=== PATIENT | female | born 1950 | race Caucasian/White ===

== ENCOUNTER → 2016-09-12 | Day surgery (SDC) | payer OTHER ==
[2016-09-11 08:50] VITALS: Ht 154.9 cm; Wt 74.1 kg
[~2016-09-12] VITALS: Ht 154.9 cm; Wt 74.1 kg
[~2016-09-12] MED LIST: ADVIN25/60 INH; ALBINS/ INH; ALBU18002 INH; ARIP20TA4 PO; ASPI325T39 PO; ASPI325T45 PO; ATOR10TA88 PO; BUPIVACAINE 0.25% 2.5MG/ML PF 10 ML VIAL ONE; BUPRTAB PO; BUPRTAB51 PO; CALC0.2510 PO; CHOL20009 PO; CLON2TAB3 PO; CYCL0.05 OPB; CYCL0.052 OP; CZR25 PO; DENO60SO SQ; DEXL60CA4 PO; DSY50 PO; DULO-24 PO; ESCI1TAB10 PO; FLUT0.0529; FLUT0.15 NAE; GLUC1CAP35 PO; GLUCPOW41 PO; HYDR200T5 PO; IMMU4INJ SQ; IOPAMIDOL INJ 61% 15 ML VIAL ONE; IPRASOL4 INH; LACTCAP3 PO; LEVO200T PO; LEVO200T6 PO; LIDOCAINE HCL 1% MPF 5 ML VIAL ONE; LOSA1TAB38 PO; METH1TAB81 PO; MIRT15TA53 PO; MIRT45TA PO; MONT1TAB3 PO; OMEG-112 PO; OMEG10007 PO; PANC6000 PO; PANT1TAB48 PO; PANT40TA PO; POTA1TAB PO; PRAM1TAB6 PO; PYRI50TA12 PO; RANI300T2 PO; ROPI0.25 PO; ROPI1TAB PO; ROPI8TAB PO; SENNTAB23 PO; SPIR1TAB72 PO; SPRIN/30 INH; TIOTCAP INH; TIZA4CAP PO; VNTHFA/IN INH; ZNTT/150 PO; [UNRECOGNIZED DRUG - CODE] SQ
--- NOTE | 2016-09-12 12:58 | History & Physical Bridge - [place] ---
H&P Re-Evaluation Bridge Note: I have examined the patient, reviewed the History & Physical and in the interval since the performance of the History & Physical I have noted the following changes of clinical significance: No changes noted
--- NOTE | 2016-09-12 13:22 | Discharge Instructions ---
Discharge Instructions Visit Reason for Visit: Sacroiliitis Discharge Discharge Diagnosis / Problem: right sacroilitits Medications Stopped Medications Name(s): ASA LAST DOSE Friday Activity Recommendations Activity Limitations: resume your previous activity Anesthesia . Post Anesthesia Instructions: If you have had General Anesthesia or IV Sedation: * Do not drive today. * Resume driving when surgeon permits. * Do not make important decisions or sign legal documents today. * Call surgeon for: 1. Temperature elevations greater than 101 degrees F. 2. Uncontrollable pain. 3. Excessive bleeding. 4. Persistent nausea and vomiting. 5. Medication intolerance (nausea, vomiting or rash). * For nausea and vomiting use only clear liquids such as: tea, soda, bouillon until nausea subsides, then gradually increase diet as tolerated. * If you have any concerns or questions, call your surgeon's office. If physician is unavailable and it is an emergency, call 911 or go to the nearest emergency room. . Diet Recommendations Recommended Home Diet: resume previous diet Procedures Procedures Performed: Right Sacroiliac Joint Injection Pending Studies Studies pending at discharge: no Medical Emergencies . Who to Call and When: Medical Emergencies: If at any time you feel your situation is an emergency, please call 911 immediately. . Non-Emergent Contact Non-Emergency issues call your: Specialist . . "Provider Documentation" section prepared by Roney Pelayo.
[2016-09-12 13:26] VITALS: TEMP 37
[2016-09-12 13:29] VITALS: BP 111/70; PULSE 68; O2SAT 95
--- NOTE | 2016-09-12 13:46 | OPERATIVE REPORT ---
DATE OF OPERATION: 09/12/2016 PREOPERATIVE DIAGNOSIS: Right sacroiliitis. POSTOPERATIVE DIAGNOSIS: Same. PROCEDURE: Right sacroiliac joint injection under fluoroscopic guidance. INDICATIONS: The patient is a 66-year-old white female who has received SI joint injections in the past with good results. Last one she received was a little more than 6 months ago; however, the pain has returned and is problematic to her. She presents today for a right sacroiliac joint injection under fluoroscopic guidance. PHYSICAL EXAMINATION: Pleasant female seated comfortably. She has point tenderness to palpation of her right SI joint. This is worse with extension and a positive David maneuver. Negative straight leg raises and intact sensation distally. CONSENT: Verbal and written consent was obtained from the patient. Risks and benefits were reviewed. Risks include but are not limited to abscess and allergic reaction. She wishes to proceed. PROCEDURE: The patient was taken back to the special procedures room of [facility]. She was maintained in a prone position. Backside was cleansed with Betadine x3 and a dry sterile dressing was applied. Fluoroscope was used to identify the right sacroiliac joint and the overlying skin was anesthetized with 4 mL of lidocaine 1% with a 25 gauge 1.5-inch needle. A 25 gauge 3.5 inch spinal needle was then directed under fluoroscopic guidance into the SI joint. There was a little give when it entered the joint and she then underwent injection after negative aspiration of 0.25 mL of Isovue 300 contrast which demonstrated intraarticular uptake and placement of the needle. She then underwent injection after negative aspiration of 40 mg of Depo-Medrol and 1.5 mL of bupivacaine 0.25%. Injection was well tolerated. DISPOSITION: 1. The patient is taken out into the discharge recovery area where she will be discharged home once discharge criteria have been met. 2. Follow up in the [facility] office in 2-4 weeks. I attest to the content of the Intraoperative Record and any orders documented therein. Any exceptio ns are noted below.
== END | disposition home or self-care (01) ==
LOC: X.SURG 12:15
PROVIDERS: ATTEND Physical Medicine & Rehabilitation
DX: M46.1 Sacroiliitis, not elsewhere classified (principal); M43.16 Spondylolisthesis, lumbar region

== ENCOUNTER → 2016-10-25 | Outpatient (CLI) | payer OTHER ==
[~2016-10-25] MED LIST changes: -BUPIVACAINE 0.25% 2.5MG/ML PF 10 ML VIAL ONE; -IOPAMIDOL INJ 61% 15 ML VIAL ONE; -LIDOCAINE HCL 1% MPF 5 ML VIAL ONE
[2016-10-25 11:13] LABS: HEMATOCRIT 42.7 % (37-47); MEAN CELL VOLUME 95.3 fL (80-100); MEAN CORPUSCULAR HEMOGLOBIN 32.4 pg (25-34); MEAN PLATELET VOLUME 9.5 fL (7.4-10.4); PLATELET COUNT 325 K/uL (130-400); RED BLOOD COUNT 4.48 M/uL (4.2-5.4); WHITE BLOOD COUNT 7.59 K/uL (4.8-10.8)
[2016-10-25 11:30] LABS: BLOOD UREA NITROGEN 29 mg/dl (7-18); BUN/CREATININE RATIO 24.1 (10-20); CALCIUM 9.1 mg/dl (8.5-10.1); CARBON DIOXIDE 29 mmol/L (21-32); CHLORIDE 100 mmol/L (98-107); GLUCOSE 94 mg/dl (70-99); PHOSPHORUS 2.4 mg/dl (2.5-4.9); POTASSIUM 4.2 mmol/L (3.5-5.1); SODIUM 138 mmol/L (136-145)
== END | disposition home or self-care (01) ==
LOC: C.LAB1850 10:01
PROVIDERS: ATTEND Internal Medicine Nephrology
DX: N18.3 Chronic kidney disease, stage 3 (moderate) (principal)

== ENCOUNTER → 2016-11-28 | Day surgery (SDC) | payer OTHER ==
[2016-11-11 08:07] VITALS: Ht 154.9 cm; Wt 74.1 kg
[~2016-11-28] VITALS: Ht 154.9 cm; Wt 74.1 kg
[~2016-11-28] MED LIST changes: +ATOR10TA82 PO; -ATOR10TA88 PO; +BUPIVACAINE 0.25% 2.5MG/ML PF 10 ML VIAL INFIL ONE; +CEPH500C2 PO; +IOPAMIDOL INJ 61% 15 ML VIAL ONE; +LIDOCAINE HCL 1% MPF 5 ML VIAL ONE; -ROPI0.25 PO
[2016-11-28 14:26] VITALS: TEMP 36.6
[2016-11-28 14:30] VITALS: BP 122/73
[2016-11-28 14:32] VITALS: PULSE 83; O2SAT 91
--- NOTE | 2016-11-28 14:45 | Discharge Instructions ---
Discharge Instructions Date of Service Nov 28, 2016. Visit Reason for Visit: Sacroiliitis Discharge Discharge Diagnosis / Problem: low back pain Discharge Goals Goal(s): Decrease discomfort, Improve function Medications Stopped Medications Name(s): Told to stop blood thinners last dose Friday for aspirin 325mg Activity Recommendations Activity Limitations: resume your previous activity Anesthesia . Post Anesthesia Instructions: If you have had General Anesthesia or IV Sedation: * Do not drive today. * Resume driving when surgeon permits. * Do not make important decisions or sign legal documents today. * Call surgeon for: 1. Temperature elevations greater than 101 degrees F. 2. Uncontrollable pain. 3. Excessive bleeding. 4. Persistent nausea and vomiting. 5. Medication intolerance (nausea, vomiting or rash). * For nausea and vomiting use only clear liquids such as: tea, soda, bouillon until nausea subsides, then gradually increase diet as tolerated. * If you have any concerns or questions, call your surgeon's office. If physician is unavailable and it is an emergency, call 911 or go to the nearest emergency room. . Diet Recommendations Recommended Home Diet: resume previous diet Procedures Procedures Performed: Left Sacroiliac Joint Injection Pending Studies Studies pending at discharge: no Medical Emergencies . Who to Call and When: Medical Emergencies: If at any time you feel your situation is an emergency, please call 911 immediately. . Non-Emergent Contact Non-Emergency issues call your: Specialist . . "Provider Documentation" section prepared by Roney Pelayo.
--- NOTE | 2016-11-28 15:38 | OPERATIVE REPORT ---
DATE OF OPERATION: 11/28/2016 PREOPERATIVE DIAGNOSIS: Left sacroiliitis. POSTOPERATIVE DIAGNOSIS: Same. PROCEDURE: Left sacroiliac joint injection under fluoroscopic guidance. INDICATIONS FOR PROCEDURE: The patient is a 66-year-old white female who has received positive responses to SI joint injections in the past, most recently in the right side and this was done in October 25. Since that time, she subsequently has had resolution of right-sided SI pain, but developed left-sided sacroiliac joint pain and presents today for an injection to provide her with relief. PHYSICAL EXAMINATION: Pleasant female seated comfortably. She has point tenderness to palpation of her left SI joint. It is worse with a little extension and a modified David maneuver is positive. Normal motor and sensory exam down the lower extremities. CONSENT: Verbal and written consent was obtained from the patient. Risks and benefits were reviewed. The risks include but are not limited to epidural abscess and allergic reaction. The patient wishes to proceed. DESCRIPTION OF PROCEDURE: The patient was taken back to the special procedures room of [facility]. She was maintained in a prone position. Backside was cleansed with Betadine x3 and a dry sterile dressing was applied. Fluoroscope was used to identify the left SI joint and the overlying skin was anesthetized with 3 mL of lidocaine 1% with a 25-gauge 1.5-inch needle. A 25-gauge 3.5-inch spinal needle was then directed under fluoroscopic guidance into the joint, it was advanced and then was a give as it entered the joint. Isovue 300 contrast 0.25 of a mL was injected in which demonstrated intraarticular uptake. She then underwent injection after negative aspiration of 40 mg of Depo-Medrol and 1.5 mL of preservative free sodium chloride. Injection was well tolerated. DISPOSITION: 1. The patient is taken out into the discharge recovery area where she will be discharged home once discharge criteria have been met. 2. Follow up in the [facility] office in 2-4 weeks. I attest to the content of the Intraoperative Record and any orders documented therein. Any exceptio ns are noted below.
== END | disposition home or self-care (01) ==
LOC: X.SURG 13:52
PROVIDERS: ATTEND Physical Medicine & Rehabilitation
DX: M46.1 Sacroiliitis, not elsewhere classified (principal)

== ENCOUNTER → 2017-02-13 | Day surgery (SDC) | payer OTHER ==
[2017-01-23 14:09] VITALS: Ht 154.9 cm; Wt 74.1 kg
[~2017-02-13] VITALS: Ht 154.9 cm; Wt 74.1 kg
[~2017-02-13] MED LIST changes: -BUPIVACAINE 0.25% 2.5MG/ML PF 10 ML VIAL INFIL ONE; +BUPIVACAINE 0.25% 2.5MG/ML PF 10 ML VIAL ONE
[2017-02-13 13:33] VITALS: TEMP 36.2
--- NOTE | 2017-02-13 13:39 | Discharge Instructions ---
Discharge Instructions Date of Service Feb 13, 2017. Visit Reason for Visit: Sacriliitis Discharge Discharge Diagnosis / Problem: low back pain Discharge Goals Goal(s): Decrease discomfort, Improve function Activity Recommendations Activity Limitations: resume your previous activity Anesthesia . Post Anesthesia Instructions: If you have had General Anesthesia or IV Sedation: * Do not drive today. * Resume driving when surgeon permits. * Do not make important decisions or sign legal documents today. * Call surgeon for: 1. Temperature elevations greater than 101 degrees F. 2. Uncontrollable pain. 3. Excessive bleeding. 4. Persistent nausea and vomiting. 5. Medication intolerance (nausea, vomiting or rash). * For nausea and vomiting use only clear liquids such as: tea, soda, bouillon until nausea subsides, then gradually increase diet as tolerated. * If you have any concerns or questions, call your surgeon's office. If physician is unavailable and it is an emergency, call 911 or go to the nearest emergency room. . Diet Recommendations Recommended Home Diet: resume previous diet Pending Studies Studies pending at discharge: no Medical Emergencies . Who to Call and When: Medical Emergencies: If at any time you feel your situation is an emergency, please call 911 immediately. . Non-Emergent Contact Non-Emergency issues call your: Specialist . . "Provider Documentation" section prepared by Roney Pelayo. .
[2017-02-13 13:48] VITALS: BP 111/73; PULSE 74; O2SAT 96
--- NOTE | 2017-02-13 13:58 | OPERATIVE REPORT ---
DATE OF OPERATION: 02/13/2017 PREOPERATIVE DIAGNOSES: Right sacroiliitis and underlying lupus. POSTOPERATIVE DIAGNOSES: Same. PROCEDURE: Right sacroiliac joint injection under fluoroscopic guidance. INDICATIONS: The patient is a 66-year-old white female who underwent a left SI joint for sacroiliitis and reports that it did fantastic with resolution of left-sided pain. She subsequently developed pain on the right side. She has underlying lupus and presents today for an injection to provide her with relief of the sacroiliitis. PHYSICAL EXAMINATION: Pleasant female, seated comfortably. She is tender to palpation over her right SI joint. Left is nontender. The pain gets worse with extension. There is a positive David maneuver and she has normal lower extremity sensation and strength. CONSENT: Verbal and written consent was obtained from the patient. Risks and benefits were reviewed. Risks include, but are not limited to infection and allergic reaction. She wishes to proceed. DESCRIPTION OF PROCEDURE: The patient was taken back into the special procedures room of the [facility], where she was maintained in a prone position. Backside was cleansed with Betadine x3. Dry sterile dressing was applied. Fluoroscope was used to identify the right SI joint. Overlying skin was anesthetized with 2.5 mL of lidocaine 1% with a 25-gauge 1-1/2 inch needle. A 25-gauge 3-1/2 inch spinal needle was directed under fluoroscopic guidance into the joint. She then underwent injection after negative aspiration of Isovue 300 contrast 0.25 mL, which showed intraarticular uptake. This was then followed by injection of 40 mg of Depo-Medrol and 1.5 mL of bupivacaine 0.25%. Injection was well tolerated. DISPOSITION: 1. The patient was taken out into the discharge recovery area, where she will be discharged home once discharge criteria have been met. 2. Follow up in the [facility] office in 4 weeks' time. I attest to the content of the Intraoperative Record and any orders documented therein. Any exception s are noted below.
== END | disposition home or self-care (01) ==
LOC: X.SURG 12:38
PROVIDERS: ATTEND Physical Medicine & Rehabilitation
DX: M46.1 Sacroiliitis, not elsewhere classified (principal); M32.9 Systemic lupus erythematosus, unspecified

== ENCOUNTER → 2017-03-26 | Outpatient (CLI) | payer OTHER ==
[~2017-03-26] MED LIST changes: -ATOR10TA82 PO; +ATOR10TA88 PO; -BUPIVACAINE 0.25% 2.5MG/ML PF 10 ML VIAL ONE; -CEPH500C2 PO; -IOPAMIDOL INJ 61% 15 ML VIAL ONE; -LIDOCAINE HCL 1% MPF 5 ML VIAL ONE
--- NOTE | 2017-03-26 12:04 | DIAGNOSTIC IMAGING REPORT ---
ABDOMEN LIMITED (US) CLINICAL HISTORY: R94.5 abnormal liver enzymes COMPARISON STUDY: No previous studies for comparison. FINDINGS: The pancreas appears normal as visualized. There is slightly coarsened hepatic echotexture without evidence of focal mass. The gallbladder surgically absent. There is no ductal dilatation. The common bile duct measures 5 mm. There is no right-sided hydronephrosis. IMPRESSION: Surgically absent gallbladder. Slightly coarsened hepatic echotexture without evidence of focal mass. No ductal dilatation Electronically signed by: Conrad Fierro M.D. 03/26/2017 12:03 PM Dictated Date/Time: 03/26/2017 12:02 PM
== END | disposition home or self-care (01) ==
LOC: C.ULTR 11:19
PROVIDERS: ATTEND Family Medicine
DX: R94.5 Abnormal results of liver function studies (principal)

== ENCOUNTER → 2017-04-08 | Outpatient (CLI) | payer OTHER ==
--- NOTE | 2017-04-08 09:36 | DIAGNOSTIC IMAGING REPORT ---
CHEST 2 VIEWS ROUTINE CLINICAL HISTORY: 66 years-old Female presenting with CHRONIC COUGH. TECHNIQUE: PA and lateral views of the chest were obtained. COMPARISON: 03/04/2016. FINDINGS: Left-sided implanted medical records technician projects over the left mid lung, unchanged. Cardiomediastinal silhouette normal. Lungs and pleural spaces clear. Chronic deformity of the right humeral neck consistent with prior fracture. Surgical clips projecting over the right upper quadrant may be present. IMPRESSION: 1. No acute cardiopulmonary disease. Electronically signed by: Daryl Curtis M.D. 04/08/2017 9:35 AM Dictated Date/Time: 04/08/2017 9:34 AM
== END | disposition home or self-care (01) ==
LOC: C.RAD1850 09:02
PROVIDERS: ATTEND Student in an Organized Health Care Education/Training Program
DX: R05 Cough (principal)

== ENCOUNTER 2017-04-10 10:05 | Emergency (ER) | payer OTHER ==
[~2017-04-10] VITALS: Ht 152.4 cm; Wt 76.6 kg
[~2017-04-10 10:05] MED LIST changes: -ADVIN25/60 INH; -ALBINS/ INH; -ALBU18002 INH; -ASPI325T39 PO; -ATOR10TA88 PO; -BUPRTAB PO; -CYCL0.052 OP; -CZR25 PO; -DEXL60CA4 PO; -DSY50 PO; -DULO-24 PO; -FLUT0.15 NAE; -GLUC1CAP35 PO; -LEVO200T6 PO; -MIRT15TA53 PO; -OMEG10007 PO; -PANT40TA PO; -PRAM1TAB6 PO; -PYRI50TA12 PO; -ROPI1TAB PO; -SPIR1TAB72 PO; -SPRIN/30 INH; -TIZA4CAP PO; -ZNTT/150 PO; -[UNRECOGNIZED DRUG - CODE] SQ
[2017-04-10 10:30] VITALS: TEMP 36.6; Ht 152.4 cm; Wt 76.6 kg
[2017-04-10] MEDS ORDERED: SODIUM CHLORIDE 0.9% 1000ML 1,000 ML IV STA (10:56)
[2017-04-10] MEDS ORDERED: OPTIRAY 320 IV PRN (11:15)
--- NOTE | 2017-04-10 11:25 | DIAGNOSTIC IMAGING REPORT ---
CHEST ONE VIEW PORTABLE CLINICAL HISTORY: Atypical chest pain COMPARISON STUDY: 04/08/2017 FINDINGS: The cardiac and mediastinal contours are normal. There is no evidence of focal pulmonary consolidation. There is no evidence of failure. No pleural effusions are visualized.[ There are minimal basilar atelectatic changes. There is a cranial neurostimulator projected over the left chest wall. There are old posterior back deformity is involving the right shoulder. IMPRESSION: No active disease in the chest. Electronically signed by: Conrad Fierro M.D. 04/10/2017 11:24 AM Dictated Date/Time: 04/10/2017 11:19 AM
--- NOTE | 2017-04-10 11:30 | EMERGENCY ROOM VISIT NOTE ---
History Report prepared by Danyelle: Sammi Martinez Under the Supervision of: Dr. Santi Lima M.D. First contact with patient: 10:53 Chief Complaint: NEURO SYMPTOMS Stated Complaint: RIGHT ARM GOING NUMB Nursing Triage Summary: Patient ambulatory to triage using cane. Pt states when she was showering this morning her right arm went numb 3 times. Pt states she felt weak all over, has a history of TIAs. Pt states "I feel okay (now)" History of Present Illness The patient is a 66 year old female who presents to the Emergency Room with complaints of an episode for neurological symptoms starting 2 and a half hours ago. The patient states that she woke up this morning and noticed she was shaky. She states when she got a shower and was washing her hair, her left arm became numb. She reports that she couldn't director search her arm at all. She states that 3 episodes of this happened. She reports that her arm has been intermittently tingling. The patient complains of a cough, a headache, and feeling the need to over articulate her words. The patient denies fevers, chills , congestion, nausea, vomiting, diarrhea, constipation, and dizziness. She notes a history of TIA, Lupus, and an essential tremor that required an insertion of a brain stimulator with a neuro transmitter. She notes that she takes an Aspirin daily and had a sinus infection a month ago. Source of History: patient Onset: 2 and a half hours ago Position: other (global) Quality: other (global) Timing: other (episode) Associated Symptoms: + headache, + cough, + numbness, No fevers, No chills, No nausea, No vomiting, No diarrhea Note: The patient complains of tingling and the need to over articulate her words. The patient denies congestion, constipation, and dizziness. Review of Systems See HPI for pertinent positives and negatives. A total of ten systems were reviewed and were otherwise negative. Past Medical & Surgical Medical Problems: (1) Asthma (2) HTN (hypertension) (3) Lupus (4) Osteoporosis (5) TIA (transient ischemic attack) Surgical Problems: (1) H/O: hysterectomy (2) History of cholecystectomy (3) S/P deep brain stimulator placement (4) Status post breast reduction Family History No pertinent family history Social History Smoking Status: Never Smoker Drug Use: none Marital Status: Housing Status: lives with significant other Occupation Status: disabled Current/Historical Medications Scheduled Aripiprazole (Abilify), 20 MG PO DAILY Aspirin (Aspirin Ec), 325 MG PO DAILY Atorvastatin (Lipitor), 10 MG PO HS Bupropion Hcl (Wellbutrin Xl), 150 MG PO DAILY Clonazepam (Klonopin), 1 MG PO AMPM Clonazepam (Klonopin), 2 MG PO QPM Cyclosporine (Ophth) (Restasis), 1 DROP OP BID Denosumab (Prolia), 60 MG SQ [id number] Dexlansoprazole (Dexilant), 60 MG PO UD Duloxetine HCl (Cymbalta), 20 MG PO DAILY Escitalopram Oxalate (Lexapro), 20 MG PO DAILY Fish Oil ([place]-3), 2 CAP PO DAILY Fluticasone Prop/Salmeterol (Advair Diskus 250/50 60 Dose), 1 PUFF INH BID Fluticasone Propionate (Nasal) (Flonase Allergy Relief), 2 SPRAYS RUEL DAILY Sacetxckcps-Founctssdbh-Frg C- (Glucosamine Chondroitin), 1 CAP PO DAILY Hctz/Spironolactone (Spironolactone/Hydrochlor 25-25 mg), 2 TAB PO DAILY Hydroxychloroquine Sulfate (Plaquenil), 400 MG PO DAILY Immune Globulin (Human) Subcut (Hizentra), 12 GM SQ Q7DAYS Levothyroxine Sodium (Levothyroxine Sodium), 200 MCG PO DAILY Losartan Potassium (Losartan Potassium), 25 MG PO DAILY Mirtazapine (Mirtazapine), 15 MG PO HS Pancrelipase (Lipase-Protease- (Creon), 24,000 UNITS PO QID Pantoprazole (Protonix), 40 MG PO DAILY Pramipexole Dihydrochloride (Pramipexole Dihydrochlori), 3.5 TAB PO DAILY Pyridoxine Hcl (Pyridoxine Hcl), 50 MG PO DAILY Ropinirole (Requip), 1 TAB PO TID Tiotropium [place] (Spiriva Handihaler), 1 CAP INH DAILY Tizanidine (Zanaflex), 4 MG PO HS Trazodone HCl (Trazodone HCl), 25 MG PO HS Scheduled PRN Albuterol Sulf (Proventil 0.083% 2.5MG/3ML), 2.5 MG INH Q6 PRN for SOB/Wheezing Albuterol Sulfate (Proair Respiclick), 2 PUFFS INH QID PRN for Wheezing Ranitidine (Zantac), 300 MG PO HS PRN for ACID REFLUX Allergies Coded Allergies: Sumatriptan (Verified Allergy, Severe, ANAPHYLAXIS, 02/13/17) Amlodipine (Verified Allergy, Mild, HIVES, 02/13/17) Cyclobenzaprine (Verified Allergy, Unknown, VERTIGO, 02/13/17) Gabapentin (Verified Allergy, Unknown, STROKE SYMPTOMS, 02/13/17) Methocarbamol (Verified Allergy, Unknown, VERTIGO, 02/13/17) Codeine (Verified Adverse Reaction, Mild, GI SYMPTOMS, 02/13/17) HEADACHE AND STOMACH UPSET Physical Exam Vital Signs Date Time Temp Pulse Resp B/P (MAP) Pulse Ox O2 Delivery O2 Flow Rate FiO2 04/10/17 17:03 75 20 117/77 94 04/10/17 16:16 79 04/10/17 15:45 82 25 04/10/17 15:31 154/69 04/10/17 15:15 24 04/10/17 15:04 74 20 146/80 96 Room Air 04/10/17 14:45 74 22 93 04/10/17 14:34 146/80 04/10/17 14:10 74 92 04/10/17 13:40 70 94 04/10/17 13:22 147/81 04/10/17 13:10 73 17 04/10/17 12:40 65 23 94 04/10/17 12:35 80 15 138/60 96 04/10/17 12:05 75 04/10/17 12:05 75 16 04/10/17 10:30 36.6 73 17 125/78 98 Room Air Physical Exam GENERAL: Awake, alert, well-appearing, in no distress. Tremulous. HENT: Normocephalic, atraumatic. Dry mucus membranes. EYES: Normal conjunctiva. Sclera non-icteric. NECK: Supple. No nuchal rigidity. FROM. No JVD. RESPIRATORY: Clear to auscultation. CARDIAC: Regular rate, normal rhythm. Extremities warm and well perfused. Pulses equal. ABDOMEN: Soft, non-distended. No tenderness to palpation. No rebound or guarding. No masses. RECTAL: Deferred. MUSCULOSKELETAL: Chest examination reveals no tenderness. The back is symmetrical on inspection without obvious abnormality. There is no CVA tenderness to palpation. No joint edema. LOWER EXTREMITIES: Calves are equal size bilaterally and non-tender. No edema. No discoloration. NEURO: Normal sensorium. No sensory or motor deficits noted. Slowed speech but clear with good articulation. Mild dysmetria on the left finger to nose. Gait appears compensated. Otherwise neuro intact. SKIN: No rash or jaundice noted. Medical Decision & Procedures ER Provider Diagnostic Interpretation: Radiology results as stated below per my review and radiologist interpretation: CT ANGIOGRAPHY HEAD COMBO CT DOSE: 981.54 mGy.cm CLINICAL HISTORY: Arm numbness. Possible stroke. TECHNIQUE: Unenhanced images are obtained through the brain. The patient was then rescanned in a dynamic helical fashion during intravenous administration of 118 cc Optiray 320. Arterial phase angiographic images were acquired. MIP images were acquired. A dose lowering technique was utilized adhering to the principles of ALARA. COMPARISON STUDY: Noncontrast head CT dated 12/26/2015 FINDINGS: The noncontrast study, no intra or extra-axial mass lesions are visualized. There are bilateral deep brain thalamic stimulators. There is no acute hemorrhage. There is no midline shift. There is no hydrocephalus. There is no evidence of acute sinusitis. 6 postcontrast images reveal no evidence of major intracranial branch occlusion. There are minor intracranial atheromatous changes. There are no major intracranial branch occlusions. There are no lesion suspicious for aneurysm. There is no evidence of dural venous sinus thrombosis. There is an incidental left frontal developmental venous anomaly IMPRESSION: 1. Bilateral deep brain thalamic stimulators 2. No acute intracranial findings 3. Left frontal developmental venous anomaly 4. No evidence of aneurysm. No major intracranial branch occlusions Electronically signed by: Conrad Fierro M.D. 04/10/2017 1:05 PM Dictated Date/Time: 04/10/2017 1:01 PM CHEST ONE VIEW PORTABLE CLINICAL HISTORY: Atypical chest pain COMPARISON STUDY: 04/08/2017 FINDINGS: The cardiac and mediastinal contours are normal. There is no evidence of focal pulmonary consolidation. There is no evidence of failure. No pleural effusions are visualized.[ There are minimal basilar atelectatic changes. There is a cranial neurostimulator projected over the left chest wall. There are old posterior back deformity is involving the right shoulder. IMPRESSION: No active disease in the chest. Electronically signed by: Conrad Fierro M.D. 04/10/2017 11:24 AM Dictated Date/Time: 04/10/2017 11:19 AM NECK ANGIO WITH CONTRAST HISTORY: Mental status change peripheral neuropathy TECHNIQUE: Multiaxial CT images of the neck were performed following the intravenous administration of contrast to evaluate the major cervical vessels. Maximum intensity projection images were also obtained. All measurements were calculated based on NASCET criteria. A dose lowering technique was utilized adhering to the principles of ALARA. COMPARISON STUDY: None. FINDINGS: The aortic arch and proximal great vessels are widely patent. There is no significant stenosis, occlusion, or dissection identified within the bilateral common carotid, internal carotid, or vertebral arteries. Minimal scattered plaque formation. Mild narrowing distal right vertebral artery felt to be anatomic. IMPRESSION: No significant stenosis, occlusion, or dissection identified within the carotid or vertebral arteries. Minimal scattered plaque formation The above report was generated using voice recognition software. It may contain grammatical, syntax or spelling errors. Electronically signed by: Gamal Toledo M.D. 04/10/2017 1:06 PM Dictated Date/Time: 04/10/2017 1:02 PM Laboratory Results 04/10/17 11:30 Red Blood Count 4.45, Mean Corpuscular Volume 93.0, Mean Corpuscular Hemoglobin 31.9, Mean Corpuscular Hemoglobin Concent 34.3, Mean Platelet Volume 9.5, Neutrophils (%) (Auto) 67.2, Lymphocytes (%) (Auto) 18.7, Monocytes (%) (Auto) 10.7, Eosinophils (%) (Auto) 2.7, Basophils (%) (Auto) 0.5, Neutrophils # (Auto ) 2.70, Lymphocytes # (Auto) 0.75, Monocytes # (Auto) 0.43, Eosinophils # (Auto ) 0.11, Basophils # (Auto) 0.02 04/10/17 11:30 Test 04/10/17 11:30 04/10/17 13:15 White Blood Count 4.02 K/uL (4.8-10.8) Red Blood Count 4.45 M/uL (4.2-5.4) Hemoglobin 14.2 g/dL (12.0-16.0) Hematocrit 41.4 % (37-47) Mean Corpuscular Volume 93.0 fL (80-100) Mean Corpuscular Hemoglobin 31.9 pg (25-34) Mean Corpuscular Hemoglobin Concent 34.3 g/dl (32-36) Platelet Count 266 K/uL (130-400) Mean Platelet Volume 9.5 fL (7.4-10.4) Neutrophils (%) (Auto) 67.2 % Lymphocytes (%) (Auto) 18.7 % Monocytes (%) (Auto) 10.7 % Eosinophils (%) (Auto) 2.7 % Basophils (%) (Auto) 0.5 % Neutrophils # (Auto) 2.70 K/uL (1.4-6.5) Lymphocytes # (Auto) 0.75 K/uL (1.2-3.4) Monocytes # (Auto) 0.43 K/uL (0.11-0.59) Eosinophils # (Auto) 0.11 K/uL (0-0.5) Basophils # (Auto) 0.02 K/uL (0-0.2) RDW Standard Deviation 45.9 fL (36.4-46.3) RDW Coefficient of Variation 13.5 % (11.5-14.5) Immature Granulocyte % (Auto) 0.2 % Immature Granulocyte # (Auto) 0.01 K/uL (0.00-0.02) Anion Gap 3.0 mmol/L (3-11) Est Creatinine Clear Calc Drug Dose 54.3 ml/min Estimated GFR () 74.7 Estimated GFR (Non- 64.4 BUN/Creatinine Ratio 13.4 (10-20) Calcium Level 9.1 mg/dl (8.5-10.1) Phosphorus Level 2.7 mg/dl (2.5-4.9) Magnesium Level 2.1 mg/dl (1.8-2.4) Troponin I < 0.015 ng/ml (0-0.045) Urine Color YELLOW Urine Appearance CLEAR (CLEAR) Urine pH 7.5 (4.5-7.5) Urine Specific [place] 1.020 (1.000-1.030) Urine Protein NEG (NEG) Urine Glucose (UA) NEG (NEG) Urine Ketones NEG (NEG) Urine Occult Blood NEG (NEG) Urine Nitrite NEG (NEG) Urine Bilirubin NEG (NEG) Urine Urobilinogen NEG (NEG) Urine Leukocyte Esterase NEG (NEG) Laboratory results reviewed by me Medications Administered Medications (Trade) Dose Ordered Sig/Heather Route Start Time Stop Time Status Last Admin Dose Admin Sodium Chloride 1,000 ml @ 999 mls/hr Q1H1M STAT IV 04/10/17 10:56 04/10/17 11:56 DC 04/10/17 11:36 999 MLS/HR ECG Indication: weakness Rate (beats per minute): 73 Rhythm: sinus rhythm Findings: PVC, no acute ischemic change, other (normal axis) ED Course 1055: The patient was evaluated in room C1B. A complete history and physical exam was performed. 1056: Ordered NSS 1000 ml @ 999 mls/hr IV. 1442: I discussed the patient's case with Dr. Hutton. He states that the patient does not need to be transferred and that the appropriate work up was completed. He states that if the patient is feeling at baseline then she can be discharged and follow up with neurology. Otherwise, the patient should be further observed by internal medicine. 1505: I reevaluated the patient. The patient does not feel at baseline and would like to be further observed. 1532: Discussed the patient's case with Dr. Tran. The patient will be evaluated for further treatment and disposition. 1654: The patient did not want to stay for further evaluation so she will be discharged home. She verbalized understanding and agreement. The patient is ready for discharge. Medical Decision I reviewed the patient's past medical history, medications, and the nursing notes as described above. Differential diagnoses include movement disorder, TIA, stroke, dehydration, electrolyte abnormality, infection pulmonary vs urinary. Patient is a 66-year-old woman with a past medical history of previous TIAs well as refractory essential tremor required deep brain stimulator resents emergency department with acute onset left arm tingling numbness and weakness lasting 5 seconds per history of present illness. On arrival the patient reports that the symptoms mostly resolved although her speech was slightly slowed which was different from normal and her gait appeared slightly compensated which was also not her baseline. Otherwise, patient. Neurologically intact. Mucous members are dry the patient's clinically dry appearance. Patient was given IV fluids with improvement in her symptoms. Otherwise CT CTA of the patient's head and neck was done and was negative for any acute findings with patent vessels. Labs otherwise unremarkable including negative UA. Chest x-ray unremarkable. Discussed with neurology senior radiation therapist for the patient's neurologist Dr. Doewll who did not feel the patient required immediate transfer to [place] where the patient's DBS was placed. Recommended that if the patient was improved symptomatically could be discharged to follow- up with her neurologist or if there are additional concerns could be observed overnight to see if symptoms recur. Initially the patient was agreeable for overnight observation. Patient was seen by medicine hospitalist and in the interim the patient reconsidered and preferred discharge. Considering the patient was back to baseline, discharge with close neuro follow-up reasonable. Findings and plan for follow-up d/w patient. Patient agreeable and d/c'd per discharge instructions. Medication Reconcilliation Current Medication List: was personally reviewed by me Blood Pressure Screening Patient's blood pressure: Elevated blood pressure Blood pressure disposition: Elevated BP felt to be situational Consults Time Called: 1440 Consulting Physician: Dr. Hutton- Oncology Returned Call: 1442 I discussed the patient's case with Dr. Hutton. He states that the patient does not need to be transferred and that the appropriate work up was completed. He states that if the patient is feeling at baseline then she can be discharged and follow up with neurology. Otherwise, the patient should be further observed by internal medicine. Additional Consults: Time Called: 1526 Consulted Physician: Dr. Tran- Internal Medicine Returned Call: 1530 Additional Comments: Discussed the patient's case with Dr. Tran. The patient will be evaluated for further treatment and disposition. Impression Primary Impression: Paresthesia Additional Impression: Weakness of extremity Scribe Attestation The scribe's documentation has been prepared under my direction and personally reviewed by me in its entirety. I confirm that the note above accurately reflects all work, treatment, procedures, and medical decision making performed by me. Departure Information Dispostion Home / Self-Care Referrals Alyse Iglesias M.D. (PCP) Forms HOME CARE DOCUMENTATION FORM, IMPORTANT VISIT INFORMATION, WORK / SCHOOL INSTRUCTIONS Patient Instructions ED Paraesthesias, ED Weakness [facility], My [facility] Additional Instructions Please follow up with your neurologist in the next 1-3 days for reevaluation. You were mildly dehydrated which may have precipitated your symptoms. Otherwise, your exam, lab results, CT scan did not show signs of an emergent condition at this time. Drink plenty of fluids and ensure hydration. Return to the emergency department for worsening symptoms as described in the accompanying instructions. Problem Qualifiers
[2017-04-10 11:42] LABS: BASO % 0.5 %; BASO ABS # 0.02 K/uL (0-0.2); COMPLETE YES; EOS % 2.7 %; HEMATOCRIT 41.4 % (37-47); IG% 0.2 %; LYMPH % 18.7 %; LYMPH ABS # 0.75 K/uL (1.2-3.4); MEAN CORPUSCULAR HEMOGLOBIN 31.9 pg (25-34); MEAN CORPUSCULAR HGB CONC 34.3 g/dl (32-36); MEAN PLATELET VOLUME 9.5 fL (7.4-10.4); MONO % 10.7 %; NEUT % 67.2 %; PLATELET COUNT 266 K/uL (130-400); RED BLOOD COUNT 4.45 M/uL (4.2-5.4); WHITE BLOOD COUNT 4.02 K/uL (4.8-10.8)
[2017-04-10 12:00] LABS: BLOOD UREA NITROGEN 12 mg/dl (7-18); BUN/CREATININE RATIO 13.4 (10-20); CALCIUM 9.1 mg/dl (8.5-10.1); CARBON DIOXIDE 31 mmol/L (21-32); CHLORIDE 98 mmol/L (98-107); CREATININE 0.92 mg/dl (0.60-1.20); GLUCOSE 86 mg/dl (70-99); MAGNESIUM 2.1 mg/dl (1.8-2.4); POTASSIUM 3.7 mmol/L (3.5-5.1); SODIUM 132 mmol/L (136-145)
[2017-04-10] MEDS ORDERED: HYDR200T5 PO (12:02)
[2017-04-10] MEDS ORDERED: ADVIN25/60 INH (12:02)
[2017-04-10] MEDS ORDERED: SPIR1TAB72 PO (12:02)
[2017-04-10] MEDS ORDERED: ALBINS/ INH (12:02)
[2017-04-10] MEDS ORDERED: ESCI1TAB10 PO (12:02)
[2017-04-10] MEDS ORDERED: ASPI325T39 PO (12:02)
[2017-04-10] MEDS ORDERED: LEVO200T6 PO (12:02)
[2017-04-10] MEDS ORDERED: GLUC1CAP35 PO (12:02)
[2017-04-10] MEDS ORDERED: ZNTT/150 PO (12:02)
[2017-04-10] MEDS ORDERED: CZR25 PO (12:02)
[2017-04-10] MEDS ORDERED: CLON2TAB3 PO ×2 (12:02)
[2017-04-10] MEDS ORDERED: PANT40TA PO (12:02)
[2017-04-10] MEDS ORDERED: BUPRTAB PO (12:02)
[2017-04-10] MEDS ORDERED: ARIP20TA4 PO (12:02)
[2017-04-10] MEDS ORDERED: DENO60SO SQ (12:02)
[2017-04-10] MEDS ORDERED: TIZA4CAP PO (12:02)
[2017-04-10] MEDS ORDERED: DULO-24 PO (12:02)
[2017-04-10] MEDS ORDERED: CYCL0.052 OP (12:02)
[2017-04-10] MEDS ORDERED: PANC6000 PO (12:02)
[2017-04-10] MEDS ORDERED: ALBU18002 INH (12:02)
[2017-04-10] MEDS ORDERED: PYRI50TA12 PO (12:02)
[2017-04-10] MEDS ORDERED: OMEG10007 PO (12:02)
[2017-04-10] MEDS ORDERED: ROPI1TAB PO (12:02)
[2017-04-10] MEDS ORDERED: [UNRECOGNIZED DRUG - CODE] SQ (12:02)
[2017-04-10] MEDS ORDERED: ATOR10TA88 PO (12:02)
[2017-04-10] MEDS ORDERED: SPRIN/30 INH (12:02)
[2017-04-10] MEDS ORDERED: PRAM1TAB6 PO (12:02)
[2017-04-10] MEDS ORDERED: FLUT0.15 NAE (12:02)
[2017-04-10] MEDS ORDERED: DSY50 PO (12:02)
[2017-04-10] MEDS ORDERED: MIRT15TA53 PO (12:02)
[2017-04-10] MEDS ORDERED: DEXL60CA4 PO (12:02)
[2017-04-10 12:05] LABS: PHOSPHORUS 2.7 mg/dl (2.5-4.9)
--- NOTE | 2017-04-10 13:07 | DIAGNOSTIC IMAGING REPORT ---
CT ANGIOGRAPHY HEAD COMBO CT DOSE: 981.54 mGy.cm CLINICAL HISTORY: Arm numbness. Possible stroke. TECHNIQUE: Unenhanced images are obtained through the brain. The patient was then rescanned in a dynamic helical fashion during intravenous administration of 118 cc Optiray 320. Arterial phase angiographic images were acquired. MIP images were acquired. A dose lowering technique was utilized adhering to the principles of ALARA. COMPARISON STUDY: Noncontrast head CT dated 12/26/2015 FINDINGS: The noncontrast study, no intra or extra-axial mass lesions are visualized. There are bilateral deep brain thalamic stimulators. There is no acute hemorrhage. There is no midline shift. There is no hydrocephalus. There is no evidence of acute sinusitis. 6 postcontrast images reveal no evidence of major intracranial branch occlusion. There are minor intracranial atheromatous changes. There are no major intracranial branch occlusions. There are no lesion suspicious for aneurysm. There is no evidence of dural venous sinus thrombosis. There is an incidental left frontal developmental venous anomaly IMPRESSION: 1. Bilateral deep brain thalamic stimulators 2. No acute intracranial findings 3. Left frontal developmental venous anomaly 4. No evidence of aneurysm. No major intracranial branch occlusions Electronically signed by: Conrad Fierro M.D. 04/10/2017 1:05 PM Dictated Date/Time: 04/10/2017 1:01 PM
--- NOTE | 2017-04-10 13:08 | DIAGNOSTIC IMAGING REPORT ---
NECK ANGIO WITH CONTRAST HISTORY: Mental status change peripheral neuropathy TECHNIQUE: Multiaxial CT images of the neck were performed following the intravenous administration of contrast to evaluate the major cervical vessels. Maximum intensity projection images were also obtained. All measurements were calculated based on NASCET criteria. A dose lowering technique was utilized adhering to the principles of ALARA. COMPARISON STUDY: None. FINDINGS: The aortic arch and proximal great vessels are widely patent. There is no significant stenosis, occlusion, or dissection identified within the bilateral common carotid, internal carotid, or vertebral arteries. Minimal scattered plaque formation. Mild narrowing distal right vertebral artery felt to be anatomic. IMPRESSION: No significant stenosis, occlusion, or dissection identified within the carotid or vertebral arteries. Minimal scattered plaque formation The above report was generated using voice recognition software. It may contain grammatical, syntax or spelling errors. Electronically signed by: Gamal Toledo M.D. 04/10/2017 1:06 PM Dictated Date/Time: 04/10/2017 1:02 PM
[2017-04-10 13:40] LABS: URINE APPEARANCE CLEAR (CLEAR); URINE BILIRUBIN NEG (NEG); URINE COLOR YELLOW; URINE NITRITE NEG (NEG); URINE PH 7.5 (4.5-7.5); UROBILINOGEN NEG (NEG); ZZUR CULT IF INDIC CLEAN CATCH NO
[2017-04-10 13:41] LABS: MANUAL MICROSCOPIC REQUIRED? NO; REVIEW REQ? NO
--- NOTE | 2017-04-10 16:23 | Medical Consult ---
History General Date of Service: Apr 10, 2017. Stated Complaint: Right Arm Going Numb HPI The patient is a 66 year old female who presents to [facility] with complaints of Right Arm Going Numb. The patient's primary care provider is Alyse Iglesias M.D.. This patient presents with transient right arm numbness. The patient says she said for regain of her bili right arm. 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 Patient states during the episode she had no facial droop slurring of speech inability to speak or weakness of her legs that she was standing in the shower. She said she felt this going up towards the bicep area but not involving the shoulder on the right. The patient denies any other recent changes in medication or changes in her health she does take a daily aspirin. She currently is in her normal state Review of Systems ROS: well nourished well developed No double vision blurry vision No problems with speech or swallowing No palpitations, chest pain or pressure No Wheezing or breathing issues No abdominal pain nausea vomiting diarrhea changes in appetite or weight No burning urine urine frequency or changes in color No focal joint pain or muscle pain No skin rashes or oral lesions No unusual bruising or bleeding No focused back pain or numbness or loss of strength is transient and is completely return to normal No changes in memory or confusion Family History No pertinent family history Social History Hx Tobacco Use In Past Year?: No Smoking Status: Never Smoker Marital status: Housing status: lives with family Occupational Status: disabled Immunizations History of Influenza Vaccine: Yes History of Tetanus Vaccine?: Unknown History of Pneumococcal: No History of Hepatitis B Vaccine: No History of MDRO History of MDRO: No Allergies Coded Allergies: Sumatriptan (Verified Allergy, Severe, ANAPHYLAXIS, 02/13/17) Amlodipine (Verified Allergy, Mild, HIVES, 02/13/17) Cyclobenzaprine (Verified Allergy, Unknown, VERTIGO, 02/13/17) Gabapentin (Verified Allergy, Unknown, STROKE SYMPTOMS, 02/13/17) Methocarbamol (Verified Allergy, Unknown, VERTIGO, 02/13/17) Codeine (Verified Adverse Reaction, Mild, GI SYMPTOMS, 02/13/17) HEADACHE AND STOMACH UPSET Current Medications Reported Home Medications Medications Dose Route/Sig Max Daily Dose Days Date Category Dose Instructions Trazodone HCl 50 Mg Tab 25 Mg PO HS 04/10/17 Reported 1/2 OF A 50 MG TABLET Spiriva Handihaler (Tiotropium Minden) 30 Puff/540 Mcg Aerp 1 Cap INH DAILY 04/10/17 Reported Zanaflex (Tizanidine HCl) 4 Mg Cap 4 Mg PO HS 04/10/17 Reported Zantac (Ranitidine HCl) 150 Mg Tab 300 Mg PO HS PRN 04/10/17 Reported TWO 150 MG TABLETS Requip (Ropinirole HCl) Unknown Strength Tab 1 Tab PO TID 04/10/17 Reported Pyridoxine Hcl 50 Mg Tab 50 Mg PO DAILY 04/10/17 Reported Pramipexole Dihydrochlori (Pramipexole Dihydrochloride) 1 Mg Tab 3.5 Tab PO DAILY 04/10/17 Reported 3.5 MG DAILY Protonix (Pantoprazole Sodium) 40 Mg Tab 40 Mg PO DAILY 04/10/17 Reported Creon (Pancrelipase (Lipase-Protease-) 1 Cap Cap 24,000 Units PO QID 04/10/17 Reported WITH EACH MEAL AND SNACK Red Devil-3 (Fish Oil) 1 Ea Cap 2 Cap PO DAILY 04/10/17 Reported Mirtazapine 15 Mg Tab 15 Mg PO HS 04/10/17 Reported Losartan Potassium 25 Mg Tab 25 Mg PO DAILY 04/10/17 Reported Levothyroxine Sodium 200 Mcg Tab 200 Mcg PO DAILY 04/10/17 Reported Hizentra (Immune Globulin (Human) Subcut) 2 Gm/10 Ml Inj 12 Gm SQ Q7DAYS 04/10/17 Reported Plaquenil (Hydroxychloroquine Sulfate) 200 Mg Tab 400 Mg PO DAILY 04/10/17 Reported WITH FOOD OR MILK Spironolactone/Hydrochlor 25-25 mg (HCTZ/Spironolactone) 1 Ea Tab 2 Tab PO DAILY 04/10/17 Reported Advair Diskus 250/50 60 Dose (Fluticasone Prop/Salmeterol) 1 Ea Aerp 1 Puff INH BID 04/10/17 Reported Flonase Allergy Relief (Fluticasone Propionate (Nasal)) 50 Mcg/Act Spr 2 Sprays RUEL DAILY 04/10/17 Reported Lexapro (Escitalopram Oxalate) 20 Mg Tab 20 Mg PO DAILY 04/10/17 Reported Dexilant (Dexlansoprazole) 60 Mg Cap 60 Mg PO UD 04/10/17 Reported Prolia (Denosumab) 60 Mg/Ml Mabel 60 Mg SQ [id number] 04/10/17 Reported Restasis (Cyclosporine (Ophth)) 0.05 % Emu 1 Drop OP BID 04/10/17 Reported Klonopin (Clonazepam) 2 Mg Tab 2 Mg PO QPM 04/10/17 Reported Klonopin (Clonazepam) 2 Mg Tab 1 Mg PO AMPM 04/10/17 Reported 1/2 OF A 2 MG TABLET IN AM AND AT NOON Glucosamine Chondroitin (Uikqsegyqww-Tdpzpkdnpej-Edy C-) 1 Cap Cap 1 Cap PO DAILY 04/10/17 Reported Wellbutrin Xl (Bupropion Hcl) 150 Mg Tab 150 Mg PO DAILY 04/10/17 Reported Lipitor (Atorvastatin Calcium) 10 Mg Tab 10 Mg PO HS 04/10/17 Reported Aspirin Ec (Aspirin) 325 Mg Tab 325 Mg PO DAILY 04/10/17 Reported Proventil 0.083% 2.5MG/3ML (Albuterol Sulf) 2.5 Mg/3 Ml Nebu 2.5 Mg INH Q6 PRN 04/10/17 Reported Proair Respiclick (Albuterol Sulfate) 108 Mcg/Act Aer 2 Puffs INH QID PRN 04/10/17 Reported Cymbalta (Duloxetine HCl) 20 Mg Cap 20 Mg PO DAILY 04/10/17 Reported Abilify (Aripiprazole) 20 Mg Tab 20 Mg PO DAILY 04/10/17 Reported Physical Physical Exam Vital Signs: Date Time Temp Pulse Resp B/P (MAP) Pulse Ox O2 Delivery O2 Flow Rate FiO2 04/10/17 16:16 79 04/10/17 15:45 82 25 04/10/17 15:31 154/69 04/10/17 15:15 24 04/10/17 15:04 74 20 146/80 96 Room Air 04/10/17 14:45 74 22 93 04/10/17 14:34 146/80 04/10/17 14:10 74 92 04/10/17 13:40 70 94 04/10/17 13:22 147/81 04/10/17 13:10 73 17 04/10/17 12:40 65 23 94 04/10/17 12:35 80 15 138/60 96 04/10/17 12:05 75 04/10/17 12:05 75 16 04/10/17 10:30 36.6 73 17 125/78 98 Room Air General Appearance: WELL-APPEARING, WD/WN, NO APPARENT DISTRESS Head: NORMOCEPHALIC, ATRAUMATIC Eyes: PERRLA, EOMI Neck: NORMAL RANGE OF MOTION, TRACHEA MIDLINE Respiratory: BREATH SOUNDS NORMAL, CLEAR TO AUSCULTATION, CLEAR TO PERCUSSION Cardiovasular: REGULAR RATE/RHYTHM, NORMAL S1S2 Abdomen: NON TENDER, NORMAL BOWEL SOUNDS, NO REBOUND Upper Extremities: NO EDEMA, NO DEFORMITY, NORMAL ROM Lower Extremities: NO EDEMA, NO DEFORMITY, NORMAL ROM Neuro: ALERT, ORIENTED x 3, NORMAL MOTOR EXAM, NORMAL SENSATION, other (the physical baseline tremor) Psychiatric: NORMAL AFFECT, NO SUICIDAL IDEATION, CONTRACTS FOR SAFETY Diagnostics Labs Results Past 24 Hours Test 04/10/17 11:30 04/10/17 13:15 Range/Units White Blood Count 4.02 4.8-10.8 K/uL Red Blood Count 4.45 4.2-5.4 M/uL Hemoglobin 14.2 12.0-16.0 g/dL Hematocrit 41.4 37-47 % Mean Corpuscular Volume 93.0 80-100 fL Mean Corpuscular Hemoglobin 31.9 25-34 pg Mean Corpuscular Hemoglobin Concent 34.3 32-36 g/dl Platelet Count 266 130-400 K/uL Mean Platelet Volume 9.5 7.4-10.4 fL Neutrophils (%) (Auto) 67.2 % Lymphocytes (%) (Auto) 18.7 % Monocytes (%) (Auto) 10.7 % Eosinophils (%) (Auto) 2.7 % Basophils (%) (Auto) 0.5 % Neutrophils # (Auto) 2.70 1.4-6.5 K/uL Lymphocytes # (Auto) 0.75 1.2-3.4 K/uL Monocytes # (Auto) 0.43 0.11-0.59 K/uL Eosinophils # (Auto) 0.11 0-0.5 K/uL Basophils # (Auto) 0.02 0-0.2 K/uL RDW Standard Deviation 45.9 36.4-46.3 fL RDW Coefficient of Variation 13.5 11.5-14.5 % Immature Granulocyte % (Auto) 0.2 % Immature Granulocyte # (Auto) 0.01 0.00-0.02 K/uL Sodium Level 132 136-145 mmol/L Potassium Level 3.7 3.5-5.1 mmol/L Chloride Level 98 98-107 mmol/L Carbon Dioxide Level 31 21-32 mmol/L Anion Gap 3.0 3-11 mmol/L Blood Urea Nitrogen 12 7-18 mg/dl Creatinine 0.92 0.60-1.20 mg/dl Est Creatinine Clear Calc Drug Dose 54.3 ml/min Estimated GFR () 74.7 Estimated GFR (Non- 64.4 BUN/Creatinine Ratio 13.4 10-20 Random Glucose 86 70-99 mg/dl Calcium Level 9.1 8.5-10.1 mg/dl Phosphorus Level 2.7 2.5-4.9 mg/dl Magnesium Level 2.1 1.8-2.4 mg/dl Troponin I < 0.015 0-0.045 ng/ml Urine Color YELLOW Urine Appearance CLEAR CLEAR Urine pH 7.5 4.5-7.5 Urine Specific Nolan 1.020 1.000-1.030 Urine Protein NEG NEG Urine Glucose (UA) NEG NEG Urine Ketones NEG NEG Urine Occult Blood NEG NEG Urine Nitrite NEG NEG Urine Bilirubin NEG NEG Urine Urobilinogen NEG NEG Urine Leukocyte Esterase NEG NEG Diagnostic Radiology Normal head CT and CTA of major vessels of the brain Radiology Interpretation: CXR NORMAL EKG Interpretation: NORMAL EKG Impression Assessment and Plan 66-year-old female with transient neurological changes on the contralateral side to her deep brain simulator is With complete resolution of her symptoms, negative imaging studies that we can perform here given her implantable device, it is reasonable to have her return to home continue to take her antiplatelet medication and follow-up with Dr. Dowell her typical neurologist. She states she is also going to contact the surgeon plan at the [facility] and she's had considerations for an MRI to be done in the past's Her chronic medical problems which include asthma thyroiditis and hypothyroidism depression and anxiety lupus hypogammaglobulinemia are stable and she'll maintain her multiple medications regarding these issues. Dr. Dowell's partner Dr. Perez was contacted prior to her being released from the ER to convey message to Dr. Dowell staff to phone the patient April 11 for follow- up on her condition. I discussed the case with Dr. gee is agreeable to discharge from the emergency department
[2017-04-10 17:03] VITALS: BP 117/77; PULSE 75; O2SAT 94
== END 2017-04-10 17:05 | disposition home or self-care (01) ==
LOC: C.EDB 10:10 → C.EDC 17:05
DX: R20.2 Paresthesia of skin (principal); Z86.73 Personal history of transient ischemic attack (TIA), and cerebral infarction without residual deficits; M62.81 Muscle weakness (generalized); J45.909 Unspecified asthma, uncomplicated; I10 Essential (primary) hypertension; E03.9 Hypothyroidism, unspecified; M81.0 Age-related osteoporosis without current pathological fracture; F32.9 Major depressive disorder, single episode, unspecified; Z79.82 Long term (current) use of aspirin; E06.9 Thyroiditis, unspecified; Z79.4 Long term (current) use of insulin; Z79.899 Other long term (current) drug therapy

== ENCOUNTER → 2017-04-17 | Outpatient (CLI) | payer OTHER ==
[~2017-04-17] MED LIST changes: +ADVIN25/60 INH; +ALBINS/ INH; +ALBU18002 INH; +ASPI325T39 PO; -ASPI325T45 PO; +ATOR10TA88 PO; +BUPRTAB PO; -BUPRTAB51 PO; -CALC0.2510 PO; -CHOL20009 PO; -CYCL0.05 OPB; +CYCL0.052 OP; +CZR25 PO; +DEXL60CA4 PO; +DSY50 PO; +DULO-24 PO; -FLUT0.0529; +FLUT0.15 NAE; +GLUC1CAP35 PO; -GLUCPOW41 PO; -IMMU4INJ SQ; -IPRASOL4 INH; -LACTCAP3 PO; -LEVO200T PO; +LEVO200T6 PO; -LOSA1TAB38 PO; -METH1TAB81 PO; +MIRT15TA53 PO; -MIRT45TA PO; -MONT1TAB3 PO; -OMEG-112 PO; +OMEG10007 PO; -PANT1TAB48 PO; +PANT40TA PO; -POTA1TAB PO; +PRAM1TAB6 PO; +PYRI50TA12 PO; -RANI300T2 PO; +ROPI1TAB PO; -ROPI8TAB PO; -SENNTAB23 PO; +SPIR1TAB72 PO; +SPRIN/30 INH; -TIOTCAP INH; +TIZA4CAP PO; -VNTHFA/IN INH; +ZNTT/150 PO; +[UNRECOGNIZED DRUG - CODE] SQ
--- NOTE | 2017-05-01 14:33 | PULMONARY FUNCTION TEST ---
Pre-bronchodilator spirometry is well within normal limits. There was no significant response to bronchodilator, but this should not preclude a therapeutic trial if clinically warranted. Lung volumes and diffusion capacity were well within normal limits. Clinical correlation is needed.
== END | disposition home or self-care (01) ==
LOC: C.RC 12:36
PROVIDERS: ATTEND Student in an Organized Health Care Education/Training Program
DX: R05 Cough (principal)

== ENCOUNTER → 2017-05-05 | Outpatient (CLI) | payer OTHER ==
[2017-05-05 09:54] LABS: URINE APPEARANCE CLEAR (CLEAR); URINE BILIRUBIN NEG (NEG); URINE COLOR YELLOW; URINE NITRITE NEG (NEG); URINE PH 6.5 (4.5-7.5); URINE SPECIFIC GRAVITY 1.017 (1.000-1.030); UROBILINOGEN NEG (NEG)
[2017-05-05 10:00] LABS: MANUAL MICROSCOPIC REQUIRED? NO; REVIEW REQ? NO
[2017-05-05 10:13] LABS: BLOOD UREA NITROGEN 18 mg/dl (7-18); BUN/CREATININE RATIO 18.3 (10-20); CARBON DIOXIDE 33 mmol/L (21-32); CHLORIDE 105 mmol/L (98-107); CREATININE 0.97 mg/dl (0.60-1.20); GLUCOSE 79 mg/dl (70-99); PHOSPHORUS 3.9 mg/dl (2.5-4.9); POTASSIUM 3.8 mmol/L (3.5-5.1); SODIUM 141 mmol/L (136-145)
== END | disposition home or self-care (01) ==
LOC: C.LAB1850 07:45
PROVIDERS: ATTEND Internal Medicine Nephrology
DX: N18.3 Chronic kidney disease, stage 3 (moderate) (principal)

== ENCOUNTER → 2017-07-07 | Outpatient (CLI) | payer OTHER ==
[~2017-07-07] MED LIST changes: +ATOR10TA82 PO; -ATOR10TA88 PO
== END | disposition home or self-care (01) ==
LOC: C.LAB1850 13:27
PROVIDERS: ATTEND Internal Medicine Pulmonary Disease
DX: J45.909 Unspecified asthma, uncomplicated (principal)

== ENCOUNTER → 2017-07-31 | Outpatient (CLI) | payer OTHER ==
[~2017-07-31] MED LIST changes: +CEPH500C2 PO
--- NOTE | 2017-07-31 10:06 | DIAGNOSTIC IMAGING REPORT ---
SACRUM COCCYX MIN 2 VIEWS CLINICAL HISTORY: FALL trauma. Pain. COMPARISON STUDY: None FINDINGS: Nondisplaced cortical fracture sacrococcygeal junction. Sacral foramina are symmetric. Sacroiliac joints are unremarkable. IMPRESSION: Nondisplaced cortical fracture sacrococcygeal junction. The above report was generated using voice recognition software. It may contain grammatical, syntax or spelling errors. Electronically signed by: Gamal Toledo M.D. 07/31/2017 10:05 AM Dictated Date/Time: 07/31/2017 10:04 AM
--- NOTE | 2017-07-31 10:07 | DIAGNOSTIC IMAGING REPORT ---
L WRIST MIN 3 VIEWS ROUTINE CLINICAL HISTORY: Left wrist pain status post trauma COMPARISON: None. DISCUSSION: There is a corticated ossicle adjacent the ulnar styloid. This is felt to be old. No acute fractures or dislocations are visualized. IMPRESSION: No acute fractures or dislocations identified. Electronically signed by: Conrad Fierro M.D. 07/31/2017 10:05 AM Dictated Date/Time: 07/31/2017 10:05 AM
== END | disposition home or self-care (01) ==
LOC: C.RAD1850 09:42
PROVIDERS: ATTEND Family Medicine
DX: S32.10XA Unspecified fracture of sacrum, initial encounter for closed fracture (principal); W19.XXXA Unspecified fall, initial encounter

== ENCOUNTER → 2017-08-08 | Day surgery (SDC) | payer OTHER ==
[2017-07-25 11:36] VITALS: Ht 152.4 cm; Wt 75.0 kg
[~2017-08-08] VITALS: Ht 152.4 cm; Wt 75.0 kg
[~2017-08-08] MED LIST changes: +BUPIVACAINE 0.25% 2.5MG/ML PF 10 ML VIAL ONE; +IOPAMIDOL INJ 61% 15 ML VIAL ONE; +LIDOCAINE HCL 1% MPF 5 ML VIAL ONE; -PYRI50TA12 PO; +PYRI50TA13 PO
[2017-08-08 15:05] VITALS: TEMP 36.7
--- NOTE | 2017-08-08 15:09 | Discharge Instructions ---
Discharge Instructions Date of Service Aug 08, 2017. Visit Reason for Visit: Sacroiliitis Discharge Discharge Diagnosis / Problem: low back pain Discharge Goals Goal(s): Decrease discomfort, Improve function Medications Stopped Medications Name(s): aspirin stopped 08-04-17 Activity Recommendations Activity Limitations: resume your previous activity Anesthesia . Post Anesthesia Instructions: If you have had General Anesthesia or IV Sedation: * Do not drive today. * Resume driving when surgeon permits. * Do not make important decisions or sign legal documents today. * Call surgeon for: 1. Temperature elevations greater than 101 degrees F. 2. Uncontrollable pain. 3. Excessive bleeding. 4. Persistent nausea and vomiting. 5. Medication intolerance (nausea, vomiting or rash). * For nausea and vomiting use only clear liquids such as: tea, soda, bouillon until nausea subsides, then gradually increase diet as tolerated. * If you have any concerns or questions, call your surgeon's office. If physician is unavailable and it is an emergency, call 911 or go to the nearest emergency room. . Diet Recommendations Recommended Home Diet: resume previous diet Procedures Procedures Performed: Bilateral Sacroiliac Joint Injection Pending Studies Studies pending at discharge: no Medical Emergencies . Who to Call and When: Medical Emergencies: If at any time you feel your situation is an emergency, please call 911 immediately. . Non-Emergent Contact Non-Emergency issues call your: Specialist . . "Provider Documentation" section prepared by Roney Pelayo. .
[2017-08-08 15:12] VITALS: BP 159/84; PULSE 78; O2SAT 95
--- NOTE | 2017-08-08 15:33 | OPERATIVE REPORT ---
DATE OF OPERATION: 08/08/2017 PREOPERATIVE DIAGNOSIS: Bilateral sacroiliitis. POSTOPERATIVE DIAGNOSIS: Same. PROCEDURE: Bilateral sacroiliac joint injections under fluoroscopic guidance. INDICATIONS: The patient is a 67-year-old white female, who returns for SI joint injections. She has received them with great results 6 months ago. She has an underlying inflammatory arthritis and she gets relief with sacroiliac joint injections. PHYSICAL EXAMINATION: Pleasant female seated comfortably. She has point tenderness to palpation of the SI joints, worse with extension and positive provocative maneuvers of the SI joints. She has normal motor and sensory exam. No focal weakness. Negative seated straight leg raises. CONSENT: Verbal and written consent was obtained from the patient. Risks and benefits were reviewed. Risks include, but are not limited to abscess and allergic reaction. The patient wishes to proceed. DESCRIPTION OF PROCEDURE: The patient was taken back into the special procedures room of [facility]. She was maintained in a prone position. Backside was cleansed with Betadine x3 and a dry sterile dressing was applied. Fluoroscope was used to identify the left SI joint and the overlying skin was anesthetized with 2.5 mL of lidocaine 1% with a 25-gauge 1-1/2 inch needle. A 25-gauge 3-1/2 inch needle was then directed into the joint. Isovue-300 contrast 0.25 mL or less confirmed its presence intraarticularly. She then underwent injection after negative aspiration of 40 mg Depo-Medrol and 1.5 mL of bupivacaine 0.25%. Then, the right SI joint was then fluoroscopically identified. Overlying skin anesthetized with 2.5 mL of lidocaine 1% with a 25-gauge 1-1/2 inch needle and a 25-gauge 3-1/2 inch needle was then directed under fluoroscopic guidance into the joint. Isovue-300 contrast 0.25 mL or less was injected in which showed intraarticular placement and nice spread. She then underwent injection after negative aspiration of 40 mg of Depo-Medrol and 1.5 mL of bupivacaine 0.25%. DISPOSITION: 1. The patient was taken out into the discharge recovery area, where she will be discharged home once discharge criteria have been met. 2. Follow up in the [facility] office in 2-4 weeks. I attest to the content of the Intraoperative Record and any orders documented therein. Any exception s are noted below.
== END | disposition home or self-care (01) ==
LOC: X.SURG 13:35
PROVIDERS: ATTEND Physical Medicine & Rehabilitation
DX: M46.1 Sacroiliitis, not elsewhere classified (principal)

== ENCOUNTER → 2017-09-12 | Outpatient (CLI) | payer OTHER ==
[~2017-09-12] MED LIST changes: -BUPIVACAINE 0.25% 2.5MG/ML PF 10 ML VIAL ONE; -CEPH500C2 PO; -IOPAMIDOL INJ 61% 15 ML VIAL ONE; -LIDOCAINE HCL 1% MPF 5 ML VIAL ONE
--- NOTE | 2017-09-15 07:45 | MAMMOGRAPHY REPORT ---
BILATERAL DIGITAL SCREENING MAMMOGRAM TOMOSYNTHESIS WITH CAD: 09/12/2017 CLINICAL HISTORY: Routine screening. Patient has no complaints. TECHNIQUE: Breast tomosynthesis in addition to standard 2D mammography was performed. Current study was also evaluated with a Computer Aided Detection (CAD) system. COMPARISON: Comparison is made to exams dated: 07/24/2016 ultrasound, 07/07/2015 mammogram, 4 ultrasound, 05/20/2014 mammogram, 07/19/2013 mammogram, and 07/24/2016 mammogram - [facility]. BREAST COMPOSITION: The tissue of both breasts is almost entirely fatty. FINDINGS: No suspicious masses, calcifications, or areas of architectural distortion are noted in ei ther breast. There has been no significant interval change compared to prior exams. Scattered bilater al benign-appearing calcifications are not significantly changed. A neurostimulator overlies and obs cures portions of the left superior breast on the MLO view. IMPRESSION: ACR BI-RADS CATEGORY 2: BENIGN There is no mammographic evidence of malignancy. A 1 year screening mammogram is recommended. The pa tient will receive written notification of the results. Approximately 10% of breast cancers are not detected with mammography. A negative mammographic report should not delay biopsy if a clinically suggestive mass is present. Janet Bailey M.D. ah/:09/12/2017 15:45:00 Roto Mixer Operator: Savanna NG(R)(M), [facility] letter sent: Normal 1/2 BI-RADS Code: ACR BI-RADS Category 2: Benign
== END | disposition home or self-care (01) ==
LOC: C.MAMM 14:21
PROVIDERS: ATTEND Family Medicine
DX: Z12.31 Encounter for screening mammogram for malignant neoplasm of breast (principal)

== ENCOUNTER → 2017-09-25 | Outpatient (CLI) | payer OTHER ==
--- NOTE | 2017-09-25 14:16 | DIAGNOSTIC IMAGING REPORT ---
KUB CLINICAL HISTORY: 67 years-old Female presenting with FREQUENCY OF MICTURITION. TECHNIQUE: Single supine view of the abdomen was obtained. COMPARISON: CT from 08/04/2015. FINDINGS: Cholecystectomy clips noted. Mild stool burden. Nonobstructive bowel gas pattern. No gross pneumoperitoneum. Allowing for bowel gas and stool, no calcifications to suggest nephrolithiasis. Calcification projecting over the right lower quadrant possibly phlebolith within the right gonadal vein. Left pelvic phleboliths. Osseous structures normal. IMPRESSION: 1. No acute intra-abdominal pathology. No radiographic evidence of nephrolithiasis. Electronically signed by: Daryl Curtis M.D. 09/25/2017 2:14 PM Dictated Date/Time: 09/25/2017 2:07 PM
== END | disposition home or self-care (01) ==
LOC: C.RAD1850 13:40
PROVIDERS: ATTEND Family Medicine
DX: R35.0 Frequency of micturition (principal)

== ENCOUNTER → 2017-11-14 | Outpatient (CLI) | payer OTHER ==
[~2017-11-14] MED LIST changes: +PRAM1TAB10 PO; -PRAM1TAB6 PO; +RANI150T85 PO; -ZNTT/150 PO
--- NOTE | 2017-11-14 19:05 | DIAGNOSTIC IMAGING REPORT ---
R HAND MIN 3 VIEWS ROUTINE CLINICAL HISTORY: 67 years-old Female presenting with UNSPECIFIED INJURY OF UNSPECIFIED WRIST/HAND/FINGE. TECHNIQUE: Frontal, oblique, lateral views of the right hand were obtained. COMPARISON: None. FINDINGS: Osteophytosis noted at the trapezium-first metatarsal articulation as well as the interphalangeal articulation of the first finger. Mild osteophytosis also noted at the proximal and distal interphalangeal joints of the second and third fingers. Overall joint spaces preserved. No acute fracture or malalignment. IMPRESSION: 1. No acute or osseous injury. 2. Degenerative changes at the first carpometacarpal articulation, interphalangeal joint of the first finger, and interphalangeal joints of the second and third fingers. This is characteristic of osteoarthritis. Electronically signed by: Daryl Curtis M.D. 11/14/2017 7:03 PM Dictated Date/Time: 11/14/2017 7:01 PM
== END | disposition home or self-care (01) ==
LOC: C.RAD 18:35
PROVIDERS: ATTEND Family Medicine
DX: S69.90XA Unspecified injury of unspecified wrist, hand and finger(s), initial encounter (principal); X58.XXXA Exposure to other specified factors, initial encounter

== ENCOUNTER → 2017-12-12 | Outpatient (CLI) | payer OTHER ==
[~2017-12-12] MED LIST changes: +CALC500C70 PO; +DOCU100C31 PO; +LUTE20CA PO; +MONT1TAB5 PO; +MULT-160 PO
--- NOTE | 2017-12-12 16:01 | DIAGNOSTIC IMAGING REPORT ---
R SHOULDER MIN 2 VIEWS ROUTINE CLINICAL HISTORY: SHOULDER PAIN pain COMPARISON: None. DISCUSSION: Findings consistent with an old impacted fracture of the humeral neck. Superimposed degenerative changes of the glenohumeral joint. The acromioclavicular joint is intact. There is no evidence for soft tissue swelling. IMPRESSION: Old somewhat impacted fracture right humeral neck with superimposed degenerative change. No acute process. The above report was generated using voice recognition software. It may contain grammatical, syntax or spelling errors. Electronically signed by: Gamal Toledo M.D. 12/12/2017 4:00 PM Dictated Date/Time: 12/12/2017 3:58 PM
== END | disposition home or self-care (01) ==
LOC: C.RAD1850 15:05
PROVIDERS: ATTEND Family Medicine
DX: M25.519 Pain in unspecified shoulder (principal)

== ENCOUNTER 2017-12-17 13:46 | Emergency (ER) | payer OTHER ==
[~2017-12-17] VITALS: Ht 152.4 cm; Wt 80.0 kg
[~2017-12-17 13:46] MED LIST changes: -CALC500C70 PO; -DOCU100C31 PO; -LUTE20CA PO; -MONT1TAB5 PO; -MULT-160 PO
[2017-12-17 13:48] VITALS: TEMP 36.6; Ht 152.4 cm; Wt 80.0 kg
[2017-12-17 14:10] VITALS: O2SAT 93
[2017-12-17] MEDS ORDERED: NITROGLYCERIN 2% OINTMENT 30GM TUBE EXT ONE (14:15)
--- NOTE | 2017-12-17 14:16 | EMERGENCY ROOM VISIT NOTE ---
History Report prepared by Danyelle: Katelyn Benoit Under the Supervision of: Dr. Ayana Macedo D.O. First contact with patient: 14:00 Chief Complaint: CHEST PAIN Stated Complaint: CHEST PAIN History of Present Illness The patient is a 67 year old female who presents to the Emergency Room with complaints of chest pain beginning an hour and a half prior to arrival. She describes the pain today was a pressure pain. She reports that her pain is in the center of her chest and that it radiates to the left of her chest, her back , and her jaw, but that it does not radiate to her arms. The patient states that she was not doing anything when the pain came on and reports that talking exacerbates her pain, but that laying down alleviates her pain. No other change in pain with exertion. She reports feeling nauseous and short of breath, but denies vomiting and swelling in her legs. No current SOB or nausea. The patient states that she did not take medication for her pain today. The patient states that last week she had pressure in her chest again and saw her family doctor. She states that her doctor did an ECG and said she had an infarct recently. The patient reports that she has had this pain in the past but she is not sure what caused it. She states that she has had a heart catheterization done but that it was more than 5 years ago. The patient states that she is scheduled for an echocardiogram on January 01. The patient states that she has a deep brain stimulator. The patient reports a family history of an irregular heart rhythm. No early onset CAD. She reports a history of COPD, depression, Lupus, and thyroid problems, but denies a personal history of hypertension and diabetes. She also reports a history of ulcers 30 years ago and states that today's pain feels different than her ulcers did. Pt denies headache, change in vision, fevers, vomiting, diarrhea, pain with urination, and melena. Source of History: patient Onset: hour and a half prior to arrival Position: chest Quality: pressure Modifying Factors (Worsening): other (talking ) Modifying Factors (Relieving): rest (laying down ) Associated Symptoms: + SOB, + nausea, + back pain, No vomiting Note: also denies: swelling in her legs Review of Systems See HPI for pertinent positives & negatives. A total of 10 systems reviewed and were otherwise negative. Past Medical & Surgical Medical Problems: (1) Asthma (2) Depression (3) HTN (hypertension) (4) Lupus (5) Osteoporosis (6) Stomach ulcer (7) TIA (transient ischemic attack) Surgical Problems: (1) H/O: hysterectomy (2) History of cholecystectomy (3) S/P deep brain stimulator placement (4) Status post breast reduction Family History Diabetes mellitus FHx: cancer Gallbladder disease Heart disease Hypertension Kidney disease Lung disease Social History Smoking Status: Never Smoker Drug Use: none Marital Status: Housing Status: lives with significant other Occupation Status: disabled Current/Historical Medications Scheduled Aripiprazole (Abilify), 20 MG PO DAILY Aspirin (Aspirin Ec), 325 MG PO DAILY Atorvastatin (Lipitor), 20 MG PO HS Calcium/Vitamin D (Os-Silvano 500 Plus D), 1 TAB PO DAILY Clonazepam (Klonopin), 1 MG PO AMPM Cyclosporine (Ophth) (Restasis), 1 DROP OP BID Denosumab (Prolia), 60 MG SQ [id number] Docusate Sodium (Docusate Sodium), 1 CAP PO BID Duloxetine HCl (Cymbalta), 40 MG PO DAILY Escitalopram Oxalate (Lexapro), 20 MG PO DAILY Fluticasone Prop/Salmeterol (Advair Diskus 250/50 60 Dose), 1 PUFF INH BID Fluticasone Propionate (Nasal) (Flonase Allergy Relief), 2 SPRAYS RUEL DAILY Hsuidmeswdw-Rmzxplbshlw-Eak C- (Glucosamine Chondroitin), 1 CAP PO DAILY Hydroxychloroquine Sulfate (Plaquenil), 400 MG PO DAILY Immune Globulin (Human) Subcut (Hizentra), 12 GM SQ Q7DAYS Levothyroxine Sodium (Levothyroxine Sodium), 200 MCG PO DAILY Losartan Potassium (Losartan Potassium), 50 MG PO DAILY Lutein (Lutein), 20 MG PO DAILY Montelukast Sodium (Montelukast Sodium), 1 TAB PO DAILY Multiple Vitamins W/ Calcium (One-A-Day Womens Formula), 1 TAB PO DAILY Pancrelipase (Lipase-Protease- (Creon), 24,000 UNITS PO QID Pantoprazole (Protonix), 40 MG PO DAILY Pramipexole Dihydrochloride (Pramipexole Dihydrochlori), 3.5 TAB PO DAILY Tiotropium Carbon (Spiriva Handihaler), 1 CAP INH DAILY Scheduled PRN Albuterol Sulf (Proventil 0.083% 2.5MG/3ML), 2.5 MG INH Q6 PRN for SOB/Wheezing Albuterol Sulfate (Proair Respiclick), 2 PUFFS INH QID PRN for Wheezing Ranitidine (Zantac), 300 MG PO HS PRN for ACID REFLUX Allergies Coded Allergies: Sumatriptan (Verified Allergy, Severe, ANAPHYLAXIS, 08/08/17) Amlodipine (Verified Allergy, Mild, HIVES, 08/08/17) Cyclobenzaprine (Verified Allergy, Unknown, VERTIGO, 08/08/17) Gabapentin (Verified Allergy, Unknown, STROKE SYMPTOMS, 08/08/17) Methocarbamol (Verified Allergy, Unknown, VERTIGO, 08/08/17) Codeine (Verified Adverse Reaction, Mild, GI SYMPTOMS, 08/08/17) HEADACHE AND STOMACH UPSET Physical Exam Vital Signs Date Time Temp Pulse Resp B/P (MAP) Pulse Ox O2 Delivery O2 Flow Rate FiO2 12/17/17 18:52 84 18 123/63 93 12/17/17 18:12 75 18 121/73 96 Room Air 12/17/17 18:07 84 12/17/17 17:01 82 18 119/67 97 Room Air 12/17/17 16:46 82 18 96 12/17/17 16:31 106/66 12/17/17 16:01 131/65 12/17/17 15:46 80 12/17/17 15:37 77 18 149/81 97 Room Air 12/17/17 15:36 149/81 12/17/17 15:01 126/84 12/17/17 14:46 74 23 94 12/17/17 14:11 95 Room Air 12/17/17 14:10 93 Nasal Cannula 12/17/17 14:10 75 18 143/71 97 Room Air 12/17/17 14:09 80 12/17/17 14:02 143/71 12/17/17 13:48 36.6 79 20 164/82 95 Room Air Physical Exam GENERAL: alert, well appearing, well nourished, no distress, non-toxic EYE EXAM: normal conjunctiva, PERRL and EOM's grossly intact OROPHARYNX: no exudate, no erythema, lips, buccal mucosa, and tongue normal and mucous membranes are moist NECK: supple, no nuchal rigidity, no adenopathy, non-tender LUNGS: Clear to auscultation. Normal chest wall mechanics, no w/r/r HEART: no murmurs, S1 normal and S2 normal, mild reproducible tenderness along the left sternal border ABDOMEN: abdomen soft, non-tender, normo-active bowel sounds, no masses, no rebound or guarding. BACK: Back is symmetrical on inspection and there is no deformity, no midline tenderness, no CVA tenderness. SKIN: no rashes and no bruising UPPER EXTREMITIES: upper extremities are grossly normal. FROM, nml pulses. LOWER EXTREMITIES: No pitting edema. FROM, nml pulses. NEURO EXAM: Normal sensorium, cranial nerves II-XII intact, normal speech, no weakness of arms, no weakness of legs. Speech was slow and deliberate. Medical Decision & Procedures ER Provider Diagnostic Interpretation: Radiology results have been interpreted by the radiologist and reviewed by me. CT ANGIO ABD/PELVIS COMBO CT DOSE: CLINICAL HISTORY: Pain, radiating to the back. Possible aortic dissection. TECHNIQUE: Unenhanced images were obtained through the abdomen and pelvis. The patient was then rescanned in a dynamic helical fashion during intravenous administration of 93 cc of Optiray 320. MIP imaging was performed. A dose lowering technique was utilized adhering to the principles of ALARA. COMPARISON STUDY: July 2015 FINDINGS: Unenhanced images reveal no evidence of acute aortic hematoma. No renal, ureteral, or bladder calculi are visualized. Postcontrast images demonstrate a stable right lobe hepatic hypodensity. The gallbladder surgically absent. No splenic masses are visualized the central phase study. No pancreatic masses are visualized. There are postsurgical changes of a right adrenalectomy. No renal masses are visualized this arterial phase study. There are no transition zones indicate bowel obstruction. There is no evidence of acute appendicitis. There is no evidence of acute diverticulitis. The uterus is surgically absent. There are gas bubbles within the right anterior abdominal wall, likely secondary to an injection site. There is no evidence of abdominal aortic aneurysm. There are separate origins of the common hepatic and splenic arteries. There is no evidence of hemodynamic significant stenosis. There is no celiac artery stenosis. There is no renal artery stenosis. Inferior mesenteric artery is patent. There is no evidence of unilaterally significant common or external iliac artery stenosis. IMPRESSION: 1. No evidence of abdominal aortic aneurysm or dissection. 2. No evidence of bowel obstruction. No evidence of free air 3. Normal appendix. No evidence of acute diverticulitis 4. Gas bubbles within the anterior abdominal wall, possibly secondary to an injection site. Clinical correlation in this regard is advocated Electronically signed by: Conrad Fierro M.D. 12/17/2017 3:45 PM Dictated Date/Time: 12/17/2017 3:[address] CHEST ANGIOGRAPHY WITHOUT A WITH CONTRAST CLINICAL HISTORY: Chest pain radiating to the back. Possible dissection COMPARISON STUDY: Chest x-ray dated 12/17/2017 FINDINGS: Unenhanced images were obtained through the thorax. There is a presumed neurostimulator within the left anterior chest wall with electrodes extending cephalad. There is no evidence of acute aortic hematoma. Postcontrast images reveal no thyroid masses. There are no pathologically enlarged axillary, mediastinal, or hilar lymph nodes. There is no evidence of thoracic aortic aneurysm. There are no intimal flaps to indicate acute aortic dissection. No thrombi are visualized within the central pulmonary arteries. There are no pleural effusions. There is no focal pulmonary consolidation. There are dependent atelectatic changes. IMPRESSION: 1. No evidence of thoracic aortic aneurysm or dissection 2. No evidence of focal pulmonary consolidation Electronically signed by: Conrad Fierro M.D. 12/17/2017 3:36 PM Dictated Date/Time: 12/17/2017 3:33 PM Laboratory Results 12/17/17 14:07 Red Blood Count 4.35, Mean Corpuscular Volume 95.9, Mean Corpuscular Hemoglobin 32.2, Mean Corpuscular Hemoglobin Concent 33.6, Mean Platelet Volume 9.5, Neutrophils (%) (Auto) 64.4, Lymphocytes (%) (Auto) 24.3, Monocytes (%) (Auto) 8.3, Eosinophils (%) (Auto) 2.2, Basophils (%) (Auto) 0.4, Neutrophils # (Auto) 3.17, Lymphocytes # (Auto) 1.20, Monocytes # (Auto) 0.41, Eosinophils # (Auto) 0.11, Basophils # (Auto) 0.02 12/17/17 14:07 Test 12/17/17 14:07 12/17/17 17:24 White Blood Count 4.93 K/uL (4.8-10.8) Red Blood Count 4.35 M/uL (4.2-5.4) Hemoglobin 14.0 g/dL (12.0-16.0) Hematocrit 41.7 % (37-47) Mean Corpuscular Volume 95.9 fL (80-100) Mean Corpuscular Hemoglobin 32.2 pg (25-34) Mean Corpuscular Hemoglobin Concent 33.6 g/dl (32-36) Platelet Count 236 K/uL (130-400) Mean Platelet Volume 9.5 fL (7.4-10.4) Neutrophils (%) (Auto) 64.4 % Lymphocytes (%) (Auto) 24.3 % Monocytes (%) (Auto) 8.3 % Eosinophils (%) (Auto) 2.2 % Basophils (%) (Auto) 0.4 % Neutrophils # (Auto) 3.17 K/uL (1.4-6.5) Lymphocytes # (Auto) 1.20 K/uL (1.2-3.4) Monocytes # (Auto) 0.41 K/uL (0.11-0.59) Eosinophils # (Auto) 0.11 K/uL (0-0.5) Basophils # (Auto) 0.02 K/uL (0-0.2) RDW Standard Deviation 48.3 fL (36.4-46.3) RDW Coefficient of Variation 13.7 % (11.5-14.5) Immature Granulocyte % (Auto) 0.4 % Immature Granulocyte # (Auto) 0.02 K/uL (0.00-0.02) Prothrombin Time 9.9 SECONDS (9.0-12.0) Prothromb Time International Ratio 0.9 (0.9-1.1) D-Dimer 2150 ug/L FEU (0-500) Anion Gap 3.0 mmol/L (3-11) Est Creatinine Clear Calc Drug Dose 51.4 ml/min Estimated GFR () 68.7 Estimated GFR (Non- 59.3 BUN/Creatinine Ratio 22.4 (10-20) Calcium Level 9.3 mg/dl (8.5-10.1) Magnesium Level 2.0 mg/dl (1.8-2.4) Total Bilirubin 0.4 mg/dl (0.2-1) Aspartate Amino Transf (AST/SGOT) 46 U/L (15-37) Alanine Aminotransferase (ALT/SGPT) 54 U/L (12-78) Alkaline Phosphatase 70 U/L (45-117) Pro-B-Type Natriuretic Peptide 36 pg/ml (0-900) Total Protein 7.5 gm/dl (6.4-8.2) Albumin 3.4 gm/dl (3.4-5.0) Globulin 4.1 gm/dl (2.5-4.0) Albumin/Globulin Ratio 0.8 (0.9-2) Thyroid Stimulating Hormone (TSH) 0.462 uIu/ml (0.300-4.500) Troponin I 0.016 ng/ml (0-0.045) Laboratory results per my review. Medications Administered Medications (Trade) Dose Ordered Sig/Heather Route Start Time Stop Time Status Last Admin Dose Admin Nitroglycerin (Nitroglycerin 2% Oint) 1 inch NOW ONCE EXT 12/17/17 14:15 12/17/17 14:16 DC 12/17/17 14:24 1 INCH ECG Per My Interpretation Indication: chest pain Rate (beats per minute): 80 Rhythm: sinus rhythm Findings: no acute ischemic change, other (left axis deviation, normal intervals ) ED Course 1403: The patient was evaluated in room A2. A complete history and physical exam was performed. 1415: Ordered Nitroglycerin 1 inch EXT. 1640: I checked on the patient and she is not having any pain. 1817: The patient has been ambulatory without any repeating symptoms. 1835: Upon reevaluation, the patient is feeling better. I discussed the findings and the treatment plan with the patient. She verbalizes agreement and understanding. She was discharged home. Medical Decision The patient is a 67 year old female who presents to the ED with complaints of chest pain. Differential diagnosis: Etiologies such as cardiac ischemia, aortic dissection, pulmonary embolism, pneumonia, pneumothorax, musculoskeletal, infections, pericarditis, myocarditis , esophageal rupture, gastrointestinal, as well as others were entertained. Heart score 3 Patient well-appearing here, description of symptoms not classic for ACS. Given history of lupus a d-dimer was added which is elevated. Given patient's description of radiation to the back as well as history of lupus, patient sent for CAT scan. CAT scan did not show any other acute pathology, and labs were negative. 2 troponins done 3 hours apart which were both negative. Discussed with patient her risk factors for ACS and keeping her appointment for the outpatient echo as is scheduled. Discussed and encouraged close follow-up with cardiology. Encouraged her can to continue taking her medications as prescribed. Discussed symptoms to watch and return for, she verbalized understanding was agreeable with plan. Patient's deliberate speech and tremor are chronic. Patient's DBS is for her essential tremor and her speech is a side effect of the DBS implantation. I do not suspect acute vascular etiology or PE. I do not suspect hypertensive urgency/emergency. Medication Reconcilliation Current Medication List: was personally reviewed by me Blood Pressure Screening Patient's blood pressure: Elevated blood pressure Blood pressure disposition: Referred to PCP Impression Primary Impression: Chest pain Scribe Attestation The scribe's documentation has been prepared under my direction and personally reviewed by me in its entirety. I confirm that the note above accurately reflects all work, treatment, procedures, and medical decision making performed by me. Departure Information Dispostion Home / Self-Care Referrals Alyse Iglesias M.D. (PCP) Forms Call Back Authorization, HOME CARE DOCUMENTATION FORM, IMPORTANT VISIT INFORMATION Patient Instructions My [facility] Additional Instructions Please continue your scheduled outpatient cardiology evaluation. Please continue regular medications as prescribed. If you have any recurrent episodes of chest pain, develop neck or back pain, pain radiating into the arms, dizziness, sweating, trouble breathing, nausea or vomiting, or you have any other new or concerning symptoms, please return to the ER immediately. Problem Qualifiers Primary Impression: Chest pain Chest pain type: unspecified Qualified Codes: R07.9 - Chest pain, unspecified
[2017-12-17 14:22] LABS: BASO % 0.4 %; BASO ABS # 0.02 K/uL (0-0.2); EOS % 2.2 %; EOS ABS # 0.11 K/uL (0-0.5); HEMATOCRIT 41.7 % (37-47); IG# 0.02 K/uL (0.00-0.02); LYMPH % 24.3 %; MEAN CELL VOLUME 95.9 fL (80-100); MEAN CORPUSCULAR HEMOGLOBIN 32.2 pg (25-34); MEAN CORPUSCULAR HGB CONC 33.6 g/dl (32-36); MEAN PLATELET VOLUME 9.5 fL (7.4-10.4); MONO % 8.3 %; MONO ABS # 0.41 K/uL (0.11-0.59); NEUT % 64.4 %; NEUT ABS # 3.17 K/uL (1.4-6.5); PLATELET COUNT 236 K/uL (130-400); RED CELL DISTRIBUTION WIDTH CV 13.7 % (11.5-14.5); RED CELL DISTRIBUTION WIDTH SD 48.3 fL (36.4-46.3); WHITE BLOOD COUNT 4.93 K/uL (4.8-10.8)
[2017-12-17 14:33] LABS: INR 0.9 (0.9-1.1)
[2017-12-17 14:44] LABS: ALBUMIN 3.4 gm/dl (3.4-5.0); CALCIUM 9.3 mg/dl (8.5-10.1); CREATININE 0.98 mg/dl (0.60-1.20); POTASSIUM 3.7 mmol/L (3.5-5.1)
[2017-12-17 14:55] LABS: TOTAL PROTEIN 7.5 gm/dl (6.4-8.2)
[2017-12-17] MEDS ORDERED: OPTIRAY 320 IV PRN (15:00)
[2017-12-17] MEDS ORDERED: DOCU100C31 PO (15:15)
[2017-12-17] MEDS ORDERED: MONT1TAB5 PO (15:15)
[2017-12-17] MEDS ORDERED: CALC500C70 PO (15:15)
[2017-12-17] MEDS ORDERED: LUTE20CA PO (15:15)
[2017-12-17] MEDS ORDERED: MULT-160 PO (15:15)
--- NOTE | 2017-12-17 15:38 | DIAGNOSTIC IMAGING REPORT ---
CT CHEST ANGIOGRAPHY WITHOUT A WITH CONTRAST CLINICAL HISTORY: Chest pain radiating to the back. Possible dissection COMPARISON STUDY: Chest x-ray dated 12/17/2017 FINDINGS: Unenhanced images were obtained through the thorax. There is a presumed neurostimulator within the left anterior chest wall with electrodes extending cephalad. There is no evidence of acute aortic hematoma. Postcontrast images reveal no thyroid masses. There are no pathologically enlarged axillary, mediastinal, or hilar lymph nodes. There is no evidence of thoracic aortic aneurysm. There are no intimal flaps to indicate acute aortic dissection. No thrombi are visualized within the central pulmonary arteries. There are no pleural effusions. There is no focal pulmonary consolidation. There are dependent atelectatic changes. IMPRESSION: 1. No evidence of thoracic aortic aneurysm or dissection 2. No evidence of focal pulmonary consolidation Electronically signed by: Conrad Fierro M.D. 12/17/2017 3:36 PM Dictated Date/Time: 12/17/2017 3:33 PM
--- NOTE | 2017-12-17 15:46 | DIAGNOSTIC IMAGING REPORT ---
CT ANGIO ABD/PELVIS COMBO CT DOSE: CLINICAL HISTORY: Pain, radiating to the back. Possible aortic dissection. TECHNIQUE: Unenhanced images were obtained through the abdomen and pelvis. The patient was then rescanned in a dynamic helical fashion during intravenous administration of 93 cc of Optiray 320. MIP imaging was performed. A dose lowering technique was utilized adhering to the principles of ALARA. COMPARISON STUDY: July 2015 FINDINGS: Unenhanced images reveal no evidence of acute aortic hematoma. No renal, ureteral, or bladder calculi are visualized. Postcontrast images demonstrate a stable right lobe hepatic hypodensity. The gallbladder surgically absent. No splenic masses are visualized the central phase study. No pancreatic masses are visualized. There are postsurgical changes of a right adrenalectomy. No renal masses are visualized this arterial phase study. There are no transition zones indicate bowel obstruction. There is no evidence of acute appendicitis. There is no evidence of acute diverticulitis. The uterus is surgically absent. There are gas bubbles within the right anterior abdominal wall, likely secondary to an injection site. There is no evidence of abdominal aortic aneurysm. There are separate origins of the common hepatic and splenic arteries. There is no evidence of hemodynamic significant stenosis. There is no celiac artery stenosis. There is no renal artery stenosis. Inferior mesenteric artery is patent. There is no evidence of unilaterally significant common or external iliac artery stenosis. IMPRESSION: 1. No evidence of abdominal aortic aneurysm or dissection. 2. No evidence of bowel obstruction. No evidence of free air 3. Normal appendix. No evidence of acute diverticulitis 4. Gas bubbles within the anterior abdominal wall, possibly secondary to an injection site. Clinical correlation in this regard is advocated Electronically signed by: Conrad Fierro M.D. 12/17/2017 3:45 PM Dictated Date/Time: 12/17/2017 3:39 PM
[2017-12-17 18:52] VITALS: BP 123/63; PULSE 84; O2SAT 93
--- NOTE | 2017-12-17 20:59 | DIAGNOSTIC IMAGING REPORT ---
CHEST ONE VIEW PORTABLE CLINICAL HISTORY: Chest pain. COMPARISON STUDY: Chest radiograph April 10, 2017. FINDINGS: A electronic stimulator device is noted. Lung volumes are normal. Lungs are clear. No pneumothorax or pleural effusion is noted. There is no evidence for pulmonary edema. Chronic deformity of the right humeral head is again noted. IMPRESSION: No acute cardiopulmonary findings. Electronically signed by: Dash Bassett M.D. 12/17/2017 8:57 PM Dictated Date/Time: 12/17/2017 8:56 PM
== END 2017-12-17 18:53 | disposition home or self-care (01) ==
LOC: C.EDB 13:47 → C.EDA 18:53
DX: R07.9 Chest pain, unspecified (principal); R06.02 Shortness of breath; R11.0 Nausea; J44.9 Chronic obstructive pulmonary disease, unspecified; I10 Essential (primary) hypertension; Z79.82 Long term (current) use of aspirin; Z79.899 Other long term (current) drug therapy; Z96.9 Presence of functional implant, unspecified; Z88.8 Allergy status to other drugs, medicaments and biological substances; Z88.6 Allergy status to analgesic agent; Z82.49 Family history of ischemic heart disease and other diseases of the circulatory system; Z83.6 Family history of other diseases of the respiratory system

== ENCOUNTER → 2018-03-13 | Outpatient (CLI) | payer OTHER ==
[~2018-03-13] MED LIST changes: +ASPI81TA28 PO; +AZEL0.056 NAE; -BUPRTAB PO; +CALC500C70 PO; +CLON2TAB10 PO; -CLON2TAB3 PO; +CLON2TAB9 PO; -DEXL60CA4 PO; +DOCU100C31 PO; -DSY50 PO; +LEVO175T PO; +LUTE20CA PO; -MIRT15TA53 PO; +MONT1TAB5 PO; +MULT-160 PO; -OMEG10007 PO; -PYRI50TA13 PO; -ROPI1TAB PO; -SPIR1TAB72 PO; -TIZA4CAP PO
--- NOTE | 2018-03-13 14:21 | DIAGNOSTIC IMAGING REPORT ---
THYROID ULTRASOUND CLINICAL HISTORY: Enlarged thyroid. COMPARISON STUDY: Thyroid ultrasound July 13, 2015. TECHNIQUE: Sonography of the thyroid gland was performed. FINDINGS: Right thyroid lobe measures 3.8 x 1.2 x 1.5 cm and the left lobe measures 3.6 x 1 x 1.2 cm. A peripherally calcified 6 mm left lobe thyroid nodule is unchanged since exam of July 13, 2015. Note is made of a possible 1 cm isoechoic right lobe nodule which was not visualized on previous exam. This may reflect normal thyroid parenchyma and does not meet criteria for biopsy. IMPRESSION: Normal size thyroid gland which contains a few subcentimeter thyroid nodules which do not meet criteria for biopsy. Electronically signed by: Dash Bassett M.D. 03/13/2018 2:20 PM Dictated Date/Time: 03/13/2018 2:17 PM
== END | disposition home or self-care (01) ==
LOC: C.ULTR 13:20
PROVIDERS: ATTEND Physician Assistant
DX: E04.9 Nontoxic goiter, unspecified (principal)

== ENCOUNTER 2018-04-03 05:10 | Day surgery (SDC) | payer OTHER ==
[2018-03-20 13:43] VITALS: BMI 33.0
--- NOTE | 2018-03-24 15:55 | PAT Medication Instructions ---
Service Date Mar 24, 2018. Current Home Medication List Albuterol Sulf (Proventil 0.083% 2.5MG/3ML), 2.5 MG INH Q6 PRN for SOB/Wheezing Albuterol Sulfate (Proair Respiclick), 2 PUFFS INH QID PRN for Wheezing Aripiprazole (Abilify), 10 MG PO HS Aspirin (Aspirin Ec), 81 MG PO QAM Azelastine HCl (Azelastine HCl), 1 SPRAY RUEL UD Calcium/Vitamin D (Os-Silvano 500 Plus D), 1 TAB PO QAM Clonazepam (Klonopin), 1 MG PO AMPM Clonazepam (Klonopin), 2 MG PO HS Cyclosporine (Ophth) (Restasis), 1 DROP OP BID Denosumab (Prolia), 60 MG SQ [id number] Docusate Sodium (Docusate Sodium), 1 CAP PO QAM Duloxetine HCl (Cymbalta), 40 MG PO QAM Escitalopram Oxalate (Lexapro), 20 MG PO HS Fluticasone Prop/Salmeterol (Advair Diskus 250/50 60 Dose), 1 PUFF INH BID Yfxyrbajsno-Ueoaztvpwdb-Ueg C- (Glucosamine Chondroitin), 1 CAP PO QAM Hydroxychloroquine Sulfate (Plaquenil), 400 MG PO QAM Immune Globulin (Human) Subcut (Hizentra), 12 GM SQ Q7DAYS Levothyroxine Sodium (Synthroid), 175 MCG PO QAM Losartan Potassium (Losartan Potassium), 50 MG PO HS Lutein (Lutein), 20 MG PO QAM Montelukast Sodium (Montelukast Sodium), 1 TAB PO HS Multiple Vitamins W/ Calcium (One-A-Day Womens Formula), 1 TAB PO QAM Pancrelipase (Lipase-Protease- (Creon), 24,000 UNITS PO QAM Pantoprazole (Protonix), 40 MG PO QAM Pramipexole Dihydrochloride (Pramipexole Dihydrochlori), 3.5 TAB PO QAM Ranitidine (Zantac), 300 MG PO HS PRN for ACID REFLUX Tiotropium [place] (Spiriva Handihaler), 1 CAP INH QAM Medication Instructions For Your Scheduled Surgery - Check with surgeon and prescribing physician for instructions: Aspirin (Aspirin Ec), 81 MG PO QAM Hydroxychloroquine Sulfate (Plaquenil), 400 MG PO QAM Immune Globulin (Human) Subcut (Hizentra), 12 GM SQ Q7DAYS - Continue as directed: Denosumab (Prolia), 60 MG SQ [id number] - Hold the following medications starting 03/26/18: Xeaetkfhydh-Qgkijyhlaox-Zfh C- (Glucosamine Chondroitin), 1 CAP PO QAM Lutein (Lutein), 20 MG PO QAM - Hold the following medications the morning of surgery: Calcium/Vitamin D (Os-Silvano 500 Plus D), 1 TAB PO QAM Docusate Sodium (Docusate Sodium), 1 CAP PO QAM Multiple Vitamins W/ Calcium (One-A-Day Womens Formula), 1 TAB PO QAM Pancrelipase (Lipase-Protease- (Creon), 24,000 UNITS PO QAM Pramipexole Dihydrochloride (Pramipexole Dihydrochlori), 3.5 TAB PO QAM - Take the following medications the morning of surgery with a sip of water: Albuterol Sulf (Proventil 0.083% 2.5MG/3ML), 2.5 MG INH Q6 PRN for SOB/Wheezing (if needed) Albuterol Sulfate (Proair Respiclick), 2 PUFFS INH QID PRN for Wheezing (if needed) Clonazepam (Klonopin), 1 MG PO AMPM Azelastine HCl (Azelastine HCl), 1 SPRAY RUEL UD (if needed) Cyclosporine (Ophth) (Restasis), 1 DROP OP BID Duloxetine HCl (Cymbalta), 40 MG PO QAM Fluticasone Prop/Salmeterol (Advair Diskus 250/50 60 Dose), 1 PUFF INH BID Levothyroxine Sodium (Synthroid), 175 MCG PO QAM Pantoprazole (Protonix), 40 MG PO QAM Ranitidine (Zantac), 300 MG PO HS PRN for ACID REFLUX (if needed) Tiotropium [place] (Spiriva Handihaler), 1 CAP INH QAM - Take the following medications as scheduled the night before surgery: Albuterol Sulf (Proventil 0.083% 2.5MG/3ML), 2.5 MG INH Q6 PRN for SOB/Wheezing (if needed) Albuterol Sulfate (Proair Respiclick), 2 PUFFS INH QID PRN for Wheezing (if needed) Aripiprazole (Abilify), 10 MG PO HS Azelastine HCl (Azelastine HCl), 1 SPRAY RUEL UD (if needed) Clonazepam (Klonopin), 1 MG PO AMPM Clonazepam (Klonopin), 2 MG PO HS Cyclosporine (Ophth) (Restasis), 1 DROP OP BID Escitalopram Oxalate (Lexapro), 20 MG PO HS Fluticasone Prop/Salmeterol (Advair Diskus 250/50 60 Dose), 1 PUFF INH BID Losartan Potassium (Losartan Potassium), 50 MG PO HS Montelukast Sodium (Montelukast Sodium), 1 TAB PO HS Ranitidine (Zantac), 300 MG PO HS PRN for ACID REFLUX (if needed) If you have any questions please call us at [phone] or [phone] or [phone]
[2018-03-25 09:26] VITALS: BMI 34.0
[2018-03-25 10:43] LABS: BASO % 0.2 %; BASO ABS # 0.01 K/uL (0-0.2); EOS % 1.5 %; EOS ABS # 0.07 K/uL (0-0.5); HEMATOCRIT 40.6 % (37-47); HEMOGLOBIN 13.3 g/dL (12.0-16.0); IG# 0.01 K/uL (0.00-0.02); LYMPH % 22.3 %; LYMPH ABS # 1.05 K/uL (1.2-3.4); MEAN CELL VOLUME 96.2 fL (80-100); MEAN CORPUSCULAR HEMOGLOBIN 31.5 pg (25-34); MEAN CORPUSCULAR HGB CONC 32.8 g/dl (32-36); MEAN PLATELET VOLUME 10.1 fL (7.4-10.4); MONO % 13.2 %; MONO ABS # 0.62 K/uL (0.11-0.59); NEUT % 62.6 %; NEUT ABS # 2.95 K/uL (1.4-6.5); PLATELET COUNT 272 K/uL (130-400); RED CELL DISTRIBUTION WIDTH CV 14.3 % (11.5-14.5); WHITE BLOOD COUNT 4.71 K/uL (4.8-10.8)
[2018-03-25 10:49] LABS: CALCIUM 9.1 mg/dl (8.5-10.1); CREATININE 0.92 mg/dl (0.60-1.20); POTASSIUM 4.5 mmol/L (3.5-5.1)
--- NOTE | 2018-03-30 14:06 | History and Physical ---
History & Physical Date Mar 30, 2018. Chief Complaint sinusitis, drainage, hoarseness History of Present Illness The patient is a 67 year old female with complaints of chronic sinusitis and drainage causing loss of voice Past Medical/Surgical History Medical Problems: (1) Asthma (2) Depression (3) HTN (hypertension) (4) Lupus (5) Osteoporosis (6) Stomach ulcer (7) TIA (transient ischemic attack) Surgical Problems: (1) H/O: hysterectomy (2) History of cholecystectomy (3) S/P deep brain stimulator placement (4) Status post breast reduction Additional History Hepatic Disease: No Endocrine Disorder: Yes Kidney Disease: No Hypertension: No Heart Disease: No Bleeding Tendencies: No Infectious Diseases: No Allergies Coded Allergies: Sumatriptan (Verified Allergy, Severe, ANAPHYLAXIS, 03/20/18) Amlodipine (Verified Allergy, Mild, HIVES, 03/20/18) Cyclobenzaprine (Verified Allergy, Unknown, VERTIGO, 03/20/18) Gabapentin (Verified Allergy, Unknown, STROKE SYMPTOMS, 03/20/18) Methocarbamol (Verified Allergy, Unknown, VERTIGO, 03/20/18) Codeine (Verified Adverse Reaction, Mild, GI SYMPTOMS, 03/20/18) HEADACHE AND STOMACH UPSET Home Medications Scheduled Aripiprazole (Abilify), 10 MG PO HS Aspirin (Aspirin Ec), 81 MG PO QAM Azelastine HCl (Azelastine HCl), 1 SPRAY RUEL UD Calcium/Vitamin D (Os-Silvano 500 Plus D), 1 TAB PO QAM Clonazepam (Klonopin), 1 MG PO AMPM Clonazepam (Klonopin), 2 MG PO HS Cyclosporine (Ophth) (Restasis), 1 DROP OP BID Denosumab (Prolia), 60 MG SQ [id number] Docusate Sodium (Docusate Sodium), 1 CAP PO QAM Duloxetine HCl (Cymbalta), 40 MG PO QAM Escitalopram Oxalate (Lexapro), 20 MG PO HS Fluticasone Prop/Salmeterol (Advair Diskus 250/50 60 Dose), 1 PUFF INH BID Ivqnsvqfnqj-Yutorzyxdrl-Pwq C- (Glucosamine Chondroitin), 1 CAP PO QAM Hydroxychloroquine Sulfate (Plaquenil), 400 MG PO QAM Immune Globulin (Human) Subcut (Hizentra), 12 GM SQ [id number] Levothyroxine Sodium (Synthroid), 175 MCG PO QAM Losartan Potassium (Losartan Potassium), 50 MG PO HS Lutein (Lutein), 20 MG PO QAM Montelukast Sodium (Montelukast Sodium), 1 TAB PO HS Multiple Vitamins W/ Calcium (One-A-Day Womens Formula), 1 TAB PO QAM Pancrelipase (Lipase-Protease- (Creon), 24,000 UNITS PO QAM Pantoprazole (Protonix), 40 MG PO QAM Pramipexole Dihydrochloride (Pramipexole Dihydrochlori), 3.5 TAB PO QAM Tiotropium [place] (Spiriva Handihaler), 1 CAP INH QAM Scheduled PRN Albuterol Sulf (Proventil 0.083% 2.5MG/3ML), 2.5 MG INH Q6 PRN for SOB/Wheezing Albuterol Sulfate (Proair Respiclick), 2 PUFFS INH QID PRN for Wheezing Ranitidine (Zantac), 300 MG PO HS PRN for ACID REFLUX Physical Examination Skin: warm/dry, no rash Eyes: normal inspection, EOMI, sclerae normal ENT: normal ENT inspection, pharynx normal Head: normocephalic, atraumatic Neck: supple, no adenopathy, trachea midline Respiratory/Chest: lungs clear, normal breath sounds, no respiratory distress Cardiovascular: regular rate, rhythm, no edema, no murmur Abdomen / GI: normal bowel sounds, non tender Back: normal inspection Extremities: normal inspection, normal range of motion Neurologic/Psych: no motor/sensory deficits, alert, normal reflexes, oriented x 3 Diagnosis chronic sinusitis Plan of Treatment endoscopic sinus surgery
[~2018-04-03] VITALS: Ht 152.4 cm; Wt 78.1 kg
[~2018-04-03 05:10] MED LIST changes: -ASPI325T39 PO; -ATOR10TA82 PO; -FLUT0.15 NAE; -LEVO200T6 PO
[2018-04-03] MEDS ORDERED: ACET-1256 PO (05:44)
[2018-04-03 05:45] VITALS: BP 159/76; PULSE 69; TEMP 36.5; O2SAT 95; Ht 152.4 cm; Wt 78.1 kg
[2018-04-03] MEDS ORDERED: LACTATED RINGER'S 1000ML 1,000 ML IV SCH (06:00)
[2018-04-03] MEDS ORDERED: FENTANYL CITRATE INJ 50 MCG/1 ML 2 ML VIAL ONE ×2 (06:46)
[2018-04-03] MEDS ORDERED: MIDAZOLAM HCL 1 MG/ML 2ML VIAL ONE (06:46)
[2018-04-03] MEDS ORDERED: EpINEphrine INJ 1MG/ML AMP 1 MG/ML AMP ONE (06:53)
[2018-04-03] MEDS ORDERED: LIDO 2%/EPINEPHRINE 1:100000 20 ML VIAL ONE (06:53)
[2018-04-03] MEDS ORDERED: LIDOCAINE 4% INH SOLN 4 ML BTL ONE (06:53)
[2018-04-03] MEDS: BACITRACIN OINT 15 GM TUBE ONE ×2 (08:15→09:15)
[2018-04-03] MEDS: GELATIN SPONGE 12-7MM ONE ×2 (08:16→09:15)
[2018-04-03] MEDS ORDERED: LIDOCAINE HCL 2% 2 ML VIAL (20MG/ML) ONE (08:27)
[2018-04-03] MEDS ORDERED: PROPOFOL IV EMULSION 10 MG/ML 20 ML VIAL ONE ×2 (08:27)
[2018-04-03] MEDS ORDERED: EpHEDrine SULFATE INJ 50 MG/ML AMP ONE (08:27)
[2018-04-03] MEDS ORDERED: DEXAMETHASONE SOD INJ 4 MG/ML VIAL ONE (08:27)
[2018-04-03] MEDS ORDERED: CEFAZOLIN SOD 1 GM VIAL ONE (08:27)
[2018-04-03] MEDS ORDERED: ONDANSETRON INJ 2 MG/ML 2 ML VIAL ONE (08:27)
[2018-04-03] MEDS ORDERED: ATROPINE SULFATE 0.1 MG/ML 5ML SYR IV PRN (08:30)
[2018-04-03] MEDS ORDERED: FENTANYL CITRATE INJ 50 MCG/1 ML 2 ML VIAL IV PRN (08:30)
[2018-04-03] MEDS ORDERED: EpHEDrine SULFATE INJ 50 MG/ML AMP IV PRN (08:30)
[2018-04-03] MEDS ORDERED: ONDANSETRON INJ 2 MG/ML 2 ML VIAL IV PRN (08:30)
[2018-04-03] MEDS ORDERED: EpINEphrine HCL INJ 1 MG/ML 1ML SYRINGE ONE (08:58)
[2018-04-03] MEDS ORDERED: SODIUM CHLORIDE 0.9% 1000ML 1,000 ML IV SCH (09:28)
--- NOTE | 2018-04-03 09:29 | [facility] Post Operative Brief Note ---
Immediate Operative Summary Operative Date Apr 03, 2018. Pre-Operative Diagnosis Chronic Sinusitis Post-Operative Diagnosis Chronic Sinusitis Procedure(s) Performed Endoscopic Sinus Surgery, Bilateral Frontal and Maxillary, Ethmoidectomy, Sinusotomy Surgeon Dr. Haynes Director [employer] Surgeon(s) none Estimated Blood Loss 100cc Findings Consistent with Post-Op Diagnosis Specimens None per surgeon Drains None Anesthesia Type General Complication(s) none Disposition Accompanied Pt To Recover: yes Disposition: Recovery Room / PACU Overlapping Procedure I was present for: the critical portions of procedure. I was immediately available: during the entire case
[2018-04-03] MEDS ORDERED: OXYCODONE/ACETAMINOPHEN 5-325 TAB PO PRN ×2 (09:30)
[2018-04-03] MEDS ORDERED: TRAM-10 PO (09:31)
--- NOTE | 2018-04-03 09:32 | Discharge Instructions-SurgCtr ---
Discharge Instructions Date of Service Apr 03, 2018. Visit Reason for Visit: Chronic Sinusitis Discharge Discharge Diagnosis / Problem: same Discharge Goals Goal(s): Improve function Activity Recommendations Activity Limitations: resume your previous activity Anesthesia . Post Anesthesia Instructions: If you have had General Anesthesia or IV Sedation: * Do not drive today. * Resume driving when surgeon permits. * Do not make important decisions or sign legal documents today. * Call surgeon for: 1. Temperature elevations greater than 101 degrees F. 2. Uncontrollable pain. 3. Excessive bleeding. 4. Persistent nausea and vomiting. 5. Medication intolerance (nausea, vomiting or rash). * For nausea and vomiting use only clear liquids such as: tea, soda, bouillon until nausea subsides, then gradually increase diet as tolerated. * If you have any concerns or questions, call your surgeon's office. If physician is unavailable and it is an emergency, call 911 or go to the nearest emergency room. . Instructions / Follow-Up Instructions / Follow-Up ACTIVITY RECOMMENDATIONS: * Being up and around is good, but no strenuous activity, heavy lifting or physical exertion for one week. * Keep your head elevated 30 degrees when lying down or sleeping. * Do not blow your nose for 48 hours, sniff back instead. * Avoid hot showers. OVER THE COUNTER MEDICATIONS: * You may use Tylenol * Avoid aspirin or aspirin containing products, e.g. as they may increase bleeding. SPECIAL CARE INSTRUCTIONS: * Expect to have bloody drainage from your nose and/or down your throat for one to three days. Change drip pad as needed. * Begin irrigating your nose with saline solution today, at least six to ten times per day and sniff back to help remove old clots or crust. * You may experience nasal and facial congestion, pain and pressure, this is normal. * Please call with any significant and/or progressive pain, redness, swelling around the eyes, visual changes, fever of 101.5 degrees F, active bleeding or any problems or concerns. * If active bleeding occurs, spray the nose three times at one minute intervals with Afrin spray and call or cell phone: . If unable to reach the doctor, go to the nearest Emergency Department. Special Diet: * Avoid extremely hot fluids. FOLLOW UP VISIT: Follow-up Visit with Dr. Haynes If not already scheduled, please call to schedule. Diet Recommendations Home Diet: no limitations Procedures Procedures Performed: Endoscopic Sinus Surgery, Bilateral Frontal and Maxillary, Ethmoidectomy, Sinusotomy Pending Studies Studies pending at discharge: no Medical Emergencies . Who to Call and When: Medical Emergencies: If at any time you feel your situation is an emergency, please call 911 immediately. . Non-Emergent Contact Non-Emergency issues call your: Primary Care Provider . . "Provider Documentation" section prepared by Nabila Haynes. . [place] Drug Monitoring Program Search Results: no issues identified
--- NOTE | 2018-04-03 10:03 | Anesthesiology Progress Note ---
Anesthesia Post Op Note Date & Time Apr 03, 2018 at 10:03 Vital Signs Pain Intensity: 0 Vital Signs Past 12 Hours Date Time Temp Pulse Resp B/P (MAP) Pulse Ox O2 Delivery O2 Flow Rate FiO2 04/03/18 10:00 74 13 148/69 96 Room Air 04/03/18 09:50 73 13 154/75 100 Oxymask 10 04/03/18 09:40 77 18 148/81 100 Oxymask 04/03/18 09:33 36.7 77 18 157/79 98 Oxymask 10 04/03/18 05:45 36.5 69 18 159/76 (103) 95 Room Air Notes Mental Status: alert / awake / arousable, participated in evaluation Pt Amnestic to Procedure: Yes Nausea / Vomiting: adequately controlled Pain: adequately controlled Airway Patency, RR, SpO2: stable & adequate BP & HR: stable & adequate Hydration State: stable & adequate Anesthetic Complications: no major complications apparent Anesthetic Complications: Pt back to her preoperative baseline.
[2018-04-03 10:15] VITALS: BP 138/72; PULSE 75; TEMP 36.4; O2SAT 95
--- NOTE | 2018-04-03 10:26 | OPERATIVE REPORT ---
DATE OF OPERATION: 04/03/2018 PREOPERATIVE DIAGNOSIS: Chronic sinusitis. POSTOPERATIVE DIAGNOSIS: Chronic sinusitis. PROCEDURE: Right and left frontal, right and left total ethmoid, and right and left maxillary sinus antrostomy. SURGEON: Dr. Haynes. ANESTHESIA: General LMA. COMPLICATIONS: None. BLOOD LOSS: 100 mL. HISTORY: A 67-year-old lady with significant long history of recurrent chronic sinusitis, treated with antibiotics without response. DESCRIPTION OF PROCEDURE: The patient was brought to the operating room and placed in supine position. General anesthesia was induced using LMA, prepped, draped in usual sterile manner. TransporeonLAB device calibrated used for the entire procedure. The nose was decongested using cottonoids with a topical solution of 4 mL of 4% Xylocaine mixed with 1 mL of epinephrine. Injection of 2% Xylocaine with 1:100,000 strength epinephrine was also used. The right maxillary sinus cannulated with guidewire and dilated using the 6 mm balloon as was the left maxillary sinus. The nasal frontal ducts could not be cannulated initially on either side; therefore, the shaver was used on the right side to open up the agger nasi cell opening up the anterior wall, then the posterior wall of the agger nasi cell. At this point, total ethmoidectomy was performed opening up the bullae ethmoidalis going through the ground lamella into the posterior ethmoid air cells. The posterior most ethmoid air cell was delineated along with the skull base and lamina papyracea with the BrainLAB device. These structures were followed anteriorly to exonerate all the posterior and all the anterior ethmoid air cells up to the nasofrontal duct area. At this point, the nasofrontal duct was found using the pointer, the seeker, and then cannulated with BrainLAB computer guidance with the guidewire and then dilated using the 6 mm balloon. The balloon was left inflated. The Contour stent was loaded and then the balloon was deflated and removed and the Contour stent was placed in the nasal frontal duct and a Propel stent was placed in the middle meatus area opening up the middle meatus and the maxillary sinus. The left frontal sinusotomy, total ethmoidectomy, and maxillary sinus antrostomy was performed in similar manner. Again, it was difficult to find the left nasofrontal duct, which had to be located using the pointer, the seeker, and the BrainLAB device. Again, Contour and Propel stents were placed. The patient tolerated the procedure well, was taken to recovery area in satisfactory condition. I attest to the content of the Intraoperative Record and any orders documented therein. Any exception s are noted below.
[2018-04-03 10:45] VITALS: BP 160/70; PULSE 84; TEMP 36.5; O2SAT 95
== END 2018-04-03 10:58 | disposition home or self-care (01) ==
LOC: C.ACU 05:10
PROVIDERS: ATTEND Otolaryngology
DX: J32.9 Chronic sinusitis, unspecified (principal); J44.9 Chronic obstructive pulmonary disease, unspecified; F32.9 Major depressive disorder, single episode, unspecified; I10 Essential (primary) hypertension; M81.0 Age-related osteoporosis without current pathological fracture; Z86.73 Personal history of transient ischemic attack (TIA), and cerebral infarction without residual deficits; Z90.49 Acquired absence of other specified parts of digestive tract; Z90.710 Acquired absence of both cervix and uterus; Z88.5 Allergy status to narcotic agent
CPT/HCPCS: 31253; 31256; 61782; S1090

== ENCOUNTER 2019-06-24 05:10 | Inpatient (IN) ==
--- NOTE | 2019-06-09 14:51 | History & Physical Report ---
Date of Service June 09, 2019 Assessment & Plan (1) Osteoarthritis of right knee: DIAGNOSIS: Right knee osteoarthritis. PROCEDURE: Right total knee arthroplasty. PLAN: The patient is scheduled to undergo a right total knee arthroplasty with Dr. Daryl Barnes at the [facility] as an inpatient on 06/24/2019. Risks and complications of the procedure such as infection, bleeding, pain, scarring, nerve and blood vessel damage, weakness, wound problems, stiffness, incomplete relief of symptoms, hardware failure, hardware loosening, wear, fracture, tendon or ligament injury, blood clots, embolism, heart attack, stroke, were explained to patient by Dr. Barnes at her visit today. Informed consent to perform the procedure was obtained. We will need to obtain preoperative medical clearance from the patient's primary care provider, Dr. Iglesias along with preoperative CBC with differential, complete metabolic panel, PT, INR, blood type and screen, urinalysis, urine culture, hemoglobin A1c and a nasal culture for MRSA. We already have an up-to-date EKG for this patient. The patient has her PT appointment at the hospital this . At that time, she will obtain necessary testing. She also has an appointment with Dr. Iglesias early next week for preoperative medical clearance. The patient states she does not need a handicap placard because she has 1 [address] car that is permanent. She has a walker. She will bring with her on the day of surgery. I gave her information about lectures offered by [facility] in regards to joint replacement. I went over the packet with her during today's visit. We also discussed discharge planning with the use of antibiotics for dental cleaning or procedure after joint replacement surgery; however, she states she will most likely do [facility] for 2 weeks postoperatively, and at the 2-week interval, we will start outpatient rehab at our clinic. The patient will be scheduled for her 2-week followup with myself 2 weeks after surgery. This will need to be scheduled from her previous visit and we will most likely see her on 07/09 for this followup. I advised her that I will discharge her with prescriptions for narcotic pain medication for anti-inflammatory. We will increase her aspirin to twice daily for DVT prophylaxis along with the use of LUKAS stockings. I did provide her with a prescription for Palisade during today's visit for pain control up to the surgery because I recommended that she discontinues use of Voltaren topical gel as well as her diclofenac sodium tablets. The patient verbalized understanding of all information provided during today's visit, thanked us for the care she has received and states if she has questions or concerns that should arise prior to her surgical date, she will contact the clinic. History of Present Illness Chief Complaint: CHIEF COMPLAINT: Right knee pain. Primary Care Provider: Alyse Iglesias HISTORY OF PRESENT ILLNESS: This 68-year-old female was seen in our clinic today for preoperative history and physical. The patient has a longstanding history of bilateral knee pain with the right being greater than the left at this time. She states that the pain in her knee is making it difficult for her to walk. She has been using Voltaren gel and diclofenac sodium tablets with only very minimal relief of her knee pain. She was originally scheduled for a total knee arthroplasty on 07/01/2019, but wishes to proceed sooner. Our next opening is on 06/24 and we will plan on doing a total knee arthroplasty at that time. The patient has failed all conservative measures to help alleviate any pain and improve function in both knees. PAST SURGICAL HISTORY: Deep brain stimulator placement, maxillary sinus endoscopy, lumbar epidural steroid injections, removal of foreign body from the lacrimal abduct, surgical removal of her adrenal gland, colonic biopsy, colonoscopy, upper GI endoscopy, laparoscopic adrenalectomy, stomach biopsy, bilateral breast reduction, section, bilateral cataract removal, D&C, dental surgery, oophorectomy, cholecystectomy, total abdominal hysterectomy, and left knee arthroscopy. PAST MEDICAL HISTORY: Anemia, anxiety, asthma, chronic diarrhea, gastritis, chronic kidney disease, COPD, collagenous colitis, common variable hypogammaglobulinemia, depression, chronically elevated CK, elevated liver function tests, essential tremor, pancreatic insufficiency, gastroesophageal reflux, hypertension, hypothyroidism, hypercholesterolemia, immunocompromised state, insomnia, lactose intolerance, laryngopharyngeal reflux, low serum cortisol levels, lupus, osteoporosis, osteopenia, restless leg syndrome, secondary parkinsonism, obesity. FAMILY HISTORY: Positive for depression, diabetes, emphysema, Debra's thyroiditis, heart attack, hypertension, lung cancer and osteoporosis. ALLERGIES: THE PATIENT HAS MEDICATION ALLERGIES TO BACLOFEN, FLEXERIL, GABAPENTIN, IMITREX, LAMICTAL, NORVASC AND ROBAXIN. CURRENT MEDICATIONS USED: Amitriptyline 50 mg oral tablet 1 tab at bedtime, aspirin 81 mg oral delayed release tablet daily, azelastine 137 mcg/INH 0.1% nasal spray 2 sprays in each nostril twice daily as needed for allergy symptoms, Benefiber oral powder for reconstitution 5 mL by mouth twice daily as needed for constipation, chlorhexidine 0.12% oral rinse 15 mL by mouth swish and spit, clonazepam 2 mg oral tablet 2-1/2 tablets each morning and at lunch, Creon 24,000 international units oral delayed release capsule 1 cap twice daily with meals per gastrointestinal recommendations, Crestor 10 mg oral tablet 1 tab daily, diclofenac sodium 75 mg oral delayed release tablet 1 tab twice daily as needed for pain, doxycycline monohydrate 100 mg oral tablet 1 tab twice daily, duloxetine 30 mg oral delayed release capsule 1 cap daily, fluticasone 50 mcg/INH nasal spray 2 sprays intranasally as needed for allergy symptoms, Hizentra 20% subcutaneous solution 12 grams subcutaneously every 7 days, hydrochlorothiazide 12.5 mg oral capsule 1 cap daily, ketaconazole 2% topical cream 1 application to abdomen twice daily, levothyroxine 175 mcg oral tablet 1 tab daily, Lexapro 10 mg oral tablet 1 tab twice daily, montelukast 10 mg oral tablet 1 tab every evening, Mycolog II topical cream 1 application topically to the abdomen as directed, Plaquenil sulfate 200 mg oral tablet 2 tabs daily, prednisone 5 mg oral tablet daily, ProAir HFA 90 mcg/INH inhaled aerosol 2 puffs inhaled 4 times daily as needed for wheezing, Prolia 60 mg/mL subcutaneous solution 60 mg every 6 months, Protonix 20 mg oral delayed release tablet daily, Remeron 30 mg oral tablet 1 tab at bedtime, ropinirole 2 mg oral tablet extended release 1 tab daily, Spiriva 18 mcg inhaled capsule 1 each inhaled daily, Voltaren 1% topical gel 2 grams applied to the left knee and right shoulder 4 times daily as needed for pain and Xiidra 5% topical ophthalmic solution 1 drop in both eyes twice daily. Allergies Allergy/AdvReac Type Severity Reaction Status Date / Time sumatriptan Allergy Severe ANAPHYLAXIS Verified 06/08/19 15:32 gabapentin Allergy Intermediate STROKE Verified 06/08/19 15:32 SYMPTOMS lamotrigine [From Lamictal] Allergy Intermediate TONGUE Verified 06/08/19 15:32 SWELLING amlodipine Allergy Mild HIVES Verified 06/08/19 15:32 cyclobenzaprine Allergy Mild VERTIGO Verified 06/08/19 15:32 methocarbamol Allergy Mild VERTIGO Verified 06/08/19 15:32 codeine AdvReac Mild GI SYMPTOMS Verified 06/08/19 15:32 Home Medications Home Medications Medication Instructions Recorded Confirmed Type Hizentra 1 dose SUBCUT WK 07/27/18 06/08/19 History aspirin 81 mg PO QAM 07/27/18 06/08/19 History fluticasone propionate 2 spray INTRANASAL HS 07/27/18 06/08/19 History levothyroxine 175 mcg PO QAM 07/27/18 06/08/19 History lutein 20 mg PO QAM 07/27/18 06/08/19 History montelukast 10 mg PO HS 07/27/18 06/08/19 History Benefiber Clear SF (dextrin) 3 g PO TIDM 03/08/19 06/08/19 History Creon 1 - 2 cap PO QAM 03/08/19 06/08/19 History Prolia 60 mg SUBCUT UD 03/08/19 04/15/19 History Spiriva with HandiHaler 1 cap INHALATION QAM 03/08/19 06/08/19 History Xiidra 1 drp OPB BID 03/08/19 06/08/19 History albuterol sulfate [ProAir HFA] 2 puff INHALATION QID PRN 03/08/19 06/08/19 History fluticasone propion-salmeterol 1 inh INHALATION BID 03/08/19 06/08/19 History [Advair Diskus] prednisone 5 mg PO QAM 03/08/19 06/08/19 History Optimized 1,000 mcg PO QAM 04/15/19 History amitriptyline 10 mg PO BID 04/15/19 06/08/19 History azelastine 137 mcg (0.1 %) nasal 2 spray INTRANASAL QAM ml 05/17/19 06/08/19 History spray aerosol ropinirole ER 2 mg tablet,extended 4 mg PO QPM 90 Days #180 tab 05/17/19 06/08/19 Rx release 24 hr chlorhexidine gluconate 15 ml BUCCAL BID 06/08/19 06/08/19 History clonazepam 3 mg PO BIDM 06/08/19 06/08/19 History diclofenac sodium 75 mg PO TID 06/08/19 06/08/19 History duloxetine 30 mg PO QPM 06/08/19 06/08/19 History escitalopram oxalate [Lexapro] 10 mg PO QAM 06/08/19 06/08/19 History hydrochlorothiazide 12.5 mg PO QAM 06/08/19 06/08/19 History hydroxychloroquine [Plaquenil] 400 mg PO QAM 06/08/19 06/08/19 History ketoconazole 1 applic TOPICAL QAM 06/08/19 06/08/19 History mirtazapine [Remeron] 30 mg PO HS 06/08/19 06/08/19 History nystatin-triamcinolone 1 applic TOPICAL QAM 06/08/19 06/08/19 History pantoprazole [Protonix] 20 mg PO QAM 06/08/19 06/08/19 History Past Med/Surg History Medical History Essential tremor (Acute) Restless legs syndrome (Chronic) Anemia Anxiety Asthma SEVERAL MONTHS SINCE LAST EPISODE. SEES DR. GUTIERREZ WITH [facility] Chronic obstructive pulmonary disease SEES DR. GUTIERREZ- NO CURRENT ISSUES Depression GERD (gastroesophageal reflux disease) Heart abnormality SMALL HOLE IN HEART (NO SURGICAL INTERVENTION NEEDED) Hypertension Hypothyroidism Lupus Osteoarthritis Pancreatitis Sciatica Transient ischemic attack (TIA) "AT LEAST 7 TIA'S" 2 YEARS AGO LAST EVENT/FOLLOWS WITH DR. MCKOY Surgical History History of arthroscopy LEFT KNEE History of cardiac cath OVER 10 YEARS AGO (NO STENTS) History of cataract surgery RT/LEFT History of section INCISION DEHISENCE/REVISED History of cholecystectomy History of colonoscopy History of dilatation and curettage X 5 History of nasal surgery SINUS SURGERY FOR INFECTION History of surgery NEURO DEEP BRAIN STIMULATOR DEVICE (TX ESSENTIAL TREMORS) MEDTRONIC DEVICE (PT CAN TURN DEVICE IF NEEDED) 6 YRS AGO WAS PLACED AT [facility] History of tooth extraction Family History Father Family history of diabetes mellitus Brother Family history of diabetes mellitus Social History Preferred Language: Italian Communication Ability: Effective Pantograph Operator Required: No Beliefs That Will Affect Care: None Current Living Situation: Spouse Feels Safe at Home: Yes Smoking Status: Never smoker Do You Dip or Chew Tobacco: No ; Second Hand Exposure: Yes ( CHILD) ; Hx Alcohol Use: No Hx Substance Use: No Review of Systems All systems reviewed & are unremarkable except as noted in HPI & below Physical Exam Physical Exam: PHYSICAL EXAMINATION: Skin: The patient's skin is normal in appearance. No open skin lesions or discharge. Eyes: Pupils are equal and reactive to light and accommodating. Extraocular movements are intact. Throat: Posterior oropharynx is clear with absence of edema, erythema or exudate. Cardiovascular exam: The patient has a regular rate and rhythm with no murmurs or gallops appreciated. Lungs: Auscultation of lung herrera reveals clear breath sounds throughout with no wheezing, rales or rhonchi. Abdomen is obese, nondistended, nontender with normoactive bowel sounds. Extremities: Right knee: The patient has tenderness to palpation over the medial and lateral joint line. There is moderate crepitation with range of motion. Range of motion is from 0 degrees extension to 130 degrees of flexion. There is no edema, erythema, ecchymosis, warmth, palpable bony deformity, no varus or valgus laxity, negative AP drawer sign, negative Johanna test. However, the patient's patella is nonmobile due to arthritic change within the patellofemoral joint. She is neurovascularly intact in the right lower extremity. Calf is soft and supple, nontender to palpation. Neurological exam: Cranial nerves 2-12 are intact. No motor or sensory deficit. Psychological/general exam: The patient is alert and oriented x3 with proper grooming and hygiene.
--- NOTE | 2019-06-11 10:12 | PAT Medication Instructions ---
Medication Instructions Date of Service June 11, 2019 Home Medications Medication Instructions Recorded ropinirole ER 2 mg tablet,extended 4 mg PO QPM 90 Days #180 tab 05/17/19 release 24 hr fluticasone 500 mcg-salmeterol 50 1 inh INHALATION Q12H #3 inhaler 06/11/19 mcg/dose blistr powdr for inhalation Hizentra 1 dose SUBCUT WK aspirin 81 mg PO QAM fluticasone propionate 2 spray INTRANASAL HS levothyroxine 175 mcg PO QAM lutein 20 mg PO QAM montelukast 10 mg PO HS Benefiber Clear SF (dextrin) 3 g PO TIDM Creon 1 - 2 cap PO QAM Prolia 60 mg SUBCUT UD Spiriva with HandiHaler 1 cap INHALATION QAM Xiidra 1 drp OPB BID albuterol sulfate [ProAir HFA] 2 puff INHALATION QID PRN prednisone 5 mg PO QAM Optimized 1,000 mcg PO QAM amitriptyline 10 mg PO BID azelastine 137 mcg (0.1 %) nasal spray aerosol 2 spray INTRANASAL QAM ropinirole ER 2 mg tablet,extended release 24 hr 4 mg PO QPM 90 Days chlorhexidine gluconate 15 ml BUCCAL BID clonazepam 3 mg PO BIDM diclofenac sodium 75 mg PO TID duloxetine 30 mg PO QPM escitalopram oxalate [Lexapro] 10 mg PO QAM hydrochlorothiazide 12.5 mg PO QAM hydroxychloroquine [Plaquenil] 400 mg PO QAM ketoconazole 1 applic TOPICAL QAM mirtazapine [Remeron] 30 mg PO HS nystatin-triamcinolone 1 applic TOPICAL QAM pantoprazole [Protonix] 20 mg PO QAM fluticasone 500 mcg-salmeterol 50 mcg/dose blistr powdr for inhalation 1 inh INHALATION Q12H Continue as directed prednisone 5 mg PO QAM Prolia 60 mg SUBCUT UD ASK your surgeon for instructions diclofenac sodium 75 mg PO TID ASK your prescriber and surgeon Hizentra 1 dose SUBCUT WK hydroxychloroquine [Plaquenil] 400 mg PO QAM STOP taking 2 weeks before surgery (or as soon as possible if surgery is within 2 weeks) lutein 20 mg PO QAM STOP taking 24 hours before surgery ropinirole ER 2 mg tablet,extended release 24 hr 4 mg PO QPM 90 Days ketoconazole 1 applic TOPICAL QAM nystatin-triamcinolone 1 applic TOPICAL QAM DO NOT take the morning of surgery Benefiber Clear SF (dextrin) 3 g PO TIDM Creon 1 - 2 cap PO QAM Optimized 1,000 mcg PO QAM chlorhexidine gluconate 15 ml BUCCAL BID hydrochlorothiazide 12.5 mg PO QAM Take morning of surgery With a small sip of water, OTHERWISE NOTHING TO EAT OR DRINK AFTER MIDNIGHT: aspirin 81 mg PO QAM levothyroxine 175 mcg PO QAM Spiriva with HandiHaler 1 cap INHALATION QAM Xiidra 1 drp OPB BID albuterol sulfate [ProAir HFA] 2 puff INHALATION QID PRN (use if needed; please bring with you to hospital day of surgery if possible) amitriptyline 10 mg PO BID azelastine 137 mcg (0.1 %) nasal spray aerosol 2 spray INTRANASAL QAM clonazepam 3 mg PO BIDM escitalopram oxalate [Lexapro] 10 mg PO QAM pantoprazole [Protonix] 20 mg PO QAM fluticasone 500 mcg-salmeterol 50 mcg/dose blistr powdr for inhalation 1 inh INHALATION Q12H Take evening before surgery fluticasone propionate 2 spray INTRANASAL HS montelukast 10 mg PO HS Benefiber Clear SF (dextrin) 3 g PO TIDM Xiidra 1 drp OPB BID albuterol sulfate [ProAir HFA] 2 puff INHALATION QID PRN (if needed) amitriptyline 10 mg PO BID chlorhexidine gluconate 15 ml BUCCAL BID clonazepam 3 mg PO BIDM duloxetine 30 mg PO QPM mirtazapine [Remeron] 30 mg PO HS fluticasone 500 mcg-salmeterol 50 mcg/dose blistr powdr for inhalation 1 inh INHALATION Q12H Other Notes If you have any questions please call us at [phone] or [phone] or [phone] or [phone]
--- NOTE | 2019-06-11 13:52 | Anesthesiology Consultation ---
Date of Service June 11, 2019 Assessment & Plan (1) Encounter for pre-operative examination: - Awaiting review preop testing (labs). - Awaiting surgeon-ordered PCP clearance scheduled 06/14 (Dr. Iglesias). Chart Review Chart Review: Patient seen in Pre Admission Testing Teaching & Discussion Pre-Anesthesia Teaching/Discussion Notes: Instructed NPO after midnight before surgery,except medications with 15 cc of water. Medication instructions provided according to the PAT guidelines. History Surgery Operation Date: 06/24/19 07:15 Proposed Procedures p Right Total Knee Arthroplasty - Daryl Barnes MD Height/Weight Height: 5 ft Weight: 83 kg Allergies Allergy/AdvReac Type Severity Reaction Status Date / Time sumatriptan Allergy Severe ANAPHYLAXIS Verified 06/08/19 15:32 lamotrigine [From Lamictal] Allergy Intermediate TONGUE Verified 06/08/19 15:32 SWELLING amlodipine Allergy Mild HIVES Verified 06/08/19 15:32 gabapentin AdvReac Intermediate STROKE-LIKE Verified 06/11/19 14:01 SYMPTOMS codeine AdvReac Mild GI SYMPTOMS Verified 06/08/19 15:32 cyclobenzaprine AdvReac Mild VERTIGO Verified 06/11/19 14:01 methocarbamol AdvReac Mild VERTIGO Verified 06/11/19 14:01 Medications Home Medications Medication Instructions Recorded Confirmed Last Taken Hizentra 1 dose SUBCUT WK 07/27/18 06/08/19 03/16/19 aspirin 81 mg PO QAM 07/27/18 06/08/19 03/22/19 06:00 fluticasone propionate 2 spray INTRANASAL HS 07/27/18 06/08/19 03/21/19 levothyroxine 175 mcg PO QAM 07/27/18 06/08/19 03/22/19 06:00 lutein 20 mg PO QAM 07/27/18 06/08/19 03/21/19 montelukast 10 mg PO HS 07/27/18 06/08/19 03/21/19 21:00 Benefiber Clear SF (dextrin) 3 g PO TIDM 03/08/19 06/08/19 03/20/19 Creon 1 - 2 cap PO QAM 03/08/19 06/08/19 03/22/19 06:00 Prolia 60 mg SUBCUT UD 03/08/19 04/15/19 02/15/19 Spiriva with HandiHaler 1 cap INHALATION QAM 03/08/19 06/08/19 03/22/19 Xiidra 1 drp OPB BID 03/08/19 06/08/19 03/22/19 albuterol sulfate [ProAir HFA] 2 puff INHALATION QID PRN 03/08/19 06/08/19 Unknown prednisone 5 mg PO QAM 03/08/19 06/08/19 03/22/19 06:00 Optimized 1,000 mcg PO QAM 04/15/19 Unknown amitriptyline 10 mg PO BID 04/15/19 06/08/19 Unknown azelastine 137 mcg (0.1 %) nasal 2 spray INTRANASAL QAM ml 05/17/19 06/08/19 Unknown spray aerosol ropinirole ER 2 mg tablet,extended 4 mg PO QPM 90 Days #180 tab 05/17/19 06/08/19 Unknown release 24 hr chlorhexidine gluconate 15 ml BUCCAL BID 06/08/19 06/08/19 Unknown clonazepam 3 mg PO BIDM 06/08/19 06/08/19 Unknown diclofenac sodium 75 mg PO TID 06/08/19 06/08/19 Unknown duloxetine 30 mg PO QPM 06/08/19 06/08/19 Unknown escitalopram oxalate [Lexapro] 10 mg PO QAM 06/08/19 06/08/19 Unknown hydrochlorothiazide 12.5 mg PO QAM 06/08/19 06/08/19 Unknown hydroxychloroquine [Plaquenil] 400 mg PO QAM 06/08/19 06/08/19 Unknown ketoconazole 1 applic TOPICAL QAM 06/08/19 06/08/19 Unknown mirtazapine [Remeron] 30 mg PO HS 06/08/19 06/08/19 Unknown nystatin-triamcinolone 1 applic TOPICAL QAM 06/08/19 06/08/19 Unknown pantoprazole [Protonix] 20 mg PO QAM 06/08/19 06/08/19 Unknown fluticasone 500 mcg-salmeterol 50 1 inh INHALATION Q12H #3 inhaler 06/11/19 Unknown mcg/dose blistr powdr for inhalation Past Medical History Medical History Essential tremor deep brain stimulator- Medtronic; able to turn device off if needed/OR made aware Restless legs syndrome Anemia Anxiety Asthma stable Chronic obstructive pulmonary disease follows with Dr. Medeiros (pulmonary) Depression GERD (gastroesophageal reflux disease) History of blood transfusion s/p c/s Hypertension Hypothyroidism Lupus Osteoarthritis PFO (patent foramen ovale) "small" with right to left shunt-- patient states she was advised no surgical intervention needed/continued on ASA Pancreatitis Sciatica Transient ischemic attack (TIA) 7+ TIA's (no event x 2+ years)- follows with neurology (Dr. Dowell) Exercise / Class Metabolic Activity III < 4 Walking/Shop/Light housework (uses cane PRN) Past Family History Family History Father Family history of diabetes mellitus Brother Family history of diabetes mellitus Past Surgical History Surgical History History of arthroscopy Left knee scope: 11/16/18: LMA#4 at [facility] [place] History of cardiac cath 10+ YEARS AGO (NO STENTS) History of cataract surgery RT/LEFT History of section INCISION DEHISENCE/REVISED History of cholecystectomy History of colonoscopy History of dilatation and curettage X5 History of nasal surgery SINUS SURGERY FOR INFECTION History of surgery NEURO DEEP BRAIN STIMULATOR DEVICE (TX ESSENTIAL TREMORS) MEDTRONIC DEVICE (PT CAN TURN DEVICE IF NEEDED) 6 YRS AGO WAS PLACED AT [facility] History of tooth extraction Past Anesthesia History No Hx of Anesthesia Complications and No Family Hx of Anesthesia Complications History of PONV No Hx of PONV and No Hx of Motion Sickness Social History Smoking Status: Never smoker Do You Dip or Chew Tobacco: No Hx Alcohol Use: No Hx Substance Use: No substance use type: does not use Review of Systems Patient denies chest pain, shortness of breath, cough, wheezing, palpitations. Physical Exam Vital Signs VITALS BP 119/59 P 86 TEMP 98.4 SP02 94%RA RESP 16 PHYSICAL Full neck and c-spine range of motion. Full TMJ range of motion. 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 Atherosclerosis of aortic arch. Cardiac silhouette top normal in size. Lungs and pleural spaces clear. Posttraumatic deformity of the right humeral neck. Cholecystectomy clips noted. No acute cardiopulmonary disease. Echocardiogram Date: 06/09/17 LVEF 65%. No RWMA. Mild LAD. Possible PFO with small right to left shunt. Mild MR.
[2019-06-11 15:32] LABS: Basophils # (auto) 0.02 K/uL (0-0.2); Basophils % (auto) 0.3 %; Eosinophils % (auto) 2.6 %; Hematocrit (blood only) 40.1 % (37-47); Hemoglobin 12.6 g/dL (12.0-16.0); Immature Granulocytes # (auto) 0.05 K/uL (0.00-0.02); Immature Granulocytes % (auto) 0.7 %; Lymphocytes # (auto) 0.57 K/uL (1.2-3.4); Lymphocytes % (auto) 7.4 %; Mean Corpuscular Hemoglobin 32.3 pg (25-34); Mean Corpuscular Hgb Conc 31.4 g/dL (32-36); Mean Corpuscular Volume 102.8 fL (80-100); Mean Platelet Volume 10.5 fL (7.4-10.4); Monocytes # (auto) 0.54 K/uL (0.11-0.59); Platelet Count 235 K/uL (130-400); RDW Coefficient of Variation 13.4 % (11.5-14.5); RDW Standard Deviation 50.5 fL (36.4-46.3); White Blood Count 7.68 K/uL (4.8-10.8)
[2019-06-11 16:04] LABS: Partial Thromboplastin Ratio 0.9; Partial Thromboplastin Time 25.2 Seconds (21.0-31.0); Prothrombin Time 9.8 Seconds (9.0-12.0)
[2019-06-11 16:09] LABS: Appearance Urine Clear (Clear); Bilirubin Urine Negative (Negative); Blood Urine Negative (Negative); Color Urine Yellow; Glucose Urine UA Negative (Negative); Ketones Urine Negative (Negative); Leukocyte Esterase Urine Negative (Negative); Nitrite Urine Negative (Negative); Specific Gravity Urine <= 1.005 (1.000-1.030); Urobilinogen Urine Negative (Negative); pH Urine 7.5 (4.5-7.5)
[2019-06-11 16:18] LABS: Protein Urine Negative (Negative)
[2019-06-11 16:19] LABS: Sulfosalicylic Acid Urine Negative (Negative)
[2019-06-11 16:39] LABS: BUN Creatinine Ratio 15.1 (10-20); Calcium 8.4 mg/dl (8.5-10.1); Creatinine Clr Calc Pharmacy 51.2 ml/min; Est GFR (African American) 67.4; Est GFR (Non-African American) 58.1; Potassium 4.2 mmol/L (3.5-5.1)
[2019-06-11 16:41] LABS: Albumin Globulin Ratio 0.7 (0.9-2); Bilirubin,Total 0.4 mg/dl (0.2-1); Globulin 4.5 gm/dl (2.5-4.0); Total Protein 7.5 gm/dl (6.4-8.2)
[2019-06-12 07:27] LABS: Estimated Average Glucose 108 mg/dl; Hemoglobin A1C 5.4 % (4.5-5.6)
[2019-06-24] MEDS ORDERED: METOCLOPRAMIDE HCL 10 MG TABLET PO SCH (06:00)
[2019-06-24] MEDS ORDERED: LR 500ML BOLUS IV SCH (06:00)
[2019-06-24] MEDS ORDERED: CEFAZOLIN 2000MG 2,000 MG/15 ML SYR IV SCH (06:00)
[2019-06-24] MEDS ORDERED: ACETAMINOPHEN 500 MG TAB PO SCH (06:00)
[2019-06-24] MEDS ORDERED: dexAMETHasone 4 MG TAB PO SCH (06:00)
[2019-06-24] MEDS ORDERED: FAMOTIDINE 20 MG TAB PO SCH (06:00)
[2019-06-24] MEDS ORDERED: SCOPOLAMINE 1.5 MG TDSY TD SCH (06:00)
[2019-06-24] MEDS ORDERED: ROPIVACAINE 0.5% HCL/PF 150 MG, BUPIVACAINE 0.5% MPF 30 ML, EPINEPHrine 0.15 MG, Ketoro... INFIL SCH (06:00)
[2019-06-24] MEDS ORDERED: TRANEXAMIC ACID 1,000 MG **IV Pre-op IV SCH (06:00)
[2019-06-24] MEDS ORDERED: LACTATED RINGER'S 1,000 ML IV SCH (06:00)
[2019-06-24] MEDS ORDERED: TRAMADOL HCL 50 MG TABLET PO SCH (06:00)
[2019-06-24] MEDS ORDERED: LR 15ML/HR IV SCH (06:00)
[2019-06-24] MEDS ORDERED: BUPIVACAINE 0.5 % 5 MG/1 ML PF 10ML VIAL ONE (06:26)
[2019-06-24] MEDS ORDERED: EPINEPHrine INJ 1 MG/ML AMP ONE (06:26)
[2019-06-24] MEDS ORDERED: ROPIVACAINE 0.5% 5 MG/ML 30 ML VIAL ONE (06:26)
[2019-06-24] MEDS ORDERED: TRANEXAMIC ACID 1,000 MG **IV Intra-op IV SCH (06:30)
[2019-06-24] MEDS ORDERED: ORTHO JOINT ANESTHETIC ONE (06:59)
[2019-06-24] MEDS ORDERED: fentaNYL citrate 100 MCG/2 ML VIAL ONE (07:01)
[2019-06-24] MEDS ORDERED: MIDAZOLAM HCL 1 MG/ML 2ML VIAL ONE ×2 (07:01)
[2019-06-24] MEDS ORDERED: PROPOFOL IV EMULSION 10 MG/ML 20 ML VIAL IV ONE ×2 (07:01→08:00)
--- NOTE | 2019-06-24 07:02 | History & Physical Bridge Note ---
Date of Service June 24, 2019 History & Physical Bridge Note I have examined the patient, reviewed the History & Physical and in the interval since the performance of the History & Physical I have noted the following changes of clinical significance: no changes noted
[2019-06-24] MEDS ORDERED: HYDROCORTISONE SOD SUCCINATE 100 MG/2 ML VIAL ONE (07:17)
[2019-06-24] MEDS ORDERED: ePHEDrine sulfate 50 MG/ML AMP IV PRN (07:56)
[2019-06-24] MEDS ORDERED: fentaNYL citrate 100 MCG/2 ML VIAL IV PRN (07:56)
[2019-06-24] MEDS ORDERED: ONDANSETRON INJ 2 MG/ML 2 ML VIAL IV PRN (07:56)
[2019-06-24] MEDS ORDERED: ATROPINE SULFATE 0.1 MG/ML 10ML SYR IV PRN (07:56)
--- NOTE | 2019-06-24 09:33 | Post Operative Brief Note ---
Immediate Post Op Note v1 Date of Surgery June 24, 2019 Pre & Post Diagnosis Operation Date: 06/24/19 07:15 Pre-Op Diagnosis: Right Knee Arthritis Post-Op Diagnosis: Right Knee Arthritis I identified the patient and participated in the time-out.: Yes Procedure Operation Date: 06/24/19 07:15 Actual Procedures p Right Total Knee Arthroplasty(Right) - Daryl Barnes MD Surgeon Daryl Barnes MD Public Health Officer CRISTIAN Menjivar PA-C Estimated Blood Loss 50 Findings Consistent with Post-Op Diagnosis Fluids 1500 cc Specimens Bone cuts distal femur, proximal tibia, patella Anesthesia Type Spinal MAC Complications none Disposition Accompanied Patient To Recovery: No Disposition: Recovery Room
--- NOTE | 2019-06-24 09:46 | Operative Report ---
Post Operative Report Pre & Post Diagnosis Operation Date: 06/24/19 07:15 Pre-Op Diagnosis: Right Knee Arthritis Post-Op Diagnosis: Right Knee Arthritis I identified the patient and participated in the time-out.: Yes Procedure Operation Date: 06/24/19 07:15 Actual Procedures p Right Total Knee Arthroplasty(Right) - Daryl Barnes MD Surgeon Daryl Barnes MD Patent Engineer CRISTIAN Menjivar PA-C Estimated Blood Loss 50 Findings Consistent with Post-Op Diagnosis Specimens none Complications none Disposition Accompanied Patient To Recovery: Yes Disposition: Recovery Room Description of Procedure I was present during the entire procedure assisting with wound closure and dressing application. Please see Dr. Barnes procedure note for specifics of the case. I attest to the content of the Intraoperative Record and any orders documented therein. Any exceptions are noted below.
[2019-06-24] MEDS ORDERED: HYDROmorphone INJ 0.5 MG/0.5 ML SYR IV PRN (09:47)
[2019-06-24] MEDS ORDERED: OXYCODONE HCL IR 5 MG TAB (IMMEDIATE RELEASE) PO PRN (09:47)
[2019-06-24] MEDS ORDERED: DiphenhydrAMINE HCL 50 MG/ML VIAL IV PRN (09:47)
[2019-06-24] MEDS ORDERED: ALUMINUM/MAGNESIUM SUSP 30 ML UDC PO PRN (09:47)
[2019-06-24] MEDS ORDERED: MAGNESIUM HYDROXIDE SUSP 30 ML UDC PO PRN (09:47)
[2019-06-24] MEDS ORDERED: BISACODYL 10 MG SUPP PR PRN (09:47)
[2019-06-24] MEDS ORDERED: NALOXONE HCL 0.4 MG/1 ML VIAL/CARP IV PRN (09:47)
[2019-06-24] MEDS ORDERED: ALBUTEROL HFA 8 GM INHALER INH PRN (09:56)
[2019-06-24] MEDS ORDERED: SODIUM CHLORIDE 0.9% 1000ML 1,000 ML IV SCH (10:00)
--- NOTE | 2019-06-24 10:00 | Operative Report ---
DATE OF OPERATION: 06/24/2019 PREOPERATIVE DIAGNOSIS: Right knee osteoarthritis. POSTOPERATIVE DIAGNOSIS: Right knee osteoarthritis. OPERATIONS PERFORMED: Right total knee arthroplasty. SURGEON: Daryl Barnes MD CHARTER COACH DRIVER: Kassandra Menjivar. ESTIMATED BLOOD LOSS: 50 mL. INTRAVENOUS FLUIDS: 1500 mL crystalloid. SPECIMENS: Bone and soft tissue contents from the right knee. COMPLICATIONS: None. IMPLANTS: 1. DePuy Sigma posterior stabilized cemented femur size 2.5. 2. DePuy MBT keel tibial tray for rotating platform size 2 cemented. 3. A 2.5 x 10 mm rotating platform polyethylene insert. 4. A 35 mm oval dome patella. INDICATIONS: Ms. Waters is a 68-year-old female with right knee pain secondary to osteoarthritis that has been refractory to conservative management. X-rays demonstrate bone on bone arthritis in the lateral compartment and tricompartmental osteophyte formation. I had a long discussion with her about the risks and benefits of surgery, alternatives to surgery and expected outcomes. After reviewing all these, she elected to proceed with surgery. She understands that she is at elevated risk for complication given her medical history of chronic steroid use and subsequent immunosuppression. After reviewing all the risks and benefits of surgery, she elected to proceed. All questions were answered. Informed consent was signed. OPERATIVE FINDINGS: The patient had complete cartilage loss in the lateral compartment of the knee. A rotating platform posterior stabilized total knee arthroplasty was performed without complication. DESCRIPTION OF THE OPERATION: The patient was identified in the preoperative holding area where her surgical site was marked. She was given a spinal as well as an adductor canal block by anesthesia and brought back to the main operating room where she was placed on the operating room table and sedation was administered. All bony prominences were padded. Perioperative antibiotics were administered. She was prepped and draped in normal sterile fashion. Prior to incision, a multidisciplinary timeout was called. All in the room were in agreement. We began by exsanguinating the limb with an Esmarch bandage. Tourniquet was inflated to 250 mmHg. Total tourniquet time for the case was 46 minutes. A 14 cm midline incision was made for medial parapatellar approach to the knee. We dissected down through subcutaneous tissues to the level of the fascia. Flaps were raised above the fascia. Arthrotomy was then made along the medial border of the patellar tendon and curving around the patella and up into the quadriceps tendon. A medial release was performed using electrocautery. Half the fat pad was excised. Synovitis was removed from the suprapatellar pouch. The patella was then everted and held with 2 towel clips. It measured to a 21 mm thickness. The reciprocating saw was used to resect her down to a 13 mm. We then sized to a 35 mm oval dome patella. We drilled the 3 holes and then placed the trial implant. The caliper showed she was at 22 mm thickness which I was very happy with. Trial button was then removed. The patella was everted and the knee was flexed up. Osteophytes from the notch were removed and the cruciate ligaments were excised sharply. The intramedullary drill was used for the femur followed by the distal femoral cutting jig was set at 5 degrees valgus and to resect 11 mm off of the less involved medial femoral condyle. Once our cut was made, we then exposed the tibia. The tibial cutting jig was set with no posterior slope and to resect 10 mm off of the less involved medial tibial plateau. The cutting jig was pinned into position and the proximal tibial cut was made. The extension block was then placed and we had full extension with a 10 mm block with good varus valgus stability. The lamina spreaders were placed and the medial meniscus was excised. Next, the knee was flexed back up and a distal femoral sizing guide was placed. She sized to 2.5 femur. The 3 degree external rotation guide was placed and the pins were inserted. We checked these pins off of Tanna's line as well as epicondylar axis and we had appropriate external rotation of the component replicating a normal anatomy. We then placed the 4-in-1 cutting block and made our 4 cuts. The flexion block was then brought up onto the field and she had a stable flexion gap with 10 mm spacer to varus and valgus at 90 degrees. Next, the box cutting jig was placed and the guide was pinned into position. The box cut was made without difficulty. The femoral trial was then placed and the cuts were excellent. The tibia was exposed and she was sized to a size 2 tibia. The jig was pinned into position and the tower was impacted and the intramedullary reamer was used. The keel punch was then used. We then placed our trial 10 mm polyethylene on the tibial trial and bladder through a full range of motion and she had excellent stability to varus and valgus throughout. Patellar tracking was excellent. At this point, the trial components were removed. The injection cocktail was then injected in the posterior capsule using a total of 20 mL spread throughout the posterior capsule aspirating to ensure that the neurovascular structures were not affected. We then irrigated all of our cut bony surfaces while the cement was mixing. We then cemented on the femoral component protected with a lap sponge and cemented on the tibial component. The 10 mm trial polyethylene was placed and the knee was brought into full extension and the patella was cemented and clamped. At this point, the wound was irrigated with a dilute Betadine solution. The tourniquet was let down at 46 minutes. Meticulous hemostasis was ensured. The leg was held in full extension until the cement had fully cured. We then removed the patellar clamp and flexed the knee back up. There was no remaining excess cement that needed to be removed. We therefore placed the real polyethylene insert and then began to close. The wound was irrigated with copious amounts of normal saline. The patellar tendon and quadriceps tendon were closed with running #1 Ethibond. The patellar retinaculum was closed with interrupted 0 Vicryl sutures in [id number] fashion. The deep dermal layer was closed with a running 2-0 Vicryl followed by a ZipLine for the skin. A Silverlon dressing was placed followed by compressive wrap. The patient's sedation was lifted and she was transferred to recovery room in stable condition. POSTOPERATIVE COURSE: The patient will be admitted overnight for pain control and monitoring. She will be discharged home tomorrow. She will be on aspirin for DVT prophylaxis. She did receive 100 mg of hydrocortisone for stress dose steroids and we will monitor her for the need for additional doses postoperatively. She is weightbearing as tolerated. X-rays are pending in the recovery room. I attest to the content of the Intraoperative Record and any orders documented therein. Any exception s are noted below.
--- NOTE | 2019-06-24 10:26 | XRay Report ---
RIGHT KNEE 2 VIEWS History: Right total knee arthroplasty. Degenerative arthritis. Postop. FINDINGS: The patient is status post a right total knee arthroplasty. The hardware is intact. No frac ture or dislocation. IMPRESSION: Right total knee arthroplasty. No evidence for hardware complication. Electronically signed by: Jd Martinez M.D. 06/24/2019 10:25 AM
--- NOTE | 2019-06-24 11:07 | Anesthesiology Progress Note ---
Date of Service June 24, 2019 Anesthesia Post Procedure Vital Signs Vital Signs: Temp Pulse Pulse Resp BP Pulse Ox 06/24/19 10:25 36.8 C 72 18 124/70 95 06/24/19 10:15 36.8 C 71 18 125/69 95 06/24/19 10:05 67 18 123/70 96 06/24/19 09:55 68 18 117/67 95 06/24/19 09:46 37.0 C 72 18 121/71 92 06/24/19 05:49 36.6 C 84 18 127/80 94 Pain Intensity Right Knee: Pain Intensity: 5 Transfer of Care Handoff Completed per policy Notes Mental Status: alert / awake / arousable and participated in evaluation Patient Amnestic to Procedure: Yes Nausea / Vomiting: adequately controlled Pain: adequately controlled Airway Patency, RR, SpO2: stable & adequate BP & HR: stable & adequate Hydration State: stable & adequate Neuraxial Anesthesia: was administered and sensory block is resolving Anesthetic Complications: no major complications apparent and Pt Satisfied with anesthetic care
--- NOTE | 2019-06-24 11:22 | Hospitalist Consultation ---
Date of Consultation June 24, 2019 Assessment & Plan (1) History of arthroplasty of right knee: Present on Admission?: Yes (2) Osteoarthritis of right knee: (3) Chronic obstructive pulmonary disease: (4) Essential tremor: (5) Depression with anxiety: (6) Restless legs syndrome: (7) Secondary parkinsonism: (8) Stage III chronic kidney disease: (9) S/P deep brain stimulator placement: (10) Lupus: (11) HTN (hypertension): Continue home medications. Will hold oral prednisone and start the patient on IV hydrocortisone 25 mg every 8 hourly, today and tomorrow, as she is at intermediate risk of HPA suppression. Pain control and DVT prophylaxis per primary team. She was started on aspirin twice daily for DVT prophylaxis. We will follow the patient along with orthopedics team.. History of Present Illness Reason for Consultation: Medical management, postop- status post right knee arthroplasty Requesting Physician: Daryl Barnes MD Attending Physician: Daryl Barnes MD History of Present Illness The patient is 68 years old female who had total right knee arthroplasty today. She tolerated the surgery well without any complications. Postoperative pain appears to be under control. Hospitalist consultation was requested for medical management. She has history of lupus for which she takes prednisone 5 mg daily. She also has a history of brain stimulator for tremors. She has past medical history of hypertension, COPD/ asthma. She has history of multiple TIAs in the past. She saw her family physician at [place] and was advised to start IV hydrocortisone on the day of surgery and 1 day postop, and to stop prednisone. She denies any chest pain. No shortness of breath. No cough/ sputum/ hemoptysis. No fever. Home medications were resumed. Allergies Allergy/AdvReac Type Severity Reaction Status Date / Time sumatriptan Allergy Severe ANAPHYLAXIS Verified 06/24/19 05:40 lamotrigine [From Lamictal] Allergy Intermediate TONGUE Verified 06/24/19 05:40 SWELLING amlodipine Allergy Mild HIVES Verified 06/24/19 05:40 gabapentin AdvReac Intermediate STROKE-LIKE Verified 06/24/19 05:40 SYMPTOMS codeine AdvReac Mild GI SYMPTOMS Verified 06/24/19 05:40 cyclobenzaprine AdvReac Mild VERTIGO Verified 06/24/19 05:40 methocarbamol AdvReac Mild VERTIGO Verified 06/24/19 05:40 Home Medications Home Medications Medication Instructions Recorded Confirmed Type Hizentra 1 dose SUBCUT WK 07/27/18 06/24/19 History aspirin 81 mg PO QAM 07/27/18 06/24/19 History fluticasone propionate 2 spray INTRANASAL HS 07/27/18 06/24/19 History levothyroxine 175 mcg PO QAM 07/27/18 06/24/19 History lutein 20 mg PO QAM 07/27/18 06/24/19 History montelukast 10 mg PO HS 07/27/18 06/24/19 History Benefiber Clear SF (dextrin) 3 g PO TIDM 03/08/19 06/24/19 History Creon 1 - 2 cap PO QAM 03/08/19 06/24/19 History Prolia 60 mg SUBCUT UD 03/08/19 04/15/19 History Spiriva with HandiHaler 1 cap INHALATION QAM 03/08/19 06/24/19 History Xiidra 1 drp OPB BID 03/08/19 06/24/19 History albuterol sulfate [ProAir HFA] 2 puff INHALATION QID PRN 03/08/19 06/24/19 History prednisone 5 mg PO QAM 03/08/19 06/24/19 History Optimized 1,000 mcg PO QAM 04/15/19 History amitriptyline 10 mg PO BID 04/15/19 06/24/19 History azelastine 137 mcg (0.1 %) nasal 2 spray INTRANASAL QAM ml 05/17/19 06/24/19 History spray aerosol ropinirole ER 2 mg tablet,extended 4 mg PO QPM 90 Days #180 tab 05/17/19 06/24/19 Rx release 24 hr chlorhexidine gluconate 15 ml BUCCAL BID 06/08/19 06/24/19 History clonazepam 3 mg PO BIDM 06/08/19 06/24/19 History diclofenac sodium 75 mg PO TID 06/08/19 06/24/19 History duloxetine 30 mg PO QPM 06/08/19 06/08/19 History escitalopram oxalate [Lexapro] 10 mg PO QAM 06/08/19 06/24/19 History hydrochlorothiazide 12.5 mg PO QAM 06/08/19 06/24/19 History hydroxychloroquine [Plaquenil] 400 mg PO QAM 06/08/19 06/24/19 History ketoconazole 1 applic TOPICAL QAM 06/08/19 06/24/19 History mirtazapine [Remeron] 30 mg PO HS 06/08/19 06/24/19 History nystatin-triamcinolone 1 applic TOPICAL QAM 06/08/19 06/24/19 History pantoprazole [Protonix] 20 mg PO QAM 06/08/19 06/24/19 History fluticasone 500 mcg-salmeterol 50 1 inh INHALATION Q12H #3 inhaler 06/11/19 Rx mcg/dose blistr powdr for inhalation Patient History Medical History Essential tremor deep brain stimulator- [employer]; able to turn device off if needed/OR made aware Restless legs syndrome Lupus Anemia Anxiety Asthma stable Chronic obstructive pulmonary disease follows with Dr. Medeiros (pulmonary) Depression GERD (gastroesophageal reflux disease) History of blood transfusion s/p c/s Hypertension Hypothyroidism Osteoarthritis PFO (patent foramen ovale) "small" with right to left shunt-- patient states she was advised no surgical intervention needed/continued on ASA Pancreatitis Sciatica Transient ischemic attack (TIA) 7+ TIA's (no event x 2+ years)- follows with neurology (Dr. Dowell) Surgical History History of arthroscopy Left knee scope: 11/16/18: LMA#4 at [facility] [place] History of cardiac cath 10+ YEARS AGO (NO STENTS) History of cataract surgery RT/LEFT History of section INCISION DEHISENCE/REVISED History of cholecystectomy History of colonoscopy History of dilatation and curettage X5 History of nasal surgery SINUS SURGERY FOR INFECTION History of surgery NEURO DEEP BRAIN STIMULATOR DEVICE (TX ESSENTIAL TREMORS) MEDTRONIC DEVICE (PT CAN TURN DEVICE IF NEEDED) 6 YRS AGO WAS PLACED AT [facility] History of tooth extraction Family History Father Family history of diabetes mellitus Brother Family history of diabetes mellitus Social History Preferred Language: Zambian Communication Ability: Effective Public Policy Professor Required: No Beliefs That Will Affect Care: None Current Living Situation: Spouse Feels Safe at Home: Yes Smoking Status: Never smoker Do You Dip or Chew Tobacco: No ; Second Hand Exposure: Yes ( CHILD) ; Hx Alcohol Use: No Hx Substance Use: No Review of Systems Review of Systems: All systems reviewed & are unremarkable except as noted in HPI & below Physical Exam Physical Exam: GENERAL : No acute distress EYES: No icterus, gaze conjugate NOSE: No evidence of epistaxis MOUTH: No lesions or candidiasis, mucosa moist NECK: Supple LUNGS: CTA B/L, no wheezes, rales or rhonchi HEART: Regular, rate controlled ABDOMEN: Soft, NT, ND, BS Present EXTREMITIES: No LE edema, pedal pulses intact Right knee postop dressing noted. NEURO: A&OX3 L Results & Data Vital Signs (Past 12 Hours) Vital Signs Temp Pulse Pulse Resp BP Pulse Ox 06/24/19 10:25 98.2 F 72 18 124/70 95 06/24/19 10:15 98.2 F 71 18 125/69 95 06/24/19 10:05 67 18 123/70 96 06/24/19 09:55 68 18 117/67 95 06/24/19 09:46 98.6 F 72 18 121/71 92 06/24/19 05:49 97.9 F 84 18 127/80 94 Laboratory Results 06/11/19 14:14 06/11/19 14:14 Diagnostic Findings RIGHT KNEE 2 VIEWS History: Right total knee arthroplasty. Degenerative arthritis. Postop. FINDINGS: The patient is status post a right total knee arthroplasty. The hardware is intact. No fracture or dislocation. IMPRESSION: Right total knee arthroplasty. No evidence for hardware complication. PG Care Time/CCT Total # of Minutes Spent Total Time Spent with Patient: Total time spent is greater than 50% in coordination of care (as documented) at patient's floor/unit and/or counseling patient:
[2019-06-24] MEDS ORDERED: ARTIFICIAL TEARS OP PRN (12:00)
[2019-06-24] MEDS: PSYLLIUM 58.6% POWDER PACKET PO SCH ×2 (13:12→17:03)
[2019-06-24] MEDS: KETOROLAC TROMETHAMINE 15 MG/ML VIAL IV SCH ×2 (13:19→18:51)
[2019-06-24] MEDS: ACETAMINOPHEN 500 MG TAB PO SCH ×2 (13:29→21:04)
[2019-06-24] MEDS ORDERED: DICLOFENAC SODIUM 75 MG TABCR PO PRN (14:00)
[2019-06-24] MEDS: CEFAZOLIN 2000MG 2,000 MG/15 ML SYR IV SCH (15:42)
[2019-06-24] MEDS: HYDROCORTISONE SOD 25 MG in SYRINGE 0 ML IV SCH (15:49)
[2019-06-24] MEDS: CHECK SCOPOLAMINE PATCH PLACEMENT SCH (15:51)
[2019-06-24] MEDS ORDERED: TRANEXAMIC ACID 1,000 MG in 0.9 % SODIUM CHLORIDE 100 ML IV SCH (16:00)
[2019-06-24] MEDS: clonazePAM 1 MG TAB PO SCH (17:03)
[2019-06-24] MEDS: CHLORHEXIDINE GLUCONATE 0.12% 480 ML SCH (20:01)
[2019-06-24] MEDS ORDERED: ASPIRIN 325 MG ECTAB PO SCH (21:00)
[2019-06-24] MEDS ORDERED: MIRTAZAPINE TAB 15 MG TAB PO SCH (21:00)
[2019-06-24] MEDS ORDERED: SENNA 8.6 MG TAB PO SCH (21:00)
[2019-06-24] MEDS ORDERED: MONTELUKAST SODIUM 10 MG TABLET PO SCH (21:00)
[2019-06-24] MEDS ORDERED: FLUTICASONE PROPIONATE NA SPR 16 GM BTL SCH (21:00)
[2019-06-24] MEDS ORDERED: DULOXETINE HCL 30 MG CAP PO SCH (21:00)
[2019-06-24] MEDS ORDERED: ROPINIROLE HCL 1 MG TABLET PO SCH (21:00)
[2019-06-24] MEDS: FLUTICASONE/SALMETEROL (ADVAIR) 500/50 INH 14 PUFF INH SCH (21:53)
[2019-06-24] MEDS: DOCUSATE SODIUM 100 MG CAP PO SCH (21:53)
[2019-06-24] MEDS: ASPIRIN 81 MG ECTAB PO SCH (21:54)
[2019-06-24] MEDS: AMITRIPTYLINE HCL 10 MG TAB PO SCH (21:54)
[2019-06-24] MEDS: ONDANSETRON INJ 2 MG/ML 2 ML VIAL IV PRN (22:17)
[2019-06-24] MEDS: METOCLOPRAMIDE HCL INJ 5 MG/ML 2 ML VIAL IV PRN (23:42)
[2019-06-25] MEDS: CEFAZOLIN 2000MG 2,000 MG/15 ML SYR IV SCH (00:58)
[2019-06-25] MEDS: CHECK SCOPOLAMINE PATCH PLACEMENT SCH ×2 (00:59→04:09)
[2019-06-25] MEDS: KETOROLAC TROMETHAMINE 15 MG/ML VIAL IV SCH ×2 (00:59→06:33)
[2019-06-25] MEDS: HYDROCORTISONE SOD 25 MG in SYRINGE 0 ML IV SCH ×2 (00:59→08:14)
[2019-06-25] MEDS ORDERED: PROMETHAZINE HCL 12.5 MG in SODIUM CHLORIDE 0.9% 50 ML IV STA (01:23)
[2019-06-25 05:38] LABS: Hematocrit (blood only) 34.1 % (37-47); Hemoglobin 11.4 g/dL (12.0-16.0); Mean Corpuscular Hgb Conc 33.4 g/dL (32-36); Mean Corpuscular Volume 95.8 fL (80-100); Mean Platelet Volume 8.6 fL (7.4-10.4); Platelet Count 393 K/uL (130-400); RDW Coefficient of Variation 13.8 % (11.5-14.5); RDW Standard Deviation 47.9 fL (36.4-46.3); Red Blood Count 3.56 M/uL (4.2-5.4); White Blood Count 19.11 K/uL (4.8-10.8)
[2019-06-25 06:14] LABS: BUN Creatinine Ratio 25.2 (10-20); Calcium 8.1 mg/dl (8.5-10.1); Creatinine Clr Calc Pharmacy 54.5 ml/min; Est GFR (African American) 74.6; Est GFR (Non-African American) 64.4; Potassium 3.9 mmol/L (3.5-5.1)
[2019-06-25] MEDS ORDERED: LEVOTHYROXINE SODIUM 175 MCG TABLET PO SCH (06:30)
[2019-06-25] MEDS: ACETAMINOPHEN 500 MG TAB PO SCH (06:33)
--- NOTE | 2019-06-25 08:01 | Anesthesiology Progress Note ---
Date of Service June 25, 2019 Anesthesia Post Procedure Vital Signs Vital Signs: Temp Pulse Pulse Resp BP Pulse Ox 06/25/19 07:11 37.0 C 102 H 17 161/95 H 94 06/25/19 03:50 36.7 C 96 H 18 161/84 H 96 06/24/19 23:44 36.7 C 88 18 161/84 H 95 06/24/19 20:05 36.6 C 76 17 138/82 93 06/24/19 15:39 36.7 C 75 18 123/68 92 06/24/19 13:37 84 16 136/76 96 06/24/19 12:58 36.7 C 86 18 128/73 95 06/24/19 11:35 72 17 153/86 H 100 06/24/19 11:10 75 15 145/82 H 96 06/24/19 10:40 36.5 C 74 18 132/76 96 06/24/19 10:25 36.8 C 72 18 124/70 95 06/24/19 10:15 36.8 C 71 18 125/69 95 06/24/19 10:05 67 18 123/70 96 06/24/19 09:55 68 18 117/67 95 06/24/19 09:46 37.0 C 72 18 121/71 92 Pain Intensity Right Knee: Pain Intensity: 0 Notes Mental Status: alert / awake / arousable and participated in evaluation Patient Amnestic to Procedure: Yes Pain: adequately controlled Airway Patency, RR, SpO2: stable & adequate BP & HR: stable & adequate Hydration State: stable & adequate Neuraxial Anesthesia: was administered and sensory block resolved Anesthetic Complications: no major complications apparent and Pt Satisfied with anesthetic care Notes: pt continues to experience nausea after medication, however pt thinks it is related to pain medicine and something she ate more than the anesthetic
[2019-06-25] MEDS: ONDANSETRON INJ 2 MG/ML 2 ML VIAL IV PRN (08:13)
[2019-06-25] MEDS: FLUTICASONE/SALMETEROL (ADVAIR) 500/50 INH 14 PUFF INH SCH (08:14)
[2019-06-25] MEDS: PSYLLIUM 58.6% POWDER PACKET PO SCH ×2 (08:15→08:33)
[2019-06-25] MEDS: clonazePAM 1 MG TAB PO SCH (08:25)
[2019-06-25] MEDS: ASPIRIN 81 MG ECTAB PO SCH (08:26)
[2019-06-25] MEDS: AMITRIPTYLINE HCL 10 MG TAB PO SCH (08:27)
[2019-06-25] MEDS: CHLORHEXIDINE GLUCONATE 0.12% 480 ML SCH (08:28)
[2019-06-25] MEDS: DOCUSATE SODIUM 100 MG CAP PO SCH ×2 (08:32→08:33)
[2019-06-25] MEDS ORDERED: KETOCONAZOLE 2% CR 15 GM TUBE EXT SCH (09:00)
[2019-06-25] MEDS ORDERED: hydroCHLOROthiazide 25 MG TAB PO SCH (09:00)
[2019-06-25] MEDS ORDERED: predniSONE 5 MG TAB PO SCH (09:00)
[2019-06-25] MEDS ORDERED: NON-FORMULARY MEDICATION (Azelastine 2 SPRAYS) INTNAS SCH (09:00)
[2019-06-25] MEDS ORDERED: NYSTATIN/TRIAMCIN OINT 15 GM TUBE EXT SCH (09:00)
[2019-06-25] MEDS ORDERED: PANCREAZE (LIPASE 10,500U) CAP PO SCH (09:00)
[2019-06-25] MEDS ORDERED: MULTIVITAMIN TAB PO SCH (09:00)
[2019-06-25] MEDS ORDERED: TIOTROPIUM BROMIDE 5 PUFF/90 MCG INH INH SCH (09:00)
[2019-06-25] MEDS ORDERED: NON-FORMULARY MEDICATION (Lutein 20 MG) PO SCH (09:00)
[2019-06-25] MEDS ORDERED: HYDROXYCHLOROQUINE SULFATE 200 MG TAB PO SCH (09:00)
[2019-06-25] MEDS ORDERED: PANTOprazole 40 MG TAB PO SCH (09:00)
[2019-06-25] MEDS ORDERED: ESCITALOPRAM OXALATE 10 MG TAB PO SCH (09:00)
--- NOTE | 2019-06-25 09:28 | Orthopedic Progress Note ---
Date of Service June 25, 2019 Assessment & Plan (1) History of arthroplasty of right knee: Discharge home today after lunch PT/OT this AM WBAT with immobilizer and walker. December D/C immobilizer tomorrow Ice with EZ wrap Pain control with PO meds Nausea control with PO meds Aspirin and TEDs for DVT prophy New dressing placed. Keep in place. In home therapy with [facility] Contact clinic with questions F/u with Dara Menjivar PA-C as scheduled Subjective This 68 yo F is day 1 s/p right total knee arthroplasty. She has experienced persistent nausea with small amount of emesis and abdominal bloating. She was given IV Zofran, Reglan and Phenergan, as well as placement of a new Scopalimine patch. She states that her nausea is a little better and attributes it to the Oxycodone that she was given for pain control. She does not want an Rx for Oxy and feels that Tylenol and Diclofenac will effectively control her pain. She states that if necessary, she will contact the clinic for the Rx of they are not effective. She has moved her bowels 4 x since surgery. He has been ambulating with the immobilizer and walker without difficulty. She denies CP, SOB, diarrhea, constipation, fever, chills, sweats or lethargy. She states that she will be ready to go home after lunch today with [facility] services. Review of Systems Review of Systems: All systems reviewed & are unremarkable except as noted in HPI & below Physical Exam Physical Exam: Right Knee: dressings removed. Moderate amt of drainage noted on Silverlon, so a new one was placed. Knee ROM from 0-90 without pain. Able to perform SLRT. Able to actively dorsi/plantar flex foot. Non clunking with varus/valgus stress. Solid end point with Johanna. Mild edema and ecchymosis over anterior knee. Patella freely mobile. Calf soft and supple. NV intact in entire Rt LE. Quad strength 3/5. Results & Data Vital Signs (Past 12 Hours) Vital Signs Temp Pulse Pulse Resp BP Pulse Ox 06/25/19 07:50 37.1 C 99 H 22 160/90 H 90 06/25/19 07:11 37.0 C 102 H 17 161/95 H 94 06/25/19 03:50 36.7 C 96 H 18 161/84 H 96 06/24/19 23:44 36.7 C 88 18 161/84 H 95 Laboratory Results 06/25/19 06/25/19 Range/Units 05:27 05:27 WBC 19.11 H (4.8-10.8) K/uL RBC 3.56 L (4.2-5.4) M/uL Hgb 11.4 L (12.0-16.0) g/dL Hct 34.1 L (37-47) % MCV 95.8 (80-100) fL MCH 32.0 (25-34) pg MCHC 33.4 (32-36) g/dL RDW Std Deviation 47.9 H (36.4-46.3) fL RDW Coeff of [place] 13.8 (11.5-14.5) % Plt Count 393 (130-400) K/uL MPV 8.6 (7.4-10.4) fL Sodium 134 L (136-145) mmol/L Potassium 3.9 (3.5-5.1) mmol/L Chloride 103 (98-107) mmol/L Carbon Dioxide 23 (21-32) mmol/L Anion Gap 9.0 (3-11) BUN 23 H (7-18) mg/dl Creatinine 0.91 (0.6-1.2) mg/dl Est Cr Clr Drug Dosing 54.5 ml/min Est GFR ( Amer) 74.6 Est GFR (Non-Af Amer) 64.4 BUN/Creatinine Ratio 25.2 H (10-20) Glucose 135 H (70-99) mg/dl Calcium 8.1 L (8.5-10.1) mg/dl
--- NOTE | 2019-06-25 09:28 | Discharge Summary ---
Date of Service June 25, 2019 Admission HPI Per Admitting Provider HISTORY OF PRESENT ILLNESS: This 68-year-old female was seen in our clinic today for preoperative history and physical. The patient has a longstanding history of bilateral knee pain with the right being greater than the left at this time. She states that the pain in her knee is making it difficult for her to walk. She has been using Voltaren gel and diclofenac sodium tablets with only very minimal relief of her knee pain. She was originally scheduled for a total knee arthroplasty on 07/01/2019, but wishes to proceed sooner. Our next opening is on 06/24 and we will plan on doing a total knee arthroplasty at that time. The patient has failed all conservative measures to help alleviate any pain and improve function in both knees. PAST SURGICAL HISTORY: Deep brain stimulator placement, maxillary sinus endoscopy, lumbar epidural steroid injections, removal of foreign body from the lacrimal abduct, surgical removal of her adrenal gland, colonic biopsy, colonoscopy, upper GI endoscopy, laparoscopic adrenalectomy, stomach biopsy, bilateral breast reduction, section, bilateral cataract removal, D&C, dental surgery, oophorectomy, cholecystectomy, total abdominal hysterectomy, and left knee arthroscopy. PAST MEDICAL HISTORY: Anemia, anxiety, asthma, chronic diarrhea, gastritis, chronic kidney disease, COPD, collagenous colitis, common variable hypogammaglobulinemia, depression, chronically elevated CK, elevated liver function tests, essential tremor, pancreatic insufficiency, gastroesophageal reflux, hypertension, hypothyroidism, hypercholesterolemia, immunocompromised state, insomnia, lactose intolerance, laryngopharyngeal reflux, low serum cortisol levels, lupus, osteoporosis, osteopenia, restless leg syndrome, secondary parkinsonism, obesity. FAMILY HISTORY: Positive for depression, diabetes, emphysema, Debra's thyroiditis, heart attack, hypertension, lung cancer and osteoporosis. ALLERGIES: THE PATIENT HAS MEDICATION ALLERGIES TO BACLOFEN, FLEXERIL, GABAPENTIN, IMITREX, LAMICTAL, NORVASC AND ROBAXIN. CURRENT MEDICATIONS USED: Amitriptyline 50 mg oral tablet 1 tab at bedtime, aspirin 81 mg oral delayed release tablet daily, azelastine 137 mcg/INH 0.1% jamil al spray 2 sprays in each nostril twice daily as needed for allergy symptoms, Benefiber oral powder for reconstitution 5 mL by mouth twice daily as needed for constipation, chlorhexidine 0.12% oral rinse 15 mL by mouth swish and spit, clonazepam 2 mg oral tablet 2-1/2 tablets each morning and at lunch, Creon 24,000 international units oral delayed release capsule 1 cap twice daily with meals per gastrointestinal recommendations, Crestor 10 mg oral tablet 1 tab daily, diclofenac sodium 75 mg oral delayed release tablet 1 tab twice daily as needed for pain, doxycycline monohydrate 100 mg oral tablet 1 tab twice daily, duloxetine 30 mg oral delayed release capsule 1 cap daily, fluticasone 50 mcg/INH nasal spray 2 sprays intranasally as needed for allergy symptoms, Hizentra 20% subcutaneous solution 12 grams subcutaneously every 7 days, hydrochlorothiazide 12.5 mg oral capsule 1 cap daily, ketaconazole 2% topical cream 1 application to abdomen twice daily, levothyroxine 175 mcg oral tablet 1 tab daily, Lexapro 10 mg oral tablet 1 tab twice daily, montelukast 10 mg oral tablet 1 tab every evening, Mycolog II topical cream 1 application topically to the abdomen as directed, Plaquenil sulfate 200 mg oral tablet 2 tabs daily, prednisone 5 mg oral tablet daily, ProAir HFA 90 mcg/INH inhaled aerosol 2 puffs inhaled 4 times daily as needed for wheezing, Prolia 60 mg/mL subcutaneous solution 60 mg every 6 months, Protonix 20 mg oral delayed release tablet daily, Remeron 30 mg oral tablet 1 tab at bedtime, ropinirole 2 mg oral tablet extended release 1 tab daily, Spiriva 18 mcg inhaled capsule 1 each inhaled daily, Voltaren 1% topical gel 2 grams applied to the left knee and right shoulder 4 times daily as needed for pain and Xiidra 5% topical ophthalmic solution 1 drop in both eyes twice daily. Admission Exam Per Admitting Provider PHYSICAL EXAMINATION: Skin: The patient's skin is normal in appearance. No open skin lesions or discharge. Eyes: Pupils are equal and reactive to light and accommodating. Extraocular movements are intact. Throat: Posterior oropharynx is clear with absence of edema, erythema or exudate. Cardiovascular exam: The patient has a regular rate and rhythm with no murmurs or gallops appreciated. Lungs: Auscultation of lung herrera reveals clear breath sounds throughout with no wheezing, rales or rhonchi. Abdomen is obese, nondistended, nontender with normoactive bowel sounds. Extremities: Right knee: The patient has tenderness to palpation over the medial and lateral joint line. There is moderate crepitation with range of motion. Range of motion is from 0 degrees extension to 130 degrees of flexion. There is no edema, erythema, ecchymosis, warmth, palpable bony deformity, no varus or valgus laxity, negative AP drawer sign, negative Johanna test. However, the patient's patella is nonmobile due to arthritic change within the patellofemoral joint. She is neurovascularly intact in the right lower extremity. Calf is soft and supple, nontender to palpation. Neurological exam: Cranial nerves 2-12 are intact. No motor or sensory deficit. Psychological/general exam: The patient is alert and oriented x3 with proper grooming and hygiene. Principal Diagnosis Right knee osteoarthritis Discharge Exam Right Knee: dressings removed. Moderate amt of drainage noted on Silverlon, so a new one was placed. Knee ROM from 0-90 without pain. Able to perform SLRT. Able to actively dorsi/plantar flex foot. Non clunking with varus/valgus stress. Solid end point with Johanna. Mild edema and ecchymosis over anterior knee. Patella freely mobile. Calf soft and supple. NV intact in entire Rt LE. Quad strength 3/5. Discharge Data Allergies Allergy/AdvReac Type Severity Reaction Status Date / Time sumatriptan Allergy Severe ANAPHYLAXIS Verified 06/24/19 05:40 lamotrigine [From Lamictal] Allergy Intermediate TONGUE Verified 06/24/19 05:40 SWELLING amlodipine Allergy Mild HIVES Verified 06/24/19 05:40 gabapentin AdvReac Intermediate STROKE-LIKE Verified 06/24/19 05:40 SYMPTOMS codeine AdvReac Mild GI SYMPTOMS Verified 06/24/19 05:40 cyclobenzaprine AdvReac Mild VERTIGO Verified 06/24/19 05:40 methocarbamol AdvReac Mild VERTIGO Verified 06/24/19 05:40 Consultations 06/24/19 09:47 Consult Case Management - Discharge Planning Routine 06/24/19 10:08 Consult Internal Medicine Routine Procedures Performed Operation Date: 06/24/19 07:15 Actual Procedures p Right Total Knee Arthroplasty(Right) - Daryl Barnes MD Ordered Studies 06/24/19 05:00 US - OR guided needle placemen Routine 06/24/19 07:26 US - OR guided needle placemen Routine Hospital Course (1) History of arthroplasty of right knee: Patient did fairly well overnight. She has experienced persistent nausea with scant emesis that required multiple medications to control. She has been ambulating with her immobilizer and walker without difficulty. She states that she will be ready to go home after lunch. Discharge home today after lunch PT/OT this AM WBAT with immobilizer and walker. May D/C immobilizer tomorrow Ice with EZ wrap Pain control with PO meds Nausea control with PO meds Aspirin and TEDs for DVT prophy New dressing placed. Keep in place. In home therapy with [facility] Contact clinic with questions F/u with Dara Menjivar PA-C as scheduled Total Time Total Time Spent Total Time Spent (In Minutes): 25 mins Total Time Includes: Examination of the Patient, Discharge Planning and Medication Reconciliation Discharge Plan Discharge Items Patient Disposition: Home - Home Health Services Reason For Visit: Right Knee Arthritis Discharge Diagnosis: Right Knee Osteoarthritis Activity: As commented below Lifting: None Bathing: Keep incision dry Bathing Comment: May shower tomorrow Sexual Activity: Wait until after follow-up appointment Exercise/Sports: Wait until after follow-up appointment Driving/Machine Use: No driving until cleared by family protection specialist Weightbearing: Right weightbearing Weightbearing Comment: as tolerated with immobilizer and walker assistance Non-emergency contact: Primary Care Provider Call non-emergency contact if: you have any medication questions, your pain is not controlled, your temperature is above 101.5, your wound has increased redness and your wound has increased drainage Follow-up/Referrals: Alyse Iglesias [Primary Care Provider] - Diet: Regular Addtl Attending Provider Instructions: Post-operative Instructions Dear Patient and Family/Friends, Before you are discharged from the hospital, it is important to know what to expect when you get home after surgery. To that end, we have created this sheet of discharge instructions which covers many commonly asked questions. Make sure you go through this sheet in its entirety with your nurse before you are discharged. Please note that we will go over the specifics of your surgery and recovery when you return for your first post-operative visit. Sincerely, Dr. Barnes Medications 1. You will increase your daily Aspirin from one 81 mg tab to two for 30 days post operatively. 2. Diclofenac Sodium 75 mg: Continue your daily dosage post operatively to help with pain and inflammation. If you need a refill, please contact our clinic. 3. Extra Strength Tylenol 500 mg: take 2 tabs every 8 hrs as needed for pain relief. Use for 30 days post operatively. 4. Zofran ODT 4 mg tabs: place 1 tab under your tongue and allow to dissolve every 8 hrs as needed for post operative nausea. Pain Expect to be in a fair amount of pain after surgery. Remember, our goal is not to eliminate your pain, but to make it tolerable. It is a good idea to stay ahead of your pain by taking the medications you were prescribed once you get home. Typically, the pain starts improving 3-7 days after surgery. You should start weaning off the narcotic pain medication (oxycodone, hydrocodone, hydromorphone, morphine) as soon as your pain improves. Please call our office if your pain is not adequately controlled. Ice Ice your operative site at least 5 times a day for 15-30 minutes at a time. Make sure you have a thin cloth between the ice or cooling unit and your skin to prevent king bite. This is especially important if you received a nerve block. Continue icing your operative site for the first 5-7 days after surgery, then as needed. Diet/Nausea/Vomiting Start by drinking clear liquids and eating crackers. If you can tolerate this, then you may resume your normal diet. If you feel nauseated or vomit, take Zofran/ondansetron (if prescribed). Please call our office if you have intractable nausea or vomiting, or, if after hours, you may go to the Emergency Room for help. Constipation Constipation is a common side effect of narcotic pain medication. If you have not had a bowel movement within 2 days after surgery, we recommend purchasing an over the counter laxative such as Milk of Magnesia, Dulcolax, or Miralax from a local pharmacy, and taking it as instructed. Call our clinic if any questions. Slings and Braces If you were placed in a sling or brace, it must be worn at all times, including sleep. You may remove your sling or brace for physical therapy, home exercises, and showering. The length of time you will be in your brace and range of motion restrictions depends on what surgery you had; these details will be reviewed at your first post-operative appointment. Nerve block The anesthesia team sometimes places a nerve block to help with post-operative pain control. This results in significant numbness and inability to move the extremity. The nerve block usually wears off in 8-12 hours, but sometimes can last up to 24 hours. Please call our office if you are still unable to move your extremity after 24 hours, unless you received a pain pump to take home. Nerve blocks typically wear off quickly, so start taking pain medication as soon as you start feeling soreness near your surgical site. Weight bearing and Range of Motion. Do not bear any weight through your operative extremity immediately after surgery. If you had upper extremity surgery, do not lift anything with that arm. If you are in a knee brace, keep it locked in place until your follow-up. We will discuss your weight bearing, range of motion, and lifting restrictions in detail at your first post-operative appointment. Continuous Passive Motion (CPM) Machine If you were prescribed a CPM machine, it will start after your first post- operative appointment, at which time we will give you instructions on the range of motion settings and duration of treatment Physical therapy You will be given a prescription for physical therapy or occupational therapy at your first post-operative appointment. Typically, patients start therapy within 1 week of surgery Wound care and showering We will inspect your wound at your first post-operative visit, and may do a dressing change at that time. Most patients will be in a water-proof dressing that is removed 14 days after surgery. It is normal to see some dried blood on the dressing. Do not remove your dressing, paper strips or sutures yourself unless you are given permission. Showering is allowed the day after surgery. Do not scrub or remove any d ressings. The wound should not be submerged underwater (i.e. in a bathtub or pool) until 4 weeks after surgery LUKAS stockings If you were given white stockings, these are to be worn at all times except to shower (on both legs) for the first 2 weeks after surgery. Driving You may not drive while taking narcotic pain medication or while in a cast, splint, sling or brace. You, the patient, need to make the final determination about when you are safe to drive, however, the earliest you may consider driving after surgery is below: Hand/Wrist/Elbow Surgery: 3 days Shoulder Surgery: 2 weeks Hip,/Knee/Ankle Surgery: 4 weeks Fracture repair: 6 weeks Return to Work Your return to work depends on what surgery was done and what type of work you do. Please bring any paperwork your employer needs completed to your first post-operative visit. Also, bring a description of your job duties, as this helps us to understand what risks you may face at work. Travel Avoid long distance travel (greater than 1 hour) in airplanes and cars for the first 6 weeks after surgery. If you must travel, you need to have a Doppler ultrasound done before you travel to rule out a blood clot in your legs. Follow-up You should have a follow-up appointment already scheduled 1-2 days after surgery. If not, please contact our office to make this appointment before you leave the hospital. When to call the office It is normal to have swelling and bruising in the limb that was operated on. This will improve with time. It is also normal to have fevers for the first 2 days after surgery. Reasons you should call your doctor include: Uncontrolled pain; Nausea, vomiting, or constipation that does not improve with medication; Fevers over 101.5, chills, sweats; Drainage or bleeding from the wound; Foul odor; Spreading areas of redness; Any other concerns Pending Studies at Discharge: No Stand-Alone Forms: My [facility] Pictorama, Smoking Cessation Medications and DC Order Prescriptions: New ondansetron 4 mg tablet,disintegrating 4 mg PO Q8H 5 Days Qty: 15 RF: 0 Continued ropinirole 2 mg tablet extended release 24 hr 4 mg PO QPM 90 Days Qty: 180 RF: 3 fluticasone propion-salmeterol [Advair Diskus] 500-50 mcg/dose blister with device 1 inh INHALATION Q12H Qty: 3 RF: 3 azelastine 137 mcg (0.1 %) aerosol,spray 2 spray intranasal QAM RF: 0 levothyroxine 175 mcg Tablet 175 mcg PO QAM RF: 0 montelukast 10 mg Tablet 10 mg PO HS RF: 0 fluticasone propionate 50 mcg/actuation [place],Suspension 2 spray INTRANASAL HS RF: 0 lutein 20 mg Capsule 20 mg PO QAM RF: 0 Hizentra 1 gram/5 mL (20 %) Solution 1 dose subcut WK RF: 0 prednisone 5 mg Tablet 5 mg PO QAM RF: 0 albuterol sulfate [ProAir HFA] 90 mcg/actuation Hfa Aerosol Inhaler 2 puff INHALATION QID PRN (Reason: SHORT OF BREATH) RF: 0 Spiriva with HandiHaler 18 mcg Capsule, W/Inhalation Device 1 cap INHALATION QAM RF: 0 Creon 12,000-38,000 -60,000 unit Capsule,Delayed Release(Dr/Ec) 1 - 2 cap PO QAM RF: 0 Prolia 60 mg/mL Syringe 60 mg SUBCUT UD RF: 0 Benefiber Clear SF (dextrin) 3 gram/3.5 gram Powder In Packet 3 g PO TIDM RF: 0 Xiidra 5 % Dropperette 1 drp OPB BID RF: 0 amitriptyline 10 mg Tablet 10 mg PO BID RF: 0 Optimized 1,000 mcg PO QAM RF: 0 pantoprazole [Protonix] 20 mg Tablet,Delayed Release (Dr/Ec) 20 mg PO QAM RF: 0 nystatin-triamcinolone 100,000-0.1 unit/gram-% Ointment 1 applic TOPICAL QAM RF: 0 mirtazapine [Remeron] 30 mg Tablet 30 mg PO HS RF: 0 clonazepam 2 mg Tablet 3 mg PO BIDM RF: 0 hydrochlorothiazide 12.5 mg Capsule 12.5 mg PO QAM RF: 0 diclofenac sodium 75 mg Tablet,Delayed Release (Dr/Ec) 75 mg PO TID RF: 0 hydroxychloroquine [Plaquenil] 200 mg Tablet 400 mg PO QAM RF: 0 ketoconazole 2 % Cream 1 applic TOPICAL QAM RF: 0 escitalopram oxalate [Lexapro] 10 mg Tablet 10 mg PO QAM RF: 0 duloxetine 30 mg Capsule,Delayed Release(Dr/Ec) 30 mg PO QPM RF: 0 chlorhexidine gluconate 0.12 % Mouthwash 15 ml BUCCAL BID RF: 0 Changed aspirin 81 mg Tablet,Delayed Release (Dr/Ec) 81 mg PO BID Qty: 0 RF: 0 Discharge Orders: Discharge Order (Routine); Ordered 06/25/19 Ordered By: Mazin Menjivar Admission Data Admit Date/Time: 06/24/19 09:47 Attending Provider: Daryl Barnes Admit Provider: Daryl Barnes Primary Care Provider: Alyse Iglesias Other Providers: aJmi Jensen ; Livia Barron ; Miquel Short Robert R. ; Cecilia Her ; Jaden Tran ; Aleksey Bhagat ; Latrell Stanley ; Elo Rowe ; Rose Cope ; Evangelina Jarrett ; Delmer Ring ; Felicity Lopez ; Dimas Barone ; Praful De Guzman ; Jami Jeffers ; Joel Barajas ; Juanita Ba ; Edna Chen ; Justin Muro ; Miquel Rose ; Last Estrada ; Brittney Knox ; Hiram Laura ; Bakari Ramirez ; Jonathan Felix ; Go Raman ; Carlos Perry.
[2019-06-25] MEDS: METOCLOPRAMIDE HCL INJ 5 MG/ML 2 ML VIAL IV PRN (10:48)
[2019-06-25 11:37] VITALS: BP 149/95; PULSE 98; TEMP 98.2; O2SAT 92
== END 2019-06-25 12:23 | disposition home health service (06) | DRG 470 ==
LOC: ASU 05:10 → 3E 09:47